=== PATIENT | female | born 1965 | race Caucasian/White ===

== ENCOUNTER 2017-05-01 09:27 | Outpatient (CLI) | payer MEDICARE, MEDICAID ==
--- OUTSIDE RECORDS SUMMARY | 2017-05-01 09:29 | XMS | Clinical Summary ---
:1965 Author Organization [facility] Address [address] [place] [address] Phone Care Team Providers Name Role Phone , Primary Care Provider Unavailable Allergies No Known Allergies Current Medications Prescription Sig. Disp. Refills Start Date End Date Status sevelamer (RENVELA) 800 mg Take 4,000 mg by Active tablet mouth 3 (three) times daily with meals . simvastatin (ZOCOR) 40 MG Take 40 mg by Active tablet mouth nightly. atorvastatin (LIPITOR) 40 Take 20 mg by Active MG tablet mouth daily . amLODIPine (NORVASC) 5 MG Take 10 mg by Active tablet mouth daily . hydrALAZINE (APRESOLINE) Take 10 mg by Active 10 MG tablet mouth 3 (three) times daily. aspirin 81 MG EC tablet Take 81 mg by Active mouth every other day. Active Problems Problem Noted Date Obesity (BMI 30-39.9) 03/15/2016 Essential hypertension, hypertension with unspecified goal 03/15/2016 Diabetes mellitus type 2, controlled, without complications ([facility]) 03/15/2016 Coronary artery disease involving prairie band coronary artery of prairie band heart 03/15 without angina pectoris Hyperlipidemia, unspecified hyperlipidemia type 03/15/2016 Secondary hyperparathyroidism of renal origin ([facility]) 03/15/2016 Pre-transplant evaluation for chronic kidney disease 09/26/2015 Last Assessment & Plan: She is an acceptable candidate pending cardiac cath/cardiac clearance. She was recently hospitalized in November 2015 due to a new diagnosis of CHF. Otherwise she has met her goal weight and reached an appropriate BMI. ESRD (end stage renal disease) ([facility]) 09/26/2015 Last Assessment & Plan: She has been on dialysis for six years. She does produce small amounts of urine at this time. She is an acceptable candidate for kidney transplant pending cardiac clearance. Healthcare maintenance 08/30/2014 Last Assessment & Plan: The patient is up to date on her pap smear and is due for a mammogram. Pre-transplant evaluation for ESRD (end stage renal disease) 01/05/2013 Last Assessment & Plan: 49 y/o female with ESRD secondary to an unknown etiology who presents today in weight management clinic. The patient has not met her weight loss goal to 189 lbs. The patient will remain inactive andwill follow up in our weight management clinic in 3 months. HTN (hypertension) 01/05/2013 Last Assessment & Plan: She will continue to follow up with her primary care physician. Pre-transplant evaluation for CKD (chronic kidney disease) 01/05/2013 Last Assessment & Plan: Patient needs surveillance stress tests. Obesity Overview: BMI 41.5 wt [id number] Last Assessment & Plan: She has been monitoring her intake and exercising as tolerated. Family History Medical History Relation Name Comments Unremarkable Brother 45 Unremarkable Son 18 Relation Name Status Comments Brother 45 Alive Daughter 24 Alive neurofibromatosis Father unknown Other Mother 63 Son 18 Alive Social History Tobacco Use Types Packs/Day Years Used Date Former Smoker Cigarettes 0.2 1 02/03/1999 - 02/04/2000 Smokeless Tobacco: Never Used Alcohol Use Drinks/Week oz/Week Comments Yes 0.0 Social Sex Assigned at Date Recorded Not on file Last Filed Vital Signs Vital Sign Reading Time Taken Blood Pressure 173/81 03/14/2016 9:44 AM CDT Pulse 70 03/14/2016 9:44 AM CDT Temperature 35.7 C (96.2 F) 03/14/2016 9:44 AM CDT Respiratory Rate 18 03/14/2016 9:44 AM CDT Oxygen Saturation - - Inhaled Oxygen Concentration - - Weight 80.6 kg (177 lb 12.8 oz) 03/14/2016 9:44 AM CDT Height 157 cm (5' 1.81") 01/02/2016 8:39 AM CDT Body Mass Index 32.72 03/14/2016 9:44 AM CDT Plan of Treatment Health Maintenance Due Date Last Done Comments INFLUENZA VACCINE 04/27/2017 Results Not on filefrom Last 3 Months
--- NOTE | 2017-05-19 16:33 | MMO ---
BILATERAL DIGITAL SCREENING MAMMOGRAMS: Date: 05/01/17 This patient's mammogram was interpreted with the assistance of computer-aided detection. Comparison made with exam from 12/15/12. FINDINGS: There are scattered fibroglandular densities with benign-appearing calcifications. No suspicious mas ses or calcifications are seen. IMPRESSION: BIRADS 2: Benign Finding(s) Return to annual mammographic screening. POS: [facility]
== END 2017-05-01 09:28 | disposition home or self-care (01) ==
LOC: MAMMO 09:27
PROVIDERS: ATTEND Family Medicine
DX: Z12.31 Encounter for screening mammogram for malignant neoplasm of breast (principal)
CPT/HCPCS: 77067; G0202

== ENCOUNTER 2017-08-06 02:43 | Emergency (ER) | payer MEDICARE, MEDICAID ==
[2017-08-06] MEDS ORDERED: Ondansetron ODT 4 MG TAB ONE (03:44)
[2017-08-06] MEDS ORDERED: Acetaminophen 500 MG TAB ONE (03:44)
[2017-08-06 04:40] LABS: #Eosinphils 0.1 thou/uL (0.0-0.7); #Lymphocytes 0.9 thou/uL (1.20-3.40); #Monocytes 0.4 thou/uL (0.11-0.59); #Neutrophils 4.5 thou/uL (1.40-6.50); %Basophils 0.7 % (0.0-1.0); %Eosinophils 1.4 % (0.0-10.0); %Monocytes 6.8 % (0.0-10.0); %Neutrophils 76.2 % (42.0-75.0); Hemoglobin 9.6 g/dL (12.0-16.0); Mean Corpuscular HGB CONC 33.9 g/dL (32.0-36.0); Mean Corpuscular Hemoglobin 30.1 pg (27.0-31.0); Mean Corpuscular Volume 88.8 fl (81.0-99.0); Mean Platelet Volume 8.4 fL (7.4-10.4); Platelet Count 176 thou/uL (130-400); RBC Distribution Width 14.4 % (11.5-14.5); Red Blood Cell (RBC) Count 3.19 mill/uL (4.20-5.40); White Blood Cell (WBC) Count 5.9 thou/uL (4.8-10.8)
[2017-08-06 04:57] LABS: ALT (SGPT) 7 U/L (8-55); AST (SGOT) 15 U/L (5-34); Albumin 3.8 g/dL (3.5-5.0); Alkaline Phosphatase 80 U/L (40-150); Anion Gap 20 mmol/L (10-20); BUN (Urea Nitrogen) 39 mg/dL (9.8-20.1); Calc. Creatinine Clearance 0 mL/min (70-130); Calcium 10.6 mg/dL (7.8-10.44); Carbon Dioxide 26 mmol/L (22-29); Chloride 92 mmol/L (98-107); Estimated GFR-MDRD 4; Globulin 3.3 g/dL (2.4-3.5); Glucose 99 mg/dL (70-105); Potassium 5.5 mmol/L (3.5-5.1); Protein, Total 7.1 g/dL (6.0-8.3); Sodium 132 mmol/L (136-145)
--- NOTE | 2017-08-06 07:49 | RAD ---
CHEST 2 VIEWS: Date: 08/06/17 HISTORY: 52-year-old female with history of cough, congestion, and flu-like symptoms. COMPARISON: 06/20/16. FINDINGS: There is very severe enlargement of the cardiac silhouette, which is considerably increased when comp ared to the 06/20/16 study. There is some mild vascular congestion, but no confluent pneumonia, pleur al effusion, or overt edema. IMPRESSION: Very marked enlargement of the cardiac silhouette with possibilities including that of a large perica rdial effusion and/or severe cardiomegaly. Mild vascular congestion without pneumonia or acute edema. POS: [facility]
== END 2017-08-06 05:36 | disposition home or self-care (01) ==
LOC: ERS 02:43
DX: K52.9 Noninfective gastroenteritis and colitis, unspecified (principal); I11.0 Hypertensive heart disease with heart failure; I50.9 Heart failure, unspecified; E11.9 Type 2 diabetes mellitus without complications; E78.5 Hyperlipidemia, unspecified; Z99.2 Dependence on renal dialysis
CPT/HCPCS: 36415; 71046; 80053; 85025; Q0162

== ENCOUNTER 2017-08-15 03:08 | Emergency (ER) | payer MEDICARE, MEDICAID ==
[2017-08-15] MEDS ORDERED: Dicyclomine 20 MG TAB ONE (05:18)
[2017-08-15 05:23] LABS: #Eosinphils 0.1 thou/uL (0.0-0.7); #Lymphocytes 0.9 thou/uL (1.20-3.40); #Monocytes 0.4 thou/uL (0.11-0.59); #Neutrophils 6.6 thou/uL (1.40-6.50); %Basophils 0.3 % (0.0-1.0); %Eosinophils 0.7 % (0.0-10.0); %Lymphocytes 11.2 % (21.0-51.0); %Monocytes 4.4 % (0.0-10.0); %Neutrophils 83.5 % (42.0-75.0); Hemoglobin 9.2 g/dL (12.0-16.0); Mean Corpuscular HGB CONC 33.8 g/dL (32.0-36.0); Mean Corpuscular Hemoglobin 30.5 pg (27.0-31.0); Mean Corpuscular Volume 90.2 fl (81.0-99.0); Mean Platelet Volume 8.3 fL (7.4-10.4); Platelet Count 189 thou/uL (130-400); RBC Distribution Width 14.4 % (11.5-14.5); Red Blood Cell (RBC) Count 3.02 mill/uL (4.20-5.40); White Blood Cell (WBC) Count 7.9 thou/uL (4.8-10.8)
[2017-08-15 05:48] LABS: ALT (SGPT) Less than 7 U/L (8-55); AST (SGOT) 13 U/L (5-34); Albumin 3.9 g/dL (3.5-5.0); Alkaline Phosphatase 82 U/L (40-150); Anion Gap 18 mmol/L (10-20); BUN (Urea Nitrogen) 26 mg/dL (9.8-20.1); Bilirubin, Total 0.9 mg/dL (0.2-1.2); Calc. Creatinine Clearance 0 mL/min (70-130); Calcium 10.9 mg/dL (7.8-10.44); Carbon Dioxide 29 mmol/L (22-29); Chloride 92 mmol/L (98-107); Estimated GFR-MDRD 5; Globulin 3.3 g/dL (2.4-3.5); Glucose 116 mg/dL (70-105); Potassium 4.7 mmol/L (3.5-5.1); Protein, Total 7.2 g/dL (6.0-8.3); Sodium 134 mmol/L (136-145)
== END 2017-08-15 06:21 | disposition home or self-care (01) ==
LOC: ERS 03:08
DX: R19.7 Diarrhea, unspecified (principal); I11.0 Hypertensive heart disease with heart failure; I50.9 Heart failure, unspecified; E11.9 Type 2 diabetes mellitus without complications; E78.5 Hyperlipidemia, unspecified; Z99.2 Dependence on renal dialysis; Z87.891 Personal history of nicotine dependence; Z79.899 Other long term (current) drug therapy
CPT/HCPCS: 36415; 80053; 82274; 85025; 99284

== ENCOUNTER 2018-05-21 08:11 | Outpatient (CLI) | payer MEDICARE, MEDICAID ==
--- NOTE | 2018-05-21 10:50 | ULT ---
RENAL ULTRASOUND: HISTORY: Renal failure. TECHNIQUE: Real-time imaging of the right and left kidneys was performed. FINDINGS: Both kidneys show cortical thinning. The right kidney measures 9.6 cm. The left kidney is difficult to visualize. It measures approximately 5.6 cm in size. There is what appears to be a probable cys t, measuring 1.6 cm. No obstruction. The bladder was empty at the time of this exam. IMPRESSION: Cortical thinning of both kidneys with a small left kidney. No obstruction. Incidental note is made of a 1.6 cm left renal cyst. POS: [facility]
== END 2018-05-21 08:12 | disposition home or self-care (01) ==
LOC: BICULT 08:11
PROVIDERS: ATTEND Urology
DX: N28.9 Disorder of kidney and ureter, unspecified (principal)
CPT/HCPCS: 76770

== ENCOUNTER 2018-07-16 14:59 | Inpatient (IN) | payer MEDICARE, MEDICAID ==
[2018-07-16 16:49] LABS: #Eosinphils 0.1 thou/uL (0.0-0.7); #Lymphocytes 1.6 thou/uL (1.20-3.40); #Monocytes 0.4 thou/uL (0.11-0.59); #Neutrophils 4.8 thou/uL (1.40-6.50); %Basophils 0.1 % (0.0-1.0); %Eosinophils 1.9 % (0.0-10.0); %Monocytes 5.6 % (0.0-10.0); %Neutrophils 69.5 % (42.0-75.0); Hemoglobin 10.7 g/dL (12.0-16.0); Mean Corpuscular HGB CONC 32.6 g/dL (32.0-36.0); Mean Corpuscular Hemoglobin 30.6 pg (27.0-31.0); Mean Corpuscular Volume 93.6 fL (78.0-98.0); Mean Platelet Volume 9.1 fL (7.4-10.4); Platelet Count 226 thou/uL (130-400); RBC Distribution Width 11.5 % (11.5-14.5); Red Blood Cell (RBC) Count 3.51 mill/uL (4.20-5.40); White Blood Cell (WBC) Count 6.9 thou/uL (4.8-10.8)
[2018-07-16 16:56] LABS: INR-International Normal Ratio 1.1; PTT 29.9 SEC (22.9-36.1); Prothrombin Time 14.4 SEC (12.0-14.7)
--- NOTE | 2018-07-16 17:03 | CT ---
CT BRAIN WITHOUT CONTRAST: Date: 07/16/18 HISTORY: Left eye pain, blurry vision, possible stroke. FINDINGS: No evidence of acute infarct, hemorrhage, midline shift, or abnormal extra-axial fluid collections ar e seen. The ventricular size is appropriate and the basilar cisterns are patent. The bony calvarium i s intact. There is mucosal disease in the right sphenoid sinus. IMPRESSION: No CT evidence of acute intracranial process. POS: [facility]
[2018-07-16 17:10] LABS: ALT (SGPT) Less than 7 U/L (8-55); AST (SGOT) 13 U/L (5-34); Albumin 4.3 g/dL (3.5-5.0); Alkaline Phosphatase 127 U/L (40-150); Anion Gap 22 mmol/L (10-20); BUN (Urea Nitrogen) 44 mg/dL (9.8-20.1); Bilirubin, Total 0.6 mg/dL (0.2-1.2); CK (CPK) 62 U/L (29-168); Calc. Creatinine Clearance 0 mL/min (70-130); Calcium 10.3 mg/dL (7.8-10.44); Carbon Dioxide 28 mmol/L (22-29); Chloride 93 mmol/L (98-107); Estimated GFR-MDRD 4; Globulin 4.2 g/dL (2.4-3.5); Glucose 87 mg/dL (70-105); Potassium 5.2 mmol/L (3.5-5.1); Protein, Total 8.5 g/dL (6.0-8.3); Sodium 138 mmol/L (136-145)
[2018-07-16 17:41] LABS: CKMB 3.5 ng/mL (0-6.6)
--- NOTE | 2018-07-16 19:47 | PDOC.FPRHP ---
- History of Present Illness Chief Complaint: Vision loss History of Present Illness: This is a 53 yo female with a pmh of CHF, DM2, HLD, HTN, ESRD on HD who presents to the ED with a cc of left eye blurred vision. She states that it started after she bend down. She denies pain but states that her vision will go from blurry to absent. Pt reports nothing like this before. She was seen at the [facility] and was sent to an eye doctor who instructed her to come into the ED for further evaluation. She denies any previous vision loss, temporal pain, any loss of strength, or changes in sensation. - Allergies/Adverse Reactions Allergies Allergy/AdvReac Type Severity Reaction Status Date / Time iodine Allergy Verified 07/16/18 23:17 - Home Medications Medication Instructions Recorded Confirmed Type Cholecalciferol (Vitamin D3) 1,000 units PO DAILY 07/16/18 07/16/18 History [Vitamin D] Midodrine HCl 10 mg PO ASDIR 07/16/18 07/16/18 History Pantoprazole [Protonix] 40 mg PO DAILY 07/16/18 07/16/18 History Sevelamer Carbonate [Renvela] 6 tab PO TID-WM 07/16/18 07/16/18 History - History PMHx: DM2, HTN, HLD, ESRD on HD MWF, CHF PSHx: Rt arm av fistula, hysterectomy FHx: noncontributory Social: Denies current RENAN, history of tobacco use - Review of Systems General: denies: fever/chills, weight/appetite/sleep changes Eyes: reports: vision changes (loss in right eye. She states she can see light. See denies any improvement in her vision). denies: eye pain ENT: denies: nasal congestion, rhinorrhea Respiratory: denies: cough, congestion, shortness of breath Cardiovascular: denies: chest pain, palpitation, edema Gastrointestinal: denies: nausea, vomiting, diarrhea, constipation Skin: denies: rashes, lesions Musculoskeletal: denies: pain, tenderness Neurological: denies: numbness, syncope, weakness Psychological: denies: anxiety, depression - Vital signs BP: 145/83 HR: 71 RR: 17 Tmax: 98.0 Pox: 100% on ra Wt: 89.36 kg - Physical Exam Constitutional: NAD, awake, alert and oriented, well developed HEENT: normocephalic and atraumatic, EOMI, MMM, other (poor dentition, left eye has no pupillary reflex but reacts to light in right eye.) Neck: trachea midline, no JVD Chest: no-tender to palpation Heart: RRR, normal S1/S2 (Systolic murmur 2/6) Lungs: CTAB, no respiratory distress, good air movement, no wheezing Abdomen: soft, non-tender, bowel sounds present Musculoskeletal: normal structure, normal tone, ROM grossly normal Neurological: normal sensation, other (Cranial nerve III-XII intact, loss of vision in left eye) Skin: no rash/lesions, capillary refill <2 seconds Heme/Lymphatic: no unusual bruising or bleeding Psychiatric: normal mood and affect, good judgment and insight FMR H&P: Results - Labs Result Diagrams: 07/16/18 16:32 07/16/18 16:32 Lab results: WBC 6.9 thou/uL (4.8-10.8) 07/16/18 16:32 Hgb 10.7 g/dL (12.0-16.0) L 07/16/18 16:32 Hct 32.9 % (36.0-47.0) L 07/16/18 16:32 MCV 93.6 fL (78.0-98.0) 07/16/18 16:32 Plt Count 226 thou/uL (130-400) 07/16/18 16:32 Neutrophils % 69.5 % (42.0-75.0) 07/16/18 16:32 Sodium 138 mmol/L (136-145) 07/16/18 16:32 Potassium 5.2 mmol/L (3.5-5.1) H 07/16/18 16:32 Chloride 93 mmol/L (98-107) L 07/16/18 16:32 Carbon Dioxide 28 mmol/L (22-29) 07/16/18 16:32 BUN 44 mg/dL (9.8-20.1) H 07/16/18 16:32 Creatinine 9.49 mg/dL (0.6-1.1) H 07/16/18 16:32 Glucose 87 mg/dL (70-105) 07/16/18 16:32 Calcium 10.3 mg/dL (7.8-10.44) 07/16/18 16:32 Total Bilirubin 0.6 mg/dL (0.2-1.2) 07/16/18 16:32 AST 13 U/L (5-34) 07/16/18 16:32 ALT Less than 7 U/L (8-55) L 07/16/18 16:32 Alkaline Phosphatase 127 U/L (40-150) 07/16/18 16:32 Creatine Kinase 62 U/L (29-168) 07/16/18 16:32 CK-MB (CK-2) 3.5 ng/mL (0-6.6) 07/16/18 16:31 Serum Total Protein 8.5 g/dL (6.0-8.3) H 07/16/18 16:32 Albumin 4.3 g/dL (3.5-5.0) 07/16/18 16:32 - Radiology Interpretation CT scan - head Status: report reviewed by me (No acute intracranial process) FMR H&P: A/P - Problem List (1) Vision loss of left eye Current Visit: Yes Status: Acute Code(s): H54.62 - UNQUALIFIED VISUAL LOSS, LEFT EYE, NORMAL VISION RIGHT EYE (2) ESRD (end stage renal disease) on dialysis Current Visit: Yes Status: Acute Code(s): N18.6 - END STAGE RENAL DISEASE; Z99.2 - DEPENDENCE ON RENAL DIALYSIS (3) CHF (congestive heart failure) Current Visit: Yes Status: Acute Code(s): I50.9 - HEART FAILURE, UNSPECIFIED (4) Type 2 diabetes mellitus Current Visit: Yes Status: Acute (5) HLD (hyperlipidemia) Current Visit: Yes Status: Acute Code(s): E78.5 - HYPERLIPIDEMIA, UNSPECIFIED (6) HTN (hypertension) Current Visit: Yes Status: Acute Code(s): I10 - ESSENTIAL (PRIMARY) HYPERTENSION (7) Elevated troponin Current Visit: Yes Status: Acute Code(s): R74.8 - ABNORMAL LEVELS OF OTHER SERUM ENZYMES - Plan This is a 53 yo female with a pmh of CHF, DM2, HLD, HTN, ESRD on HD Vision loss in left eye 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 Mullen HTN -Continue home meds HLD -Continue home meds DM2 -Continue home meds -ACHS nishant, CORKY Code: Full Prophylaxis: SCDS Family: none at bedside Disposition: home in 1-2 days FMR H&P: Upper Level - Pertinent history 53F who was shopping at [employer] yesterday when she had an acute painless loss of vision in her left eye. She is still able to see out of the eye, but has very limited visual acuity. The visual symptoms remain unchanged since onset. She denies any recent history of headaches, jaw claudication, neck stiffness, myalgias/arthralgias. After initial onset she presented to [facility] ED and was evaluated. She was discharged home with an ophthalmology referral. Ophtho evaluation revealed likely central retinal artery occlusion, per patient. She then proceeded to go to her scheduled dialysis session where her postal supervisor suggested she present to ED for further w/u. . - Pertinent findings Gen: A&Ox3 CV: RRR; no murmurs Pulm: CTA-B Neuro: CNII-XII intact; normal sensation and strength of all extremities; decreased visual acuity of left eye K: 5.2 BUN/Cr: 44/9.5 trop: 1.34 CK-MB: 3.5 CT head: no acute process EKG: NSR - Plan Date/Time: 07/16/181945 IJames, have evaluated this patient and agree with findings/plan as outlined by validation intern resident. Pertinent changes/additions are listed here. Likely central retinal artery occlusion: established via ophthalmologic evaluation in the outpatient setting. She presents outside the window for any interventional therapy. Will finish work up with TTE and CT head/neck. After speaking with radiology, there is no confirmatory imaging study for CRAO. Some suspicion for temporal arteritis. She is not c/o headache or jaw claudication Elevated troponin: no chest pain with normal EKG and negative CK-MB. Continue to trend with repeat EKGs ESRD on HD: Dr. Mullen has evaluated patient and will be resuming her HD tomorrow Addendum - Attending - Attending Attestation Date/Time: 07/16/182229 I personally evaluated the patient and discussed the management with Dr. Tanner /Mikhail. I agree with the History, Examination, Assessment and Plan documented above with any addition or exceptions noted below. Patient here with acute onset of painless vision loss in L eye yesterday. She reports blurring and minimal vision, but can see general shapes out of that eye. Denies headache, chest pain, shortness of breath, fevers, chills, nausea, malaise. She dies have some visual acuity in the L eye, but definitely a medial visual field defect. EOMI and L pupil is reactive but sluggish. Concern for retunal artery occlusion in known vasculopath. Will obtain workup for occlusion , vascular disease, cardioembolic disease, or inflammatory condition such as giant cell arteritis. Will obtain CTA, ESR, and have discussed case with Ophthalmology. If this is arterial occlusion, she is outside the window for therapeutics. She also has elevated troponin in the absence of CKMB elevation or chest pain. Likely 2/2 her ESRD status, monito for chest pain or telemetry changes.
[2018-07-16] MEDS ORDERED: Dextrose 50% Abboject 50 ML SYRINGE SLOW IVP PRN (21:07)
[2018-07-16] MEDS ORDERED: Dextrose 5% in Water 1,000 ML IV PRN (21:07)
[2018-07-16] MEDS ORDERED: Acetaminophen 325 MG TAB PO PRN (21:07)
[2018-07-16] MEDS ORDERED: HumaLOG 300 UNITS/3 ML VIAL SC PRN ×2 (21:07)
[2018-07-16 23:11] LABS: CKMB 2.6 ng/mL (0-6.6)
[2018-07-16 23:28] VITALS: BMI 21.6
[2018-07-16 23:35] LABS: Critical Call Chem Troponin I RESULT DECREASING; Troponin I 1.238 ng/mL (< 0.028)
--- NOTE | 2018-07-17 01:44 | CON ---
DATE OF CONSULTATION: NEPHROLOGY CONSULTATION REASON FOR CONSULTATION: End stage renal disease, on maintenance hemodialysis. HISTORY OF PRESENT ILLNESS: This is a very pleasant 53-year-old female with the past medical history of end-stage renal disease and hypertension, who was sent to the emergency room after loss of vision in one of her eyes, which was attributed to central retinal artery occlusion and was sent here for vasculitic workup. The patient at this time denies no headache, numbness, tingling, or weakness. Has partial loss of vision in one of her eyes. PAST MEDICAL HISTORY: Significant for anemia, end-stage renal disease, history of tunneled dialysis catheter, history of hypertension, history of AV fistula, history of pericardial effusion, history of tobacco abuse in the past, history of secondary hypoparathyroidism. SOCIAL HISTORY: No alcohol or drug use. MEDICATIONS: Home medication, list reviewed. Hospital medication, list reviewed. ALLERGIES: REVIEWED. REVIEW OF SYSTEMS: A 15-point review of systems was performed and was negative except for positives noted above. NECK: No swelling or lumps. NOSE: No epistaxis or discharge. EYES: No diplopia or pain. MUSCULOSKELETAL: No joint pain. NEUROPSYCHIATRIC SYSTEMS: No suicidal ideation. No ideation. SKIN: Denies any rash or ulcer. CONSTITUTIONAL: No fever or chills. OBJECTIVE: GENERAL: The patient is awake, alert, in no acute distress. VITAL SIGNS: Afebrile, pulse 75, breathing 16, and blood pressure 130/70. GENERAL APPEARANCE AND MENTAL STATUS: Fair. HEAD/NECK: Normocephalic. Atraumatic. EYES: EOMI. No deformity. EARS: Clear. No ulcers. NOSE: Intact. No lesions. MOUTH: Clear. No discharge. THROAT: Clear. No exudate. LUNGS: Clear. No crackles. CARDIAC: S1, S2. No rub. ABDOMEN: Benign. Bowel sounds positive. GENITALIA/RECTUM: Perea absent. BACK/EXTREMITIES: Edema 0+. NEUROLOGICAL: Alert and motor intact. LABORATORY DATA: Labs show potassium 5.2, creatinine 9.4. ASSESSMENT AND PLAN: 1. Stage chronic kidney disease, planned dialysis in the morning. 2. Hyperkalemia, planned dialysis. 3. Anemia. 4. Central retinal artery occlusion. The patient will need a vasculitic workup as well as embolic workup. Job ID: [id number]
[2018-07-17 06:30] LABS: Anion Gap 21 mmol/L (10-20); BUN (Urea Nitrogen) 56 mg/dL (9.8-20.1); Calc. Creatinine Clearance 5 mL/min (70-130); Calcium 9.3 mg/dL (7.8-10.44); Carbon Dioxide 24 mmol/L (22-29); Chloride 93 mmol/L (98-107); Estimated GFR-MDRD 4; Glucose 94 mg/dL (70-105); Potassium 5.2 mmol/L (3.5-5.1); Sodium 133 mmol/L (136-145)
[2018-07-17 08:35] LABS: #Eosinphils 0.1 thou/uL (0.0-0.7); #Lymphocytes 1.2 thou/uL (1.20-3.40); #Monocytes 0.4 thou/uL (0.11-0.59); %Basophils 0.6 % (0.0-1.0); %Eosinophils 2.6 % (0.0-10.0); %Lymphocytes 21.3 % (21.0-51.0); %Monocytes 6.3 % (0.0-10.0); %Neutrophils 69.1 % (42.0-75.0); Hemoglobin 9.2 g/dL (12.0-16.0); Mean Corpuscular HGB CONC 34.3 g/dL (32.0-36.0); Mean Corpuscular Hemoglobin 31.6 pg (27.0-31.0); Mean Corpuscular Volume 92.3 fL (78.0-98.0); Mean Platelet Volume 8.9 fL (7.4-10.4); Platelet Count 189 thou/uL (130-400); RBC Distribution Width 11.4 % (11.5-14.5); Red Blood Cell (RBC) Count 2.91 mill/uL (4.20-5.40); White Blood Cell (WBC) Count 5.7 thou/uL (4.8-10.8)
--- NOTE | 2018-07-17 08:50 | PDOC.FM ---
- Subjective Subjective: Pt reports continued blindness in L eye today. No changes in vision. Otherwise is asymptomatic with no complaints/concerns no fever/ chill, no sob no cp - Objective MAR Reviewed: Yes Vital Signs & Weight: Vital Signs (12 hours) Temp Pulse Resp BP Pulse Ox 07/17/18 07:39 97.6 F 65 18 139/79 98 07/17/18 03:24 98.9 F 75 16 120/59 L 98 07/16/18 21:07 97.8 F 69 16 173/66 H 99 Weight Weight 51.965 kg Result Diagrams: 07/17/18 08:21 07/18/18 19:19 Phys Exam - Physical Examination Constitutional: NAD HEENT: moist MMs, sclera anicteric Neck: no JVD, supple Respiratory: no wheezing, clear to auscultation bilateral Cardiovascular: RRR grade 3/6 holosystolic murmur Gastrointestinal: soft, non-tender Musculoskeletal: pulses present Neurological: normal sensation, moves all 4 limbs Psychiatric: normal affect Skin: no rash, normal turgor Dx/Plan (1) Vision loss of left eye Code(s): H54.62 - UNQUALIFIED VISUAL LOSS, LEFT EYE, NORMAL VISION RIGHT EYE Status: Acute (2) CHF (congestive heart failure) Code(s): I50.9 - HEART FAILURE, UNSPECIFIED Status: Acute (3) ESRD (end stage renal disease) on dialysis Code(s): N18.6 - END STAGE RENAL DISEASE; Z99.2 - DEPENDENCE ON RENAL DIALYSIS Status: Acute (4) Elevated troponin Code(s): R74.8 - ABNORMAL LEVELS OF OTHER SERUM ENZYMES Status: Acute (5) HLD (hyperlipidemia) Code(s): E78.5 - HYPERLIPIDEMIA, UNSPECIFIED Status: Acute (6) HTN (hypertension) Code(s): I10 - ESSENTIAL (PRIMARY) HYPERTENSION Status: Acute (7) Type 2 diabetes mellitus Status: Acute - Plan Plan: This is a 53 yo female with a pmh of CHF, DM2, HLD, HTN, ESRD on HD Vision loss in left eye 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 Trending up 1.3->1.4->1.23. No chest pain at this time P- monitor cardiac symptoms CHF -Schedule echocardiogram for the morning -Continue home meds ESRD -Consult Dr. Mullen- plans for dialysis this AM HTN -Continue home meds HLD -Continue home meds DM2 -Continue home meds -CORKY Silva Code: Full Addendum - Attending - Attending Attestation Date/Time: 07/19/18 3621 I personally evaluated the patient and discussed the management with Dr. Steele and Dr. Phillips I agree with the History, Examination, Assessment and Plan documented above with any addition or exceptions noted below. 53 yo female with multiple medical conditions admitted for CVA workup. HD#1 Patient reports blurry vision. No other complaints. VS, labs, and imaging reviewed. 1. Retinal artery occlusion: Negative workup for temporal arteritis. GIOVANY pending. Will complete CVA workup. MRI ordered due to iodine allergy. Adjust home meds as needed. Dispo: Stroke team following. Workup pending. Discussed treatment options with ophtho. Dr. Bain to follow up outpatient. No treatment option at this time due to timing of event. Erika
[2018-07-17] MEDS ORDERED: Midodrine HCl 5 MG TAB PO SCH (09:00)
[2018-07-17] MEDS: Metoprolol Tartrate 25 MG TAB PO SCH ×2 (09:06→20:26)
[2018-07-17] MEDS: Aspirin 81 mg Enteric Coated Tablet PO SCH (09:06)
[2018-07-17] MEDS: Sevelamer Carbonate 800 MG TAB PO SCH ×3 (09:10→18:32)
--- NOTE | 2018-07-17 12:34 | EKG ---
Test Reason : Blood Pressure : / mmHG Vent. Rate : 063 BPM Atrial Rate : 063 BPM P-R Int : 214 ms QRS Dur : 090 ms QT Int : 456 ms P-R-T Axes : 024 -04 045 degrees QTc Int : 466 ms Sinus rhythm with 1st degree A-V block Otherwise normal ECG When compared with ECG of 16-JUL-2018 16:06, (Unconfirmed) Criteria for Anterior infarct is no longer Present Confirmed by YUDI BIANCHI ([id number]) on 07/17/2018 12:33:58 PM Referred By: GARETH Ackerman Confirmed By:YUDI BIANCHI
[2018-07-17 15:07] LABS: ANA Symphony (Qualitative) Negative (Negative); ANA Symphony (Quantitative) 0.2 Ratio (< 0.7 Negative); dsDNA IgG Antibody 1.4 IU/mL (<10 Negative)
--- NOTE | 2018-07-17 18:27 | PRG ---
DATE OF SERVICE: 07/17/2018 SUBJECTIVE: A 53-year-old female, being seen for end-stage renal disease. The patient denies any nausea, vomiting, or chest pain. OBJECTIVE: CONSTITUTIONAL: The patient is awake and alert. VITAL SIGNS: Afebrile, pulse 62, breathing 16, blood pressure 120/59. GENERAL APPEARANCE AND MENTAL STATUS: Fair. HEAD/NECK: Normocephalic, atraumatic. EYES: EOMI. No deformity. EARS: Clear. No ulcers. NOSE: Intact. No lesions. MOUTH: Clear. No discharge. THROAT: Clear. No exudate. LUNGS: Clear. No crackles. CARDIAC: S1, S2. No rub. ABDOMEN: Benign. Bowel sounds positive. GENITALIA/RECTUM: Perea absent. BACK/EXTREMITIES: Edema 0+. NEUROLOGICAL: Alert and motor intact. LABORATORY DATA: Labs show hemoglobin 9.2. Potassium 5.2. ASSESSMENT AND PLAN: 1. Stage 3 chronic kidney disease, planned dialysis. 2. Hypertension, stable. 3. Anemia, stable. 4. Medications based on glomerular filtration rate. 5. are appropriate. Job ID: [id number]
--- NOTE | 2018-07-18 07:09 | PDOC.FM ---
- Subjective Subjective: Pt feeling well this AM. No changes in vision. Pt expresses desire to go home. no fever/chills, no new nuerological deficits. no syncope - Objective MAR Reviewed: Yes Vital Signs & Weight: Vital Signs (12 hours) Temp Pulse Resp BP Pulse Ox 07/18/18 04:00 98.4 F 60 18 140/78 98 07/18/18 00:00 98.4 F 59 L 18 144/73 H 98 07/17/18 20:00 98.1 F 62 19 146/78 H 99 Weight Weight 52.208 kg I&O: 07/17/18 07/18/18 07/19/18 06:59 06:59 06:59 Intake Total 600 1530 Output Total 2300 Balance 600 -770 Result Diagrams: 07/17/18 08:21 07/18/18 04:51 Phys Exam - Physical Examination Constitutional: NAD HEENT: moist MMs, sclera anicteric Neck: no nodes, supple Respiratory: no wheezing, clear to auscultation bilateral Cardiovascular: RRR grade 2/6 holosystolic murmur Gastrointestinal: soft, non-tender Musculoskeletal: pulses present Neurological: normal sensation, moves all 4 limbs Psychiatric: normal affect, A&O x 3 Dx/Plan (1) Vision loss of left eye Code(s): H54.62 - UNQUALIFIED VISUAL LOSS, LEFT EYE, NORMAL VISION RIGHT EYE Status: Acute (2) CHF (congestive heart failure) Code(s): I50.9 - HEART FAILURE, UNSPECIFIED Status: Acute (3) ESRD (end stage renal disease) on dialysis Code(s): N18.6 - END STAGE RENAL DISEASE; Z99.2 - DEPENDENCE ON RENAL DIALYSIS Status: Acute (4) Elevated troponin Code(s): R74.8 - ABNORMAL LEVELS OF OTHER SERUM ENZYMES Status: Acute (5) HLD (hyperlipidemia) Code(s): E78.5 - HYPERLIPIDEMIA, UNSPECIFIED Status: Acute (6) HTN (hypertension) Code(s): I10 - ESSENTIAL (PRIMARY) HYPERTENSION Status: Acute (7) Type 2 diabetes mellitus Status: Acute - Plan Plan: This is a 53 yo female with a pmh of CHF, DM2, HLD, HTN, ESRD on HD Vision loss in left eye 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 Echo shows no clots with EF 60-65% P- awaiting brain/orbit MRI -f/u ophto outpatient -likely DC today Elevated troponin A- EKG is without changes. 1.3->1.4->1.23. No chest pain at this time P- monitor cardiac symptoms CHF -Echo shows no clots with EF 60-65% -Continue home meds ESRD -Consult Dr. Mullen- dialysis yesterday HTN -Continue home meds HLD -Continue home meds DM2 -Continue home meds -ACHS accuchecks, SSI Code: Full Addendum - Attending - Attending Attestation Date/Time: 07/18/18 0981 I personally evaluated the patient and discussed the management with Dr. Steele I agree with the History, Examination, Assessment and Plan documented above with any addition or exceptions noted below- Ptainet denies any complaints. No improvement in her vision. Afebrile VSS. 1) Vision loss secondary to central retinal artery occlusion- vasculitis workup negative to date. MRI of brain/ orbit pending. 2) ESRD- continue HD as per nephrology. 3) DM- stable; continue to monitor accuchecks and insulin.
[2018-07-18 07:12] LABS: Anion Gap 17 mmol/L (10-20); BUN (Urea Nitrogen) 36 mg/dL (9.8-20.1); Calc. Creatinine Clearance 7 mL/min (70-130); Calcium 9.8 mg/dL (7.8-10.44); Carbon Dioxide 27 mmol/L (22-29); Chloride 95 mmol/L (98-107); Estimated GFR-MDRD 6; Glucose 90 mg/dL (70-105); Potassium 5.2 mmol/L (3.5-5.1); Sodium 134 mmol/L (136-145)
[2018-07-18] MEDS: Sevelamer Carbonate 800 MG TAB PO SCH ×3 (08:00→16:55)
[2018-07-18] MEDS: Aspirin 81 mg Enteric Coated Tablet PO SCH (08:01)
[2018-07-18] MEDS: Metoprolol Tartrate 25 MG TAB PO SCH ×2 (08:01→21:50)
--- NOTE | 2018-07-18 12:21 | MRI ---
BRAIN MRI WITHOUT CONTRAST: Date: 07/18/18 COMPARISON: None. HISTORY: Vision loss in left eye. TECHNIQUE: Multiplanar, multisequence MR imaging of the brain is obtained without contrast. IV contrast was not administered secondary to the patient's history of end-stage renal disease, on dialysis. FINDINGS: Axial gradient echo imaging demonstrates no evidence for intracranial hemorrhage. Incidental note is made of a subcentimeter lipoma along the tentorium on the left. There are multiple scattered subcentimeter foci of increased signal intensity on T2 and FLAIR imaging within the periventricular, deep, and subcortical white matter, evidence of small vessel disease. There is polypoid mucosal thickening of the sphenoid sinus on the right. There are a few opacified ma stoid air cells on the right. There is no midline shift, mass effect, or ventricular enlargement. Coronal fat saturated T2-weighted imaging through the orbits appears grossly unremarkable, but is nick ited on the basis of motion artifact. There is a punctate area of restricted diffusion within the posteromedial aspect of the putamen on th e right, suggesting a punctate area of acute infarction. In addition, there is a punctate focus of increased signal intensity on the diffusion-weighted sequen ce within the peripheral aspect of the right temporoparietal region which may signify an additional p unctate focus of acute infarction. There is no midline shift or mass effect. No ventricular enlargement. IMPRESSION: 1. Findings suggesting two punctate foci of right-sided acute infarction as detailed above. 2. Evidence of small vessel disease. 3. No intracranial hemorrhage appreciated. POS: [facility]
--- NOTE | 2018-07-18 14:10 | PRG ---
DATE OF SERVICE: 07/18/2018 SUBJECTIVE: Presented for end-stage renal disease. The patient denies any nausea, vomiting, or chest pain. OBJECTIVE: CONSTITUTIONAL: Awake, alert, in no acute distress. VITAL SIGNS: Afebrile, pulse 66, breathing 16, blood pressure 124/71. GENERAL APPEARANCE AND MENTAL STATUS: Fair. HEAD/NECK: Normocephalic. Atraumatic. EYES: EOMI. No deformity. EARS: Clear. No ulcers. NOSE: Intact. No lesions. MOUTH: Clear. No discharge. THROAT: Clear. No exudate. LUNGS: Clear. No crackles. CARDIAC: S1, S2. No rub. ABDOMEN: Benign. Bowel sounds positive. GENITALIA/RECTUM: Pe[place] absent. BACK/EXTREMITIES: Edema 0+. NEUROLOGICAL: Alert and motor intact ASSESSMENT AND RECOMMENDATION: 1. Stage 6 chronic kidney disease, continue hemodialysis. 2. Hypertension, stable. 3. Anemia, stable. 4. Hyperkalemia. Recommend low-potassium diet. Job ID: [id number]
[2018-07-18 19:56] LABS: Anion Gap 16 mmol/L (10-20); BUN (Urea Nitrogen) 47 mg/dL (9.8-20.1); Calc. Creatinine Clearance 6 mL/min (70-130); Calcium 9.8 mg/dL (7.8-10.44); Carbon Dioxide 29 mmol/L (22-29); Chloride 95 mmol/L (98-107); Estimated GFR-MDRD 5; Glucose 93 mg/dL (70-105); Potassium 5.1 mmol/L (3.5-5.1); Sodium 135 mmol/L (136-145)
[2018-07-18] MEDS ORDERED: Simvastatin 5 MG TAB PO SCH (21:00)
--- NOTE | 2018-07-19 07:27 | PDOC.FM ---
- Subjective Subjective: Pt reports poor rest overnight 2/2 hospital disturbances. otherwise no complaints. pt desires to go home. no fever/chills, no new neuro symptoms, no syncope - Objective MAR Reviewed: Yes Vital Signs & Weight: Vital Signs (12 hours) Temp Pulse Resp BP Pulse Ox 07/19/18 04:00 98.5 F 60 16 136/73 99 07/19/18 00:00 98.2 F 63 16 144/69 H 98 07/18/18 19:56 97.8 F 65 16 155/76 H 100 Weight Weight 52.208 kg I&O: 07/18/18 07/19/18 07/20/18 06:59 06:59 06:59 Intake Total 1530 600 Output Total 2300 Balance -770 600 Result Diagrams: 07/17/18 08:21 07/18/18 19:19 Phys Exam - Physical Examination Constitutional: NAD HEENT: moist MMs, sclera anicteric Neck: no JVD, supple Respiratory: no wheezing, clear to auscultation bilateral Cardiovascular: RRR, no rub Gastrointestinal: soft, non-tender Musculoskeletal: no edema, pulses present Neurological: normal sensation, moves all 4 limbs Psychiatric: normal affect, A&O x 3 Skin: no rash, normal turgor Dx/Plan (1) Vision loss of left eye Code(s): H54.62 - UNQUALIFIED VISUAL LOSS, LEFT EYE, NORMAL VISION RIGHT EYE Status: Acute (2) CHF (congestive heart failure) Code(s): I50.9 - HEART FAILURE, UNSPECIFIED Status: Acute (3) ESRD (end stage renal disease) on dialysis Code(s): N18.6 - END STAGE RENAL DISEASE; Z99.2 - DEPENDENCE ON RENAL DIALYSIS Status: Acute (4) Elevated troponin Code(s): R74.8 - ABNORMAL LEVELS OF OTHER SERUM ENZYMES Status: Acute (5) HLD (hyperlipidemia) Code(s): E78.5 - HYPERLIPIDEMIA, UNSPECIFIED Status: Acute (6) HTN (hypertension) Code(s): I10 - ESSENTIAL (PRIMARY) HYPERTENSION Status: Acute (7) Type 2 diabetes mellitus Status: Acute - Plan Plan: This is a 53 yo female with a pmh of CHF, DM2, HLD, HTN, ESRD on HD Acute ischemic stroke A- MRI shows punctate strokes in R temporoparietal region. Pt not symptomatic. Neuro is consulted. Pt on ASA, statin, clopidogrel. 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 Echo shows no clots with EF 60-65% P- pt on ASA, statin, clopidogrel -f/u ophto outpatient Elevated troponin A- EKG is without changes. 1.3->1.4->1.23. No chest pain at this time P- monitor cardiac symptoms hyperkalemia A- K 5.2 yesterday, 5.1 today, s/p kayexalte P- follow nephro recs- low potassium diet CHF -Echo shows no clots with EF 60-65% -Continue home meds ESRD -Consult Dr. Mullen- resume scheduled dialysis HTN -Continue home meds HLD -Continue home meds DM2 -Continue home meds -[facility] nishant, CORKY Code: Full Addendum - Attending - Attending Attestation Date/Time: 07/19/18 1034 I personally evaluated the patient and discussed the management with Dr. Steele I agree with the History, Examination, Assessment and Plan documented above with any addition or exceptions noted below- Patient without complaints. Wants to go home. Afebrile VSS. A/P: 1) Central retinal artery occlusion- stable; follow-up with ophthamology as outpatient. 2) CVA- incidental finding on MRI; neurology consulted and recommends ASA and plavix for secondary prevention. Plan to obtain carotid doppler and if negative d/c home. 2) ESRD- contonue HD. 3 ) DM- stable
[2018-07-19 07:36] VITALS: TEMP 98.3
[2018-07-19] MEDS: Aspirin 81 mg Enteric Coated Tablet PO SCH (08:00)
[2018-07-19] MEDS: Sevelamer Carbonate 800 MG TAB PO SCH ×2 (08:00→13:06)
[2018-07-19] MEDS: Metoprolol Tartrate 25 MG TAB PO SCH (08:00)
[2018-07-19] MEDS ORDERED: Clopidogrel Bisulfate 75 MG TAB PO SCH (09:00)
[2018-07-19] MEDS ORDERED: Ubidecarenone 50 MG CAP PO SCH (09:00)
[2018-07-19] MEDS: Heparin 5,000 UNITS/ML VIAL SC SCH ×2 (09:07→14:11)
[2018-07-19 10:46] VITALS: BP 140/77
--- NOTE | 2018-07-19 14:23 | ULT ---
BILATERAL CAROTID DUPLEX ULTRASOUND: DATE: 07/19/18 HISTORY: CVA. TECHNIQUE: Francis scale ultrasound with color flow and spectral Doppler imaging of the extracranial carotid artery systems was performed bilaterally. FINDINGS: There is plaque formation on either side. The peak systolic velocity in the right ICA measures 58 cm/second with an end-diastolic velocity of 1 7 cm/second and a systolic ratio of 0.60. The peak systolic velocity in the left ICA measures 57 cm/second with an end-diastolic velocity of 12 cm/second and a systolic ratio of 0.68. IMPRESSION: No evidence of hemodynamically significant stenosis in either ICA. POS: [facility]
--- NOTE | 2018-07-19 15:15 | PRG ---
DATE OF SERVICE: 07/19/2018 SUBJECTIVE: A 53-year-old female, being seen for end-stage renal disease. The patient denies any nausea, vomiting, or chest pain. OBJECTIVE: CONSTITUTIONAL: Awake, alert, in no acute distress. VITAL SIGNS: Temperature afebrile, pulse 65, breathing 16, blood pressure 123/66. GENERAL APPEARANCE AND MENTAL STATUS: Fair. HEAD/NECK: Normocephalic. Atraumatic. EYES: EOMI. No deformity. EARS: Clear. No ulcers. NOSE: Intact. No lesions. MOUTH: Clear. No discharge. THROAT: Clear. No exudate. LUNGS: Clear. No crackles. CARDIAC: S1, S2. No rub. ABDOMEN: Benign. Bowel sounds positive. GENITALIA/RECTUM: Pe[place] absent. BACK/EXTREMITIES: Edema 0+. NEUROLOGICAL: Alert and motor intact. LABORATORY DATA: Labs show hemoglobin 9.2. Creatinine 9.1. ASSESSMENT AND PLAN: 1. Stage 6 chronic kidney disease, plan dialysis. 2. Hyperkalemia, plan dialysis. 3. Anemia, stable. 4. Medications based on glomerular filtration rate are appropriate. Job ID: [id number]
--- NOTE | 2018-07-19 16:20 | CON ---
DATE OF CONSULTATION: 07/19/2018 TYPE OF REPORT: Neurological consultation. CONSULTING PHYSICIAN: [facility]. IMPRESSION: 1. Probable branch retinal artery occlusion. 2. Incidental findings of some punctate lacunar infarctions without symptomatology. 3. Diabetes. 4. Hypertension. PLAN: 1. Continue aspirin, Plavix, and simvastatin. 2. Carotid ultrasound. HISTORY OF PRESENT ILLNESS: Ms. Ness is a 53-year-old white female, who developed acute partial vision loss in the left eye three days ago. She did not seek medical attention right away. She subsequently found that the vision did not improve overnight, so she went to the emergency room. She was referred to Dr. Talavera for ophthalmologic evaluation. He advised her that there was some evidence of blood vessel occlusion. She was sent to the emergency room here for evaluation. She had an MRI of the brain done, which showed some punctate areas of acute ischemia involving the right subcortical region. There was evidence of prior chronic small-vessel ischemic changes as well. The acute ones were adjacent to the putamen. She denies any past history of focal neurologic symptoms. She had an echocardiogram, which showed a normal ejection fraction of 50% to 55%. PAST MEDICAL HISTORY: As listed above. ALLERGIES: IODINE. SOCIAL HISTORY: No tobacco use. FAMILY HISTORY: Noncontributory. MEDICATIONS: Medication list was reviewed. REVIEW OF SYSTEMS: No complaint of pain, nausea, vomiting, headache, slurred speech, lateralized weakness, or numbness. PHYSICAL EXAMINATION: GENERAL: She is overweight middle-aged woman, in no acute distress. VITAL SIGNS: Blood pressure 144/69, pulse 63, respirations 16, temperature 98.2. HEENT: Pupils are equal. Conjunctivae are clear. Cranium, normocephalic and atraumatic. NECK: Supple. EXTREMITIES: No cyanosis. NEUROLOGIC: She is alert and appropriate. Her speech is fluent and clear. Cranial nerve exam was only notable for left medial homonymous visual field deficit. Motor exam showed symmetric strength. She could walk independently without any difficulty. Sensation was intact bilaterally. There is no tremor or dysmetria present. SUMMARY: The patient appears to have vision loss secondary to retinal ischemia. Her MRI findings are incidental and asymptomatic. Given her risk factors, I would proceed with ongoing stroke prevention. PLAN: She can follow up with Ophthalmology. Job ID: [id number]
[2018-07-19] MEDS ORDERED: Midodrine HCl 5 MG TAB PO SCH (17:00)
[2018-07-20] MEDS ORDERED: Midodrine HCl 5 MG TAB PO SCH (09:00)
--- NOTE | 2018-07-22 01:34 | DIS ---
DATE OF ADMISSION: 07/16/2018 DATE OF DISCHARGE: 07/19/2018 ADMITTING ATTENDING: Adrian Velasquez MD DISCHARGE ATTENDING: Dr. Quarles. CONSULTS: 1. Neurology, Kuldip Cabrera MD. 2. Nephrology, Marlon Mullen MD. 3. Stroke team. PROCEDURES: On 07/16/2018, brain CT. 1. Impression: No CT evidence of acute intracranial process. On 07/18/2018, brain MRI. 1. Impression: Findings suggest two punctate foci of right-sided acute infarction as detailed above. Evidence of small-vessel disease. No intracranial hemorrhage appreciated. On 07/19/2018, carotid Doppler study. 1. Impression: No evidence of hemodynamically significant stenosis of either internal carotid artery. PRIMARY DIAGNOSES: 1. Left retinal artery occlusion. 2. Acute ischemic stroke. SECONDARY DIAGNOSES: 1. Congestive heart failure. 2. Type 2 diabetes. 3. Hyperlipidemia. 4. End-stage renal disease, on dialysis Friday, Friday, and Friday. 5. Hypertension. DISCHARGE MEDICATIONS: 1. Midodrine 10 mg p.o. as dir resumed at home. 2. Sevelamer carbonate 6 tabs p.o. t.i.d., 800 mg. 3. Pantoprazole 40 mg p.o. daily. 4. Vitamin D 1000 units p.o. daily. 5. Aspirin 81 mg p.o. daily. 6. Metoprolol tartrate 12.5 mg p.o. b.i.d. 7. Clopidogrel bisulfate 75 mg p.o. daily. 8. Simvastatin 10 mg p.o. at bedtime. 9. Coenzyme Q10 50 mg p.o. daily. DISCONTINUED MEDICATIONS: None. HISTORY OF PRESENT ILLNESS AND HOSPITAL COURSE: This is a 53-year-old female with medical history of end-stage renal disease, on dialysis, who presented with acute onset of left eye blindness. On presentation, head CT was done and the patient showed no evidence of stroke and was reporting no other neurologic symptoms at that time. Ophthalmology was called to recommend outpatient management of her symptoms and that she likely had a retinal artery occlusion; however, the patient was already admitted and had plans for dialysis the next day. On recommendations of Radiology, MRI brain and orbit were accomplished, which showed no new findings for her retinal pathology. However, they did have incidental finding of two punctate ischemic strokes in the right parietotemporal region of her brain, Neurology was thus consulted as was the stroke team who recommended adding clopidogrel on to home aspirin regimen and the patient was restarted on a low dose of statin with coenzyme Q10 as she had stopped with her renal failure and was unable to tolerate it in the past with myalgia. However, the patient desired to try statin once again considering the potential benefit and risk reduction of stroke. The patient was deemed stable for discharge and was discharged with plans for outpatient followup with Neurology and with primary care physician. DISPOSITION: Stable. DISCHARGE INSTRUCTIONS: LOCATION: Home. DIET: Renal diet. ACTIVITY: As tolerated. FOLLOWUP: Follow up with Dr. Lugo in 7 days, with Dr. Cabrera in 14 days, with Dr. Eng in 14 days, and with Dr. Mullen in 10 days. Job ID: [id number]
== END 2018-07-19 15:29 | disposition home or self-care (01) | DRG 64 ==
LOC: ERS 14:59 → 2SE 17:32
PROVIDERS: ADMIT Student in an Organized Health Care Education/Training Program; ATTEND Student in an Organized Health Care Education/Training Program
DX: I63.9 Cerebral infarction, unspecified (principal); N18.6 End stage renal disease; I13.2 Hypertensive heart and chronic kidney disease with heart failure and with stage 5 chronic kidney disease, or end stage renal disease; N17.9 Acute kidney failure, unspecified; E13.22 Other specified diabetes mellitus with diabetic chronic kidney disease; I50.9 Heart failure, unspecified; Z99.2 Dependence on renal dialysis; D63.1 Anemia in chronic kidney disease; E78.00 Pure hypercholesterolemia, unspecified
CPT/HCPCS: 36415; 36416; 70450; 70551; 80048; 80053; 82550; 82553; 84484; 85025; 85610; 85652; 85730; 86038; 86160; 86225; 90935; 93005; 93010; 93306; 93880; G0257; G8978-GP-CH; G8979-GP-CH; G8980-GP-CH; G8996-GN-CH; G8997-GN-CH; J1644

== ENCOUNTER 2018-11-03 09:09 | Outpatient (CLI) | payer MEDICARE, MEDICAID ==
--- NOTE | 2018-11-03 11:15 | ULT ---
FOCUSED ULTRASOUND LEFT BREAST: Date: 11-03-18 Comparison: None. History: 53-year-old female who reports a new palpable abnormality within the left breast at the 12 o 'clock position. The patient reports a history of easy bruising and is currently on aspirin and Plavi x. FINDINGS: Focused ultrasound in the area of palpable concern is obtained. At the 12 o'clock position of the left breast approximately 6 cm from the nipple is a superficial les ion which is centered within the fat just beneath the skin surface. It demonstrates angulated margins with a projection which abuts the undersurface of the skin. This lesion has angulated margins and is heterogeneously hypoechoic centrally, with subtle increased through transmission. The surrounding fa t is hypoechoic. This angulated hypoechoic lesion measures up to approximately 1.4 x 0.6 x 0.8 cm. No abnormal shadowing or internal blood flow. IMPRESSION: BIRADS 3 - probably benign findings. Given the appearance of this lesion sonographically and the fact that the patient reports easy bruising and is currently on aspirin and Plavix, the leading considera tion is for a small hematoma. However, a solid mass on the basis of malignancy cannot be excluded on the basis of this exam. Recommend short term follow up sonogram of the left breast in 3-4 weeks. If t his abnormality persists or enlarges, then an ultrasound guided biopsy would be recommended. The findings and the recommendation for a short term follow up ultrasound with possible biopsy to fol low discussed with the patient at 10:30 a.m. 11-03-18. Findings also discussed via phone with Dr. Katy quintanilla on 11/03/2018. POS: OFF
--- NOTE | 2018-11-03 12:09 | MMO ---
Bilateral MAMMO Bilat Diag [facility]DI+TARIK. CLINICAL HISTORY: Patient is 53 years old and is seen for diagnostic exam and palpable abnormality in the left breast. The patient has no family history of breast cancer. The patient has no personal history of cancer. VIEWS: The views performed were: bilateral craniocaudal with tomosynthesis; bilateral mediolateral oblique with tomosynthesis; and bilateral mediolateral. FILMS COMPARED: The present examination has been compared to prior imaging studies performed at [facility] on 03/01/2011, 11/21/2011, 12/15/2012, 05/01/2017 and 11/03/2018. MAMMOGRAM FINDINGS: There are scattered fibroglandular densities. There is a new mass seen in the left breast. In the area of concern on the left there is a new mass with irregular margins measuring 1.4cm. This mass is oval and demonstrates no associated calcifications. Ultrasound assessment demonstrates a nonspecific angulated hypoechoic superficial lesion with surrounding increased echogenicity. This could represent a complex fluid collection such as hematoma, especially given the patient's history of anticoagulation. Recommend short term follow up ultrasound in 3-4 weeks. If this lesion persists, biopsy advised. This plan was discussed with the patient as well as Dr. Lugo at the time of interpretation. In the right breast, there are no suspicious masses, calcifications or areas of architectural distortion. IMPRESSION: NEW MASS IN THE LEFT BREAST IS PROBABLY BENIGN. FOLLOW-UP IN 1 MONTH IS RECOMMENDED. 3BTHE RESULTS OF THIS EXAM WERE SENT TO THE PATIENT.0B ACR BI-RADS Category 3 - Probably benign finding - short interval follow-up suggested. [facility] will notify the patient of the need for additional imaging services. A follow up focused ultrasound of the left breast is recommended in one month as detailed above. MAMMOGRAPHY NOTE: 1. A negative mammogram report should not delay a biopsy if a dominant of clinically suspicious mass is present. 2. Approximately 10% to 15% of breast cancers are not detected by mammography. 3. Adenosis and dense breasts may obscure an underlying neoplasm.
== END 2018-11-03 09:10 | disposition home or self-care (01) ==
LOC: BICMAMMO 09:09
PROVIDERS: ATTEND Family Medicine
DX: N63.22 Unspecified lump in the left breast, upper inner quadrant (principal)
CPT/HCPCS: 76642; 77066; G0279

== ENCOUNTER 2019-04-26 11:57 | Emergency (ER) | payer MEDICARE, MEDICAID ==
[2019-04-26 12:56] LABS: #Eosinphils 0.1 thou/uL (0.0-0.7); #Lymphocytes 0.7 thou/uL (1.20-3.40); #Monocytes 0.4 thou/uL (0.11-0.59); #Neutrophils 6.8 thou/uL (1.40-6.50); %Basophils 0.4 % (0.0-1.0); %Eosinophils 1.2 % (0.0-10.0); %Lymphocytes 8.3 % (21.0-51.0); %Monocytes 4.4 % (0.0-10.0); %Neutrophils 85.7 % (42.0-75.0); Hemoglobin 8.9 g/dL (12.0-16.0); Mean Corpuscular HGB CONC 33.8 g/dL (32.0-36.0); Mean Corpuscular Hemoglobin 30.1 pg (27.0-31.0); Mean Corpuscular Volume 88.9 fL (78.0-98.0); Mean Platelet Volume 8.4 fL (7.4-10.4); Platelet Count 165 thou/uL (130-400); RBC Distribution Width 13.4 % (11.5-14.5); Red Blood Cell (RBC) Count 2.97 mill/uL (4.20-5.40); White Blood Cell (WBC) Count 7.9 thou/uL (4.8-10.8)
[2019-04-26 13:21] LABS: ALT (SGPT) 7 U/L (8-55); AST (SGOT) 9 U/L (5-34); Albumin 3.9 g/dL (3.5-5.0); Alkaline Phosphatase 246 U/L (40-110); Anion Gap 22 mmol/L (10-20); BUN (Urea Nitrogen) 53 mg/dL (9.8-20.1); Bilirubin, Total 0.5 mg/dL (0.2-1.2); Calc. Creatinine Clearance 0 mL/min (70-130); Calcium 8.1 mg/dL (7.8-10.44); Carbon Dioxide 20 mmol/L (22-29); Chloride 97 mmol/L (98-107); Estimated GFR-MDRD 2; Globulin 3.3 g/dL (2.4-3.5); Glucose 92 mg/dL (70-105); Lipase 36 U/L (8-78); Potassium 5.3 mmol/L (3.5-5.1); Protein, Total 7.2 g/dL (6.0-8.3); Sodium 134 mmol/L (136-145)
[2019-04-26] MEDS ORDERED: Morphine 4 MG/ML VIAL ONE (14:23)
[2019-04-26] MEDS ORDERED: Ondansetron PF 4 MG/2 ML Vial ONE ×2 (14:23→22:07)
[2019-04-26] MEDS ORDERED: Pantoprazole 40 MG VIAL ONE (14:23)
--- NOTE | 2019-04-26 14:45 | CT ---
EXAM: ABDOMEN AND PELVIC CT SCAN WITHOUT CONTRAST: HISTORY: Nausea and diarrhea. COMPARISON: None. FINDINGS: Bilateral pleural fluid is partially visualized. Generalized groundglass alveolar opacity of the lung bases. There is also pericardial fluid. Liver: Unremarkable. Gallbladder: Large, rim calcified gallstone is present. Pancreas: Unremarkable. Spleen: Enlarged spleen, greater than 17 cm in length. Adrenal glands: Unremarkable. Kidneys: Prominent atrophy of each kidney. There are bilateral exophytic renal densities, incompletel y evaluated by noncontrast technique. Bowel: No bowel obstruction. There is submucosal fat deposition of the colon which can be seen in the setting of prior inflammation. Correlate clinically. Urinary Bladder: Decompressed and unopacified, limiting assessment. Adenopathy: No adenopathy within the abdomen or pelvis. Free Air: No free air. Scattered vascular disease. Ascites: Mild free fluid of the pelvis, nonspecific. Osseous structures: Diffuse abnormal increased density which may relate to renal osteodystrophy, give n the associated renal findings. IMPRESSION: 1. Large, rim calcified gallstone. 2. Incidental note of pleural fluid and probable pulmonary edema. Pericardial fluid is also partiall y visualized. 3. Prominent renal atrophy with bilateral renal exophytic densities incompletely assessed. Density within the left kidney is greater than typical Hounsfield units for a cyst. Recommend follow-up with renal ultrasound. 4. Diffuse abnormal sclerosis of the osseous structures, favoring renal osteodystrophy in light of t he concomitant findings. Correlate with patient's history. 5. Mild pelvic ascites. Nonspecific. Correlate clinically. Transcribed Date/Time: 04/26/2019 2:54 PM
== END 2019-04-26 22:30 | disposition home or self-care (01) ==
LOC: ERS 11:57
DX: R19.7 Diarrhea, unspecified (principal); N18.6 End stage renal disease; I11.0 Hypertensive heart disease with heart failure; I50.9 Heart failure, unspecified; E11.9 Type 2 diabetes mellitus without complications; E78.5 Hyperlipidemia, unspecified; E78.00 Pure hypercholesterolemia, unspecified; Z99.2 Dependence on renal dialysis; Z79.899 Other long term (current) drug therapy
CPT/HCPCS: 36415; 74176; 80053; 82274; 83690; 85025; 93005; 96361; 96374; 96375; 96376; C9113; J2270; J2405

== ENCOUNTER 2019-05-12 09:10 | Emergency (ER) | payer MEDICARE, MEDICAID ==
[2019-05-12 10:08] LABS: #Eosinphils 0.1 thou/uL (0.0-0.7); #Lymphocytes 0.7 thou/uL (1.20-3.40); #Monocytes 0.3 thou/uL (0.11-0.59); #Neutrophils 2.9 thou/uL (1.40-6.50); %Eosinophils 2.1 % (0.0-10.0); %Lymphocytes 17.4 % (21.0-51.0); %Monocytes 7.1 % (0.0-10.0); %Neutrophils 73.4 % (42.0-75.0); Hemoglobin 7.5 g/dL (12.0-16.0); Mean Corpuscular HGB CONC 32.6 g/dL (32.0-36.0); Mean Corpuscular Hemoglobin 29.7 pg (27.0-31.0); Mean Corpuscular Volume 91.4 fL (78.0-98.0); Mean Platelet Volume 8.2 fL (7.4-10.4); Platelet Count 159 thou/uL (130-400); RBC Distribution Width 13.3 % (11.5-14.5); Red Blood Cell (RBC) Count 2.52 mill/uL (4.20-5.40)
[2019-05-12 10:26] LABS: ALT (SGPT) Less than 7 U/L (8-55); AST (SGOT) 12 U/L (5-34); Albumin 3.7 g/dL (3.5-5.0); Alkaline Phosphatase 310 U/L (40-110); Anion Gap 15 mmol/L (10-20); BUN (Urea Nitrogen) 10 mg/dL (9.8-20.1); Bilirubin, Total 0.7 mg/dL (0.2-1.2); Calc. Creatinine Clearance 0 mL/min (70-130); Calcium 8.1 mg/dL (7.8-10.44); Carbon Dioxide 29 mmol/L (22-29); Chloride 96 mmol/L (98-107); Estimated GFR-MDRD 11; Globulin 3.2 g/dL (2.4-3.5); Glucose 92 mg/dL (70-105); Potassium 3.4 mmol/L (3.5-5.1); Protein, Total 6.9 g/dL (6.0-8.3); Sodium 137 mmol/L (136-145)
--- NOTE | 2019-05-15 13:56 | EKG ---
Test Reason : Blood Pressure : / mmHG Vent. Rate : 084 BPM Atrial Rate : 084 BPM P-R Int : 182 ms QRS Dur : 090 ms QT Int : 456 ms P-R-T Axes : 031 000 044 degrees QTc Int : 538 ms Sinus rhythm with frequent Premature ventricular complexes in a pattern of bigeminy Nonspecific ST and T wave abnormality Prolonged QT Abnormal ECG Confirmed by AMBER BECERRIL, SUNIL Lane ([id number]), acquisitions editor ELMER HERR ([id number]) on 05/15/2019 1:55:58 PM Referred By: Confirmed By:SUNIL CLARK MD
== END 2019-05-12 17:28 | disposition home or self-care (01) ==
LOC: ERS 09:10
DX: D64.9 Anemia, unspecified (principal); I11.0 Hypertensive heart disease with heart failure; I50.9 Heart failure, unspecified; E11.9 Type 2 diabetes mellitus without complications; E78.5 Hyperlipidemia, unspecified; E78.00 Pure hypercholesterolemia, unspecified; I48.91 Unspecified atrial fibrillation; Z79.899 Other long term (current) drug therapy
CPT/HCPCS: 36430; 80053; 83880; 85025; 86850; 86900; 86901; 86920; 93005; 99284; P9016; 90935; G0257

== ENCOUNTER 2019-05-15 10:14 | Observation (INO) | payer MEDICARE, MEDICAID ==
[2019-05-15] MEDS ORDERED: Ondansetron PF 4 MG/2 ML Vial ONE (10:51)
[2019-05-15 10:53] LABS: #Eosinphils 0.1 thou/uL (0.0-0.7); #Lymphocytes 0.9 thou/uL (1.20-3.40); #Monocytes 0.3 thou/uL (0.11-0.59); #Neutrophils 3.7 thou/uL (1.40-6.50); %Basophils 0.4 % (0.0-1.0); %Eosinophils 2.8 % (0.0-10.0); %Lymphocytes 17.1 % (21.0-51.0); %Monocytes 5.2 % (0.0-10.0); %Neutrophils 74.5 % (42.0-75.0); Hemoglobin 8.3 g/dL (12.0-16.0); Mean Corpuscular HGB CONC 33.3 g/dL (32.0-36.0); Mean Corpuscular Hemoglobin 30.5 pg (27.0-31.0); Mean Corpuscular Volume 91.6 fL (78.0-98.0); Mean Platelet Volume 8.2 fL (7.4-10.4); Platelet Count 192 thou/uL (130-400); RBC Distribution Width 13.3 % (11.5-14.5); Red Blood Cell (RBC) Count 2.71 mill/uL (4.20-5.40)
[2019-05-15 11:16] LABS: ALT (SGPT) Less than 7 U/L (8-55); AST (SGOT) 14 U/L (5-34); Albumin 3.8 g/dL (3.5-5.0); Alkaline Phosphatase 304 U/L (40-110); Anion Gap 19 mmol/L (10-20); BUN (Urea Nitrogen) 28 mg/dL (9.8-20.1); Bilirubin, Total 0.8 mg/dL (0.2-1.2); Calc. Creatinine Clearance 0 mL/min (70-130); Calcium 7.1 mg/dL (7.8-10.44); Carbon Dioxide 23 mmol/L (22-29); Chloride 99 mmol/L (98-107); Estimated GFR-MDRD 4; Globulin 2.7 g/dL (2.4-3.5); Glucose 87 mg/dL (70-105); Lipase 49 U/L (8-78); Magnesium 2.2 mg/dL (1.6-2.6); Phosphorus 4.1 mg/dL (2.3-4.7); Potassium 4.6 mmol/L (3.5-5.1); Protein, Total 6.5 g/dL (6.0-8.3); Sodium 136 mmol/L (136-145)
--- NOTE | 2019-05-15 11:28 | RAD ---
RADIOGRAPH CHEST 1 VIEW: DATE: 05/15/2019 HISTORY: 53-year-old female with chest pain, chest fluttering, and dyspnea. FINDINGS: There is cardiomegaly. There is no evidence of airspace density, pulmonary edema, or pneumothorax. Th e lateral costophrenic angles are not effaced. Mild engorgement of pulmonary vasculature. IMPRESSION: 1) No acute pulmonary findings. 2) cardiomegaly and mild pulmonary venous congestion without shawna pulmonary edema.
[2019-05-15 11:38] LABS: CKMB 0.4 ng/mL (0-6.6)
[2019-05-15] MEDS ORDERED: Nitroglycerin 2% Ointment 1 INCH/1 GM Packet ONE (13:15)
[2019-05-15] MEDS ORDERED: Aspirin Chewable 81 MG TAB ONE (13:15)
--- NOTE | 2019-05-15 13:35 | PDOC.FPRHP ---
- History of Present Illness Chief Complaint: Fatigue, Chest Discomfort History of Present Illness: Pt is a 53 yo female w/ PMH stroke 2017, CHF, DMII, HLD, ESRD, HTN who presents with generalized fatigue for 2 weeks and chest comfort over the previous 24-48 hours. She states she has not been feeling herself since being discharged from [facility] for atrial fibrillation and discharged in NSR on diltiazem 180 daily. Most recently she went for dialysis on Friday and found to have a low hgb requiring a transfusion. Over the last 24-48 hours she endorsed some chest discomfort when she appreciates "fluttering heart" and becomes short of breath. She did not have any chest pain on exam although she had a nitro patch in place. Pt also complained of diarrhea multiple times per day. She has history of positive c-diff w/o treatment. In the ED she was found to have indeterminate troponins x 2, EKG NSR, CXR WNL. Nitro patch placed. Lipase 49. Of note alk phos 304. Hgb 8.3. - Allergies/Adverse Reactions Allergies Allergy/AdvReac Type Severity Reaction Status Date / Time iodine Allergy Verified 05/15/19 15:13 - Home Medications Medication Instructions Recorded Confirmed Type Cholecalciferol (Vitamin D3) 1,000 units PO DAILY 07/16/18 05/15/19 History [Vitamin D] Midodrine HCl 10 mg PO ASDIR PRN 07/16/18 05/15/19 History Pantoprazole [Protonix] 40 mg PO DAILY 07/16/18 05/15/19 History Sevelamer Carbonate [Renvela] 6 tab PO TID-WM 07/16/18 05/15/19 History Aspirin [Ecotrin Low Strength] 81 mg PO DAILY #30 tab 07/18/18 05/15/19 Rx Ubidecarenone [Coenzyme Q10] 50 mg PO DAILY 30 Days #30 cap 07/19/18 05/15/19 Rx Diltiazem HCl [Cardizem CD] 180 mg PO 0800 05/15/19 05/15/19 History hydrALAZINE [Apresoline] 25 mg PO TID 05/15/19 05/15/19 History - History PMHx: paroxysmal a-fib, stroke 2017 w/ L eye blindness, CHF, DMII, HLD, ESRD w/ M/W/F dialysis, HTN PSHx: Hysterectomy FHx: Mother - COPD Social: denies smoking, stopped in 2008. Denies alcohol, drugs. lives with - Review of Systems General: reports: fatigue. denies: fever/chills, weight/appetite/sleep changes Eyes: denies: eye pain, vision changes ENT: denies: nasal congestion, rhinorrhea Respiratory: denies: cough, congestion, shortness of breath Cardiovascular: reports: chest pain, palpitation, edema. denies: paroxysmal nocturnal dyspnea Gastrointestinal: reports: diarrhea. denies: nausea, vomiting, constipation, GI bleeding Genitourinary: denies: incontinence, dysuria, polyuria Skin: denies: rashes, lesions, jaundice Musculoskeletal: denies: pain, tenderness Neurological: denies: numbness, syncope, seizure - Vital signs BP: [129/64] HR: [71] RR: [16] Tmax: [98.2] Pox: [96]% on [RA] Wt: [94.8 kg] - Physical Exam Constitutional: NAD, awake, alert and oriented Neck: FROM, trachea midline Heart: RRR, normal S1/S2 -Heart: trace LE edema Lungs: CTAB, no respiratory distress, good air movement, no wheezing Abdomen: soft, non-tender, bowel sounds present Musculoskeletal: normal structure, ROM grossly normal Neurological: no focal deficit, CN II-XII intact Skin: no rash/lesions, capillary refill <2 seconds Heme/Lymphatic: no purpura, no petechia Psychiatric: normal mood and affect, good judgment and insight FMR H&P: Results - Labs Result Diagrams: 05/15/19 10:39 05/15/19 10:39 Lab results: WBC 5.0 thou/uL (4.8-10.8) 05/15/19 10:39 Hgb 8.3 g/dL (12.0-16.0) L 05/15/19 10:39 Hct 24.8 % (36.0-47.0) L 05/15/19 10:39 MCV 91.6 fL (78.0-98.0) 05/15/19 10:39 Plt Count 192 thou/uL (130-400) 05/15/19 10:39 Neutrophils % 74.5 % (42.0-75.0) 05/15/19 10:39 Sodium 136 mmol/L (136-145) 05/15/19 10:39 Potassium 4.6 mmol/L (3.5-5.1) 05/15/19 10:39 Chloride 99 mmol/L (98-107) 05/15/19 10:39 Carbon Dioxide 23 mmol/L (22-29) 05/15/19 10:39 BUN 28 mg/dL (9.8-20.1) H 05/15/19 10:39 Creatinine 9.91 mg/dL (0.6-1.1) H 05/15/19 10:39 Glucose 87 mg/dL (70-105) 05/15/19 10:39 Calcium 7.1 mg/dL (7.8-10.44) L 05/15/19 10:39 Total Bilirubin 0.8 mg/dL (0.2-1.2) 05/15/19 10:39 AST 14 U/L (5-34) 05/15/19 10:39 ALT Less than 7 U/L (8-55) L 05/15/19 10:39 Alkaline Phosphatase 304 U/L (40-110) H 05/15/19 10:39 CK-MB (CK-2) 0.4 ng/mL (0-6.6) 05/15/19 10:39 Serum Total Protein 6.5 g/dL (6.0-8.3) 05/15/19 10:39 Albumin 3.8 g/dL (3.5-5.0) 05/15/19 10:39 Lipase 49 U/L (8-78) 05/15/19 10:39 - EKG Interpretation EKG: NSR - Radiology Interpretation Chest x-ray Status: report reviewed by me (No acute changes) FMR H&P: A/P - Problem List (1) CHF (congestive heart failure) Current Visit: No Status: Acute Code(s): I50.9 - HEART FAILURE, UNSPECIFIED (2) ESRD (end stage renal disease) on dialysis Current Visit: No Status: Acute Code(s): N18.6 - END STAGE RENAL DISEASE; Z99.2 - DEPENDENCE ON RENAL DIALYSIS (3) Elevated troponin Current Visit: No Status: Acute Code(s): R74.8 - ABNORMAL LEVELS OF OTHER SERUM ENZYMES (4) HLD (hyperlipidemia) Current Visit: No Status: Acute Code(s): E78.5 - HYPERLIPIDEMIA, UNSPECIFIED (5) HTN (hypertension) Current Visit: No Status: Acute Code(s): I10 - ESSENTIAL (PRIMARY) HYPERTENSION (6) Type 2 diabetes mellitus Current Visit: No Status: Acute (7) Vision loss of left eye Current Visit: No Status: Acute Code(s): H54.62 - UNQUALIFIED VISUAL LOSS, LEFT EYE, NORMAL VISION RIGHT EYE - Plan Pt is a 53 yo female with PMH paroxysmal a-fib, stroke 2018 w/ L eye blindness, CHG, DMII, HLD, ESRD w/ M/W/F dialysis, HTN who presents for 2 weeks of generalized fatigue after new onset paroxysmal a-fib, anemia, chest discomfort, palpitations, hx of c-diff. # Generalized Fatigue C-Diff vs Paroxysmal A-fib vs Anemia # C-Diff - c-diff assay pending - start vanc if positive # Paroxysmal A-Fib - admit to tele, NSR on EKG - discuss anticoag with pt and cards follow up - continued dilt # Anemia - s/p 1 uprbc this week - monitor # Chest Discomfort - relieved with nitro, appears it occurs when she feels her chest flutter and becomes SOB. Possibly secondary to a-fib vs CAD. Pt does have risk factors for CAD but trops indeterminate at this time. Pt NPO at midnight for possible stress in am. # Indeterminate Trops - elevated, possibly secondary to ESRD vs ACS # Alk Phos Elevation - monitor, possibly elevated if pt has C-diff # Systolic Murmur Known history per pt. Can consider echocardiogram. Previous echo revealed sclerotic aortic valve, mild mitral valve regurg. # DM II - monitor BG, pt takes no home meds # HLD - statin therapy # ESRD MWF dialysis, consult Nephro if pt stays until Friday # GERD - protonix Diet: NPO Midnight Fluids: None VTE Prophylaxis: lovenox Code: Full Dispo: Likely < 2 midnight stay FMR H&P: Upper Level - Plan Date/Time: 05/15/19 1334 [id number], have evaluated this patient and agree with findings/ plan as outlined by public health internship resident. Pertinent changes/additions are listed here. 53yo F with pmh of ESRD on HD (MWF) and afib presents for malaise for several days with some intermittent chest discomforts x2 weeks. She is currently not having chest discomfort. Workup in ED was not concerning for ACS but was consistent with ESRD labs. EKG non concerning. CXR NAF. Of note she did have some positive labwork for C.Diff in ED a couple of weeks ago and it is unclear if it was ever treated. Pt is not sure if she took medication for this. Overall for her atypical chest pain we will admit for observation and trending of cardiac enzymes. Will discuss the possibility of stress test with the pt. Otherwise her malaise can certainly be attributed to c.diff infection. Will repeat her c.diff labs and treat accordingly. Otherwise chronic problems will be managed per the public health internship note above. Addendum - Attending - Attending Attestation Date/Time: 05/15/19 [id number] I personally evaluated the patient and discussed the management with Dr. Buck /Cedric. I agree with the History, Examination, Assessment and Plan documented above with any addition or exceptions noted below. Patient is 53-year-old female with end stage renal disease on hemodialysis and new diagnosis of atrial fibrillation who presents to the ED with several days of generalized malaise. Patient reports weakness, nausea, diarrhea over the last few days. Reports recent hospitalization in [place] for new onset a fib for which she was discharged on diltiazem therapy. Patient has fairly benign exam. Lab work is overall stable from previous hospitalizations. She does have findings on lab work consistent with end stage renal disease. I note on April 29 that she had a clostridium difficile test positive for antigen and toxin. I am uncertain if shes been treated for this. Patient will be admitted to tele obs. Trend cardiac enzymes though I do not have high suspicion for ACS at this time. It is possible that her presentation is a continuation of Cdiff colitis unless we can figure out that she has been treated for this. Further management per those findings and plan to repeat Cdiff testing. Anticipate 1 to 2 days hospitalization.
[2019-05-15 14:12] LABS: Troponin I 0.052 ng/mL (< 0.028)
[2019-05-15 14:42] VITALS: BMI 39.4
[2019-05-15] MEDS ORDERED: Ondansetron ODT 4 MG TAB SL PRN (15:01)
[2019-05-15] MEDS ORDERED: Ondansetron PF 4 MG/2 ML Vial IVP PRN (15:01)
[2019-05-15 15:15] LABS: HBSAg Index 0.13 S/CO (0-0.99); Hep B Surf Ag Non-Reactive S/CO (NonReactive)
[2019-05-15] MEDS ORDERED: Dextrose 50% Abboject 50 ML SYRINGE SLOW IVP PRN (18:13)
[2019-05-15] MEDS ORDERED: HumaLOG 300 UNITS/3 ML VIAL SC PRN (18:13)
[2019-05-15] MEDS ORDERED: Dextrose 5% in Water 1,000 ML IV PRN (18:13)
[2019-05-15] MEDS: Sevelamer Carbonate 800 MG TAB PO SCH (18:16)
[2019-05-15 19:16] LABS: Hemoglobin A1c 4.9 % (4.0-6.0)
[2019-05-15 19:35] LABS: Troponin I 0.069 ng/mL (< 0.028)
[2019-05-15] MEDS ORDERED: Acetaminophen 650 MG/20.3 ML UDCUP PO PRN (20:46)
[2019-05-15] MEDS ORDERED: Simvastatin 5 MG TAB PO SCH (21:00)
[2019-05-15 23:02] LABS: CKMB 0.6 ng/mL (0-6.6)
--- NOTE | 2019-05-16 06:14 | PDOC.FM ---
- Subjective Subjective: Pt continues with diarrhea, Nausea. She denies chest pain. She does not want a stress test. - Objective Vital Signs & Weight: Vital Signs (12 hours) Temp Pulse Resp BP Pulse Ox 05/16/19 03:52 97.6 F 66 16 176/88 H 93 L 05/15/19 23:00 97.9 F 75 16 164/73 H 93 L Weight Weight 94.801 kg I&O: 05/14/19 05/15/19 05/16/19 06:59 06:59 06:59 Intake Total 480 Balance 480 Result Diagrams: 05/15/19 10:39 05/15/19 10:39 Phys Exam - Physical Examination Constitutional: NAD HEENT: PERRLA, moist MMs Respiratory: no wheezing, no rales, no rhonchi, clear to auscultation bilateral Cardiovascular: RRR, no significant murmur Gastrointestinal: soft, non-tender, positive bowel sounds Musculoskeletal: no edema, pulses present Dx/Plan (1) CHF (congestive heart failure) Code(s): I50.9 - HEART FAILURE, UNSPECIFIED Status: Acute (2) ESRD (end stage renal disease) on dialysis Code(s): N18.6 - END STAGE RENAL DISEASE; Z99.2 - DEPENDENCE ON RENAL DIALYSIS Status: Acute (3) Elevated troponin Code(s): R74.8 - ABNORMAL LEVELS OF OTHER SERUM ENZYMES Status: Acute (4) HLD (hyperlipidemia) Code(s): E78.5 - HYPERLIPIDEMIA, UNSPECIFIED Status: Acute (5) HTN (hypertension) Code(s): I10 - ESSENTIAL (PRIMARY) HYPERTENSION Status: Acute (6) Type 2 diabetes mellitus Status: Acute (7) Vision loss of left eye Code(s): H54.62 - UNQUALIFIED VISUAL LOSS, LEFT EYE, NORMAL VISION RIGHT EYE Status: Acute - Plan Plan: Pt is a 53 yo female with PMH paroxysmal a-fib, stroke 2018 w/ L eye blindness, CHG, DMII, HLD, ESRD w/ M/W/F dialysis, HTN who presents for 2 weeks of generalized fatigue after new onset paroxysmal a-fib, anemia, chest discomfort, palpitations, hx of c-diff. # Generalized Fatigue C-Diff vs Paroxysmal A-fib vs Anemia # HTN - restart hydralazine # C-Diff - c-diff assay pending - start vanc # Paroxysmal A-Fib - admit to tele, NSR on EKG - discuss anticoag with pt and cards follow up - continued dilt # Anemia of Chronic Disease, ESRD and Infection - s/p 1 uprbc this week - monitor # Chest Discomfort - relieved with nitro, appears it occurs when she feels her chest flutter and becomes SOB. Possibly secondary to a-fib vs CAD. Pt does have risk factors for CAD but trops indeterminate at this time. Pt NPO at midnight for possible stress in am but will likely not perform this morning. # Indeterminate Trops - elevated, possibly secondary to ESRD vs ACS # Alk Phos Elevation - monitor, possibly elevated if pt has C-diff # Systolic Murmur Known history per pt. Can consider echocardiogram. Previous echo revealed sclerotic aortic valve, mild mitral valve regurg. # DM II - monitor BG, pt takes no home meds # HLD - statin therapy # ESRD MWF dialysis, consult Nephro if pt stays until Friday # GERD - protonix Diet: NPO Midnight Fluids: None VTE Prophylaxis: lovenox Code: Full Dispo: Likely < 2 midnight stay Addendum - Attending - Attending Attestation Date/Time: 05/16/19 [id number] I personally evaluated the patient and discussed the management with Dr. Buck. I agree with the History, Examination, Assessment and Plan documented above with any addition or exceptions noted below. Patient here for chest pain and generalized malaise/diarrhea. She had outpatient Cdiff test result positive and we are unsure if this has been treated. Will figure that out and start therapy if indicated. If she has completed therapy then this could be related to residual symptoms that will self resolve. She had HD yesterday and labs improved. Needs BP control.
[2019-05-16] MEDS ORDERED: Heparin 5,000 UNITS/ML VIAL SC SCH (09:00)
[2019-05-16] MEDS ORDERED: Ubidecarenone 50 MG CAP PO SCH (09:00)
[2019-05-16] MEDS ORDERED: Enoxaparin Sodium 30 MG/0.3 ML SYRINGE SC SCH (09:00)
[2019-05-16] MEDS ORDERED: Aspirin 81 mg Enteric Coated Tablet PO SCH (09:00)
[2019-05-16] MEDS: Sevelamer Carbonate 800 MG TAB PO SCH ×3 (09:31→17:15)
[2019-05-16] MEDS: hydrALAZINE 25 MG TAB PO SCH ×2 (09:32→15:42)
[2019-05-16] MEDS: Vancomycin HCl 25 MG/ML Oral PO SCH ×2 (09:32→15:42)
--- NOTE | 2019-05-16 09:37 | CON ---
DATE OF CONSULTATION: 05/16/2019 CONSULTING PHYSICIAN: Adrian Velasquez MD REASON FOR CONSULTATION: End-stage renal disease evaluation. REASON FOR ADMISSION: Chest discomfort. HISTORY OF PRESENT ILLNESS: This is a 53-year-old female with history of CHF, end-stage renal disease, and hypertension, came to the hospital for evaluation. The patient was seen under evaluation for diarrhea. The patient missed dialysis on Friday and due for dialysis today and got dialysis in the hospital. Feeling better today except for the diarrhea. PAST MEDICAL HISTORY: Positive for AFib, stroke, CHF, type 2 diabetes, and end-stage renal disease. PAST SURGICAL HISTORY: Hysterectomy, dialysis access placement. HOME MEDICATIONS: Reviewed include; 1. Vitamin D3. 2. Midodrine. 3. Protonix. 4. Aspirin. 5. . SOCIAL HISTORY: Denies smoking, alcohol, or illicit drug abuse. FAMILY HISTORY: Positive for COPD. REVIEW OF SYSTEMS: CONSTITUTIONAL: Negative for weight loss or gain, ability to conduct usual activities. SKIN: Negative for rash, itching. EYES: Negative for double vision, pain. ENT/MOUTH: Negative for nose bleeding, neck stiffness, pain, tenderness. CARDIOVASCULAR: Negative for palpitations, dyspnea on exertion, orthopnea. RESPIRATORY: Negative for shortness of breath, wheezing, cough, hemoptysis, fever or night sweats. GASTROINTESTINAL: Negative for poor appetite, abdominal pain, heartburn, nausea, vomiting, constipation, or diarrhea. GENITOURINARY: Negative for urgency, frequency, dysuria, nocturia. MUSCULOSKELETAL: Negative for pain, swelling. NEUROLOGIC/PSYCHIATRIC: Negative for anxiety, depression. ALLERGY/IMMUNOLOGIC: Negative for skin rash, bleeding tendency. PHYSICAL EXAMINATION: GENERAL: Reveals an obese female, in no apparent distress. VITAL SIGNS: Temperature 98.6, pulse 72, respiratory rate 16, and blood pressure 179/87. HEENT: Atraumatic, normocephalic. Oral mucosa moist. NECK: Supple. CARDIOVASCULAR: S1 and S2. Rate and rhythm are regular. RESPIRATORY: Clear. GASTROINTESTINAL: Abdomen is soft. MUSCULOSKELETAL: 1+ edema. DERMATOLOGIC: No skin rash. NEUROLOGIC: Alert and awake. PSYCHIATRIC: Mood and affect normal. LABORATORY DATA: Potassium 4.6, BUN is 28, and creatinine is . ASSESSMENT AND PLAN: 1. End-stage renal disease. Continue dialysis on Friday, Friday, and Friday. 2. Edema. 3. Hypertension. 4. Anemia. Plan to continue dialysis on Friday, Friday, and Friday. Thank you for the consult. We will follow. Job ID: [id number]
[2019-05-16 10:54] VITALS: TEMP 98.8
[2019-05-16 14:53] LABS: #Eosinphils 0.1 thou/uL (0.0-0.7); #Monocytes 0.3 thou/uL (0.11-0.59); #Neutrophils 2.8 thou/uL (1.40-6.50); %Lymphocytes 23.1 % (21.0-51.0); %Monocytes 7.6 % (0.0-10.0); %Neutrophils 66.2 % (42.0-75.0); Hemoglobin 8.5 g/dL (12.0-16.0); Mean Corpuscular HGB CONC 33.1 g/dL (32.0-36.0); Mean Corpuscular Hemoglobin 30.3 pg (27.0-31.0); Mean Corpuscular Volume 91.4 fL (78.0-98.0); Mean Platelet Volume 8.7 fL (7.4-10.4); Platelet Count 158 thou/uL (130-400); RBC Distribution Width 13.1 % (11.5-14.5); Red Blood Cell (RBC) Count 2.79 mill/uL (4.20-5.40); White Blood Cell (WBC) Count 4.2 thou/uL (4.8-10.8)
[2019-05-16 15:07] LABS: Anion Gap 16 mmol/L (10-20); BUN (Urea Nitrogen) 14 mg/dL (9.8-20.1); Calc. Creatinine Clearance 16 mL/min (70-130); Calcium 7.7 mg/dL (7.8-10.44); Carbon Dioxide 26 mmol/L (22-29); Cardiac Risk 4.5 (Less than 4.5); Chloride 100 mmol/L (98-107); Cholesterol 159 mg/dl (< 200 Desired); Estimated GFR-MDRD 7; Glucose 98 mg/dL (70-105); HDL Cholesterol 35 mg/dL (>60 Neg Risk); LDL Cholesterol, Calculated 94 mg/dL; Potassium 4.6 mmol/L (3.5-5.1); Sodium 137 mmol/L (136-145); Triglycerides 152 mg/dL (Less than 150)
[2019-05-16 15:43] VITALS: BP 153/72
[2019-05-16] MEDS ORDERED: Midodrine HCl 5 MG TAB PO PRN (21:00)
[2019-05-17] MEDS ORDERED: Midodrine HCl 5 MG TAB PO PRN (09:00)
--- NOTE | 2019-05-18 01:54 | DIS ---
DATE OF ADMISSION: 05/15/2019 DATE OF DISCHARGE: 05/16/2019 RESIDENT: Harish Buck DO DISCHARGE ATTENDING: Adrian Velasquez MD CONSULTS: None. PROCEDURES: None. DISCHARGE DIAGNOSES: 1. History of Clostridium difficile without treatment. 2. Paroxysmal atrial fibrillation. 3. Symptomatic anemia. 4. End-stage renal disease. SECONDARY DIAGNOSES: 1. Type 2 diabetes. 2. Hyperlipidemia. 3. Gastroesophageal reflux disease. DISCHARGE MEDICATIONS: 1. Midodrine 10 mg p.o. p.r.n. for hypotension. 2. Renvela 800 mg tab 6 tabs p.o. t.i.d. 3. Protonix 40 mg p.o. daily. 4. Vitamin D3 1000 units p.o. daily. 5. Aspirin 81 mg p.o. daily. 6. Coenzyme Q10 50 mg p.o. daily. 7. Hydralazine 25 mg p.o. t.i.d. 8. Simvastatin 10 mg p.o. at bedtime. 9. Vancomycin 125 mg p.o. q.6 hours x10 days. DISCONTINUED MEDICATIONS: None. HISTORY OF PRESENT ILLNESS/HOSPITAL COURSE: The patient is a 53-year-old female coming in for treatment of Clostridium difficile. Within the previous month, she was diagnosed with antibody and antigen in her stool, but the patient is unsure if she was adequately treated. So, we started the patient on vancomycin for first time episode, which is a 10-day course. The patient complained of diarrhea for 6 times over the previous month. She denies any fevers, chills, nausea, vomiting, abdominal pain at that time. The patient also came in with recent history of paroxysmal AFib, diagnosed at the [facility], for which she was started on diltiazem 180 mg b.i.d. She was not on anticoagulation, but was taking aspirin therapy. I discussed anticoagulation therapy with her. She said she did not want to be on it at this time. I recommended she follow up with her project reservoir engineer and further discuss this. She did say she has an appointment coming up in a couple of days. The patient also came in with a recent history of requiring 1 unit packed red blood cells secondary to anemia discovered while she was at dialysis. She was transfused with the 1 unit with mild improvement of her fatigue that she had been experiencing. She was discharged with a hemoglobin in the high 8s. This should be followed in the dialysis clinic. There was some complaint of chest discomfort per the patient, but this was not her main complaint. She does have multiple risk factors for coronary artery disease, but her presentation did not appear to be secondary to angina. She possibly also could have been switching into atrial fibrillation as she was just previously diagnosed 2 weeks ago. She did state she had a fluttering of her heart over the past 24 to 48 hours. There were no changes on her telemetry strip while she was in the hospital. DISPOSITION: Stable. DISCHARGE INSTRUCTIONS: 1. Location: [facility]. 2. Diet: No restrictions. 3. Activity: Ad kiersten. 4. Followup: a. Follow up with project reservoir engineer at her next appointment. b. Follow up with primary care provider within the next 2 weeks. Job ID: [id number]
== END 2019-05-16 17:50 | disposition home or self-care (01) ==
LOC: ERS 10:14 → 2SW 14:35
PROVIDERS: ADMIT Student in an Organized Health Care Education/Training Program; ATTEND Student in an Organized Health Care Education/Training Program
DX: A04.72 Enterocolitis due to Clostridium difficile, not specified as recurrent (principal); R53.83 Other fatigue; R07.89 Other chest pain; I13.2 Hypertensive heart and chronic kidney disease with heart failure and with stage 5 chronic kidney disease, or end stage renal disease; E11.22 Type 2 diabetes mellitus with diabetic chronic kidney disease; N18.6 End stage renal disease; I50.9 Heart failure, unspecified; I48.0 Paroxysmal atrial fibrillation; I69.398 Other sequelae of cerebral infarction; H54.62 Unqualified visual loss, left eye, normal vision right eye; R74.8 Abnormal levels of other serum enzymes; E78.5 Hyperlipidemia, unspecified; D63.1 Anemia in chronic kidney disease; K21.9 Gastro-esophageal reflux disease without esophagitis; Z87.891 Personal history of nicotine dependence; Z79.82 Long term (current) use of aspirin; Z79.899 Other long term (current) drug therapy; Z91.041 Radiographic dye allergy status; Z99.2 Dependence on renal dialysis
CPT/HCPCS: 71045; 80048; 80061; 82553; 82962 ×2; 83036; 83690; 83735; 84100; 84484 ×2; 85025; 87340; 93005; 96374; 99285; G0378 ×3; 36415; 36416; 80053; 84443; 90935; G0257; J2405

== ENCOUNTER 2019-05-22 07:19 | Emergency (ER) | payer MEDICARE, MEDICAID ==
[2019-05-22 08:24] LABS: #Eosinphils 0.1 thou/uL (0.0-0.7); #Lymphocytes 0.7 thou/uL (1.20-3.40); #Monocytes 0.3 thou/uL (0.11-0.59); #Neutrophils 2.7 thou/uL (1.40-6.50); %Basophils 0.2 % (0.0-1.0); %Lymphocytes 17.9 % (21.0-51.0); %Monocytes 6.7 % (0.0-10.0); %Neutrophils 72.2 % (42.0-75.0); Hemoglobin 8.3 g/dL (12.0-16.0); Mean Corpuscular Hemoglobin 30.5 pg (27.0-31.0); Mean Corpuscular Volume 92.3 fL (78.0-98.0); Mean Platelet Volume 8.8 fL (7.4-10.4); Platelet Count 178 thou/uL (130-400); RBC Distribution Width 13.3 % (11.5-14.5); Red Blood Cell (RBC) Count 2.71 mill/uL (4.20-5.40); White Blood Cell (WBC) Count 3.8 thou/uL (4.8-10.8)
--- NOTE | 2019-05-22 08:28 | RAD ---
Portable frontal chest radiograph: 05/22/2019 COMPARISON: 05/15/2019 HISTORY: Cough FINDINGS: Lungs are clear. Stable prominence of the cardiac silhouette. Mild pulmonary vascular conge stion. IMPRESSION: No focal consolidation or alveolar edema.
[2019-05-22 08:37] LABS: ALT (SGPT) 8 U/L (8-55); AST (SGOT) 16 U/L (5-34); Albumin 3.9 g/dL (3.5-5.0); Alkaline Phosphatase 309 U/L (40-110); Anion Gap 17 mmol/L (10-20); BUN (Urea Nitrogen) 19 mg/dL (9.8-20.1); Calc. Creatinine Clearance 0 mL/min (70-130); Calcium 8.4 mg/dL (7.8-10.44); Carbon Dioxide 29 mmol/L (22-29); Chloride 98 mmol/L (98-107); Estimated GFR-MDRD 5; Globulin 2.7 g/dL (2.4-3.5); Glucose 97 mg/dL (70-105); Potassium 4.2 mmol/L (3.5-5.1); Protein, Total 6.6 g/dL (6.0-8.3); Sodium 140 mmol/L (136-145)
[2019-05-22 09:00] LABS: CKMB 0.6 ng/mL (0-6.6)
[2019-05-22] MEDS ORDERED: Dexamethasone 10 MG/ML VIAL ONE (10:05)
== END 2019-05-22 10:05 | disposition home or self-care (01) ==
LOC: ERS 07:19
DX: I13.2 Hypertensive heart and chronic kidney disease with heart failure and with stage 5 chronic kidney disease, or end stage renal disease (principal); E11.22 Type 2 diabetes mellitus with diabetic chronic kidney disease; I50.9 Heart failure, unspecified; N18.6 End stage renal disease; R06.00 Dyspnea, unspecified; R05 Cough; E78.5 Hyperlipidemia, unspecified; E78.00 Pure hypercholesterolemia, unspecified; I48.91 Unspecified atrial fibrillation; Z87.891 Personal history of nicotine dependence; Z99.2 Dependence on renal dialysis; Z79.899 Other long term (current) drug therapy
CPT/HCPCS: 36415; 71045; 80053; 82553; 83880; 84484; 85025; 85379; 93005; 94640; J1100; J7620

== ENCOUNTER 2019-05-24 02:59 | Emergency (ER) | payer MEDICARE, MEDICAID ==
[2019-05-24 03:50] LABS: #Eosinphils 0.1 thou/uL (0.0-0.7); #Lymphocytes 0.8 thou/uL (1.20-3.40); #Monocytes 0.3 thou/uL (0.11-0.59); %Basophils 0.9 % (0.0-1.0); %Eosinophils 3.6 % (0.0-10.0); %Monocytes 8.2 % (0.0-10.0); %Neutrophils 62.3 % (42.0-75.0); Hemoglobin 7.5 g/dL (12.0-16.0); Mean Corpuscular HGB CONC 31.9 g/dL (32.0-36.0); Mean Corpuscular Hemoglobin 29.3 pg (27.0-31.0); Mean Corpuscular Volume 91.7 fL (78.0-98.0); Mean Platelet Volume 9.2 fL (7.4-10.4); Platelet Count 156 thou/uL (130-400); RBC Distribution Width 13.7 % (11.5-14.5); Red Blood Cell (RBC) Count 2.57 mill/uL (4.20-5.40); White Blood Cell (WBC) Count 3.2 thou/uL (4.8-10.8)
[2019-05-24 04:03] LABS: ALT (SGPT) 9 U/L (8-55); AST (SGOT) 14 U/L (5-34); Albumin 3.8 g/dL (3.5-5.0); Alkaline Phosphatase 269 U/L (40-110); Anion Gap 20 mmol/L (10-20); BUN (Urea Nitrogen) 35 mg/dL (9.8-20.1); Bilirubin, Total 0.7 mg/dL (0.2-1.2); Calc. Creatinine Clearance 0 mL/min (70-130); Calcium 8.5 mg/dL (7.8-10.44); Carbon Dioxide 25 mmol/L (22-29); Chloride 99 mmol/L (98-107); Estimated GFR-MDRD 3; Globulin 2.6 g/dL (2.4-3.5); Glucose 97 mg/dL (70-105); Potassium 4.1 mmol/L (3.5-5.1); Protein, Total 6.4 g/dL (6.0-8.3); Sodium 140 mmol/L (136-145)
[2019-05-24 04:23] LABS: CKMB 0.7 ng/mL (0-6.6)
--- NOTE | 2019-05-24 08:45 | CT ---
PRELIMINARY REPORT/[facility]/EMERGENCY AFTER HOURS PROCEDURE: PROCEDURE INFORMATION: Exam: CT Chest Without Contrast Exam date and time: 05/24/2019 4:11 AM Clinical history: 53 years old, female; Cough; Patient HX: F53 presents to ED for difficulty breathin g. PT was diagnosed on Friday with bronchitis, given zpak and reports she has taken as directed wit hout improvement. Denies chest pain or any pain at this time. Dialysis PT, last time on Friday, denie s complications. Hx- hbp, high cholesterol, afib, diabetes; No HX of blood clots TECHNIQUE: Imaging protocol: Computed tomography of the chest without contrast. COMPARISON: No relevant prior studies available. FINDINGS: Lungs: Interlobular septal thickening, pulmonary vascular engormenet and brochial wall thickening is compatible with interstitial pulmonary edema. No consolidation. No masses. Pleural space: No pneumothorax. Small to moderate layering bilateral pleural effusions. Heart: Global mild to moderate cardiomegaly. Small to moderate pericardial effusion. Mitral valve libertad cification is marked. Aorta: No aortic aneurysm. Dilated pulmonary artery is compatible with pulmonary hypertension. Lymph nodes: Mediastinal mildly prominent lymph nodes. Bones/joints: Findings suggestive of renal osteodystrophy. No acute fracture. Soft tissues: Unremarkable. IMPRESSION: Findings compatible with interstitial pulmonary edema. Small to moderate layering bilateral pleural effusions. Global mild to moderate cardiomegaly. Small to moderate pericardial effusion. Dilated pulmonary artery is compatible with pulmonary hypertension. Thank you for allowing us to participate in the care of your patient. Dictated and Authenticated by: Nicole Campos MD 05/24/2019 4:34 AM Central Time ([place] & [place]) FINAL REPORT EMERGENCY AFTER HOURS CT CHEST PERFORMED WITHOUT CONTRAST ENHANCEMENT: Date: 05/24/19 HISTORY: Difficulty breathing. FINDINGS: There is some mild ground-glass opacity of the lung tidwell which could indicate an element of edema. There are some moderate bilateral pleural effusions. No infiltrative process. The thoracic aorta is n ormal in caliber. Pulmonary artery is mildly dilated. It measures approximately 4.1 cm. There is a sm all pericardial effusion identified. Small mediastinal lymph nodes are probably reactive. Visualized liver parenchyma shows no focal findings. Spleen is only partially visualized, it appears slightly prominent. IMPRESSION: 1. Findings which would suggest possibly an element of edema. There is some ground-glass opacity of the lung tidwell and mild bilateral pleural effusions. 2. Tiny pericardial effusion and coronal artery calcification. 3. Findings that would suggest an element of pulmonary artery hypertension. 4. Bony findings that would suggest renal osteodystrophy. This report is in agreement with the preliminary report issued by [facility]. POS: OFF
--- NOTE | 2019-05-24 09:03 | RAD ---
CHEST TWO VIEWS: INDICATIONS: Short of breath. Cough. COMPARISON: 05/22/2019 FINDINGS: There is enlargement of the cardiac silhouette. Added density of the inferior right chest is present. Bilateral pulmonary interstitial opacities are present and there is enlargement of the pulmonary vas culature. IMPRESSION: Findings which favor congestive heart failure with associated edema and pleural fluid, more notable o n the right. Recommend followup to resolution. POS: [facility]
--- NOTE | 2019-05-25 12:48 | CON ---
DATE OF CONSULTATION: 05/24/2019 CONSULTING PHYSICIAN: Dr. Chiang. REASON FOR CONSULTATION: End-stage renal disease evaluation. REASON FOR ADMISSION: Shortness of breath. HISTORY OF PRESENT ILLNESS: A 53-year-old female, was seen at the dialysis after ER admission for shortness of breath. The patient is for dialysis on Friday, Friday, Friday, could not do dialysis today. The patient was having fluid overload ER doctor consulted me for arranging dialysis at the ER and plan is to discharge her home after dialysis is stable. PAST MEDICAL HISTORY: Positive for end-stage renal disease, coronary artery disease, type 2 diabetes, hypertension, hyperlipidemia, noncompliance, obesity. PAST SURGICAL HISTORY: Fistula placement, hysterectomy. HOME MEDICATIONS: Reviewed. ALLERGIES: IODINE. SOCIAL HISTORY: No smoking, alcohol, or illicit drug. FAMILY HISTORY: No history of any kidney disease. REVIEW OF SYSTEMS: CONSTITUTIONAL: Negative for weight loss or gain, ability to conduct usual activities. SKIN: Negative for rash, itching. EYES: Negative for double vision, pain. ENT/MOUTH: Negative for nose bleeding, neck stiffness, pain, tenderness. CARDIOVASCULAR: Negative for palpitations, dyspnea on exertion, orthopnea. RESPIRATORY: Negative for shortness of breath, wheezing, cough, hemoptysis, fever or night sweats. GASTROINTESTINAL: Negative for poor appetite, abdominal pain, heartburn, nausea, vomiting, constipation, or diarrhea. GENITOURINARY: Negative for urgency, frequency, dysuria, nocturia. MUSCULOSKELETAL: Negative for pain, swelling. NEUROLOGIC/PSYCHIATRIC: Negative for anxiety, depression. ALLERGY/IMMUNOLOGIC: Negative for skin rash, bleeding tendency. Rest are negative. PHYSICAL EXAMINATION: GENERAL: This is an obese female, in no apparent distress. VITAL SIGNS: Temperature 96, pulse 83, respiratory rate 20, blood pressure 175/87. HEENT: Atraumatic and normocephalic. Oral mucosa moist. NECK: Supple. CV: S1 and S2 heard. RESPIRATORY: Reduced breath sounds. GASTROINTESTINAL: Abdomen is soft. MUSCULOSKELETAL: 1+ edema. DERMATOLOGIC: No skin rash. NEUROLOGIC: Alert, awake. PSYCHIATRIC: Mood and affect normal. LABORATORY DATA: Hemoglobin is 7.5. Potassium is 4.1, BUN is 35, creatinine is 11.9. ASSESSMENT AND PLAN: 1. End-stage renal disease. Plan is to have dialysis today and the patient is on dialysis. 2. Edema, we will remove fluid. 3. Anemia, apparently delusional. We will have dialysis. 4. History of hypertension and pleural effusion. The patient also advised limit fluid intake and encourage her to have challenge at our facility and continue to monitor closely. We will follow. Thank you for the consult. Job ID: [id number]
== END 2019-05-24 11:30 | disposition home or self-care (01) ==
LOC: ERS 02:59
DX: J90 Pleural effusion, not elsewhere classified (principal); I11.0 Hypertensive heart disease with heart failure; I50.9 Heart failure, unspecified; E78.5 Hyperlipidemia, unspecified; I48.91 Unspecified atrial fibrillation; E11.9 Type 2 diabetes mellitus without complications; Z87.891 Personal history of nicotine dependence; Z79.51 Long term (current) use of inhaled steroids; Z79.899 Other long term (current) drug therapy
CPT/HCPCS: 36415; 71046; 71250; 80053; 82553; 83880; 84484; 85025; 85379; 93005

== ENCOUNTER 2020-03-27 06:03 | Inpatient (IN) | payer MEDICARE, MEDICAID, OTHER ==
[2020-03-27] MEDS ORDERED: Propofol 1,000 MG/100 ML VIAL IV ONE (06:15)
[2020-03-27 06:23] LABS: #Eosinphils 0.1 thou/uL (0.0-0.7); #Monocytes 0.8 thou/uL (0.11-0.59); #Neutrophils 11.1 thou/uL (1.40-6.50); %Basophils 0.2 % (0.0-1.0); %Eosinophils 0.5 % (0.0-10.0); %Lymphocytes 7.8 % (21.0-51.0); %Monocytes 6.3 % (0.0-10.0); %Neutrophils 85.2 % (42.0-75.0); Hemoglobin 9.3 g/dL (12.0-16.0); Mean Corpuscular HGB CONC 30.9 g/dL (32.0-36.0); Mean Corpuscular Hemoglobin 28.8 pg (27.0-31.0); Mean Corpuscular Volume 93.1 fL (78.0-98.0); Platelet Count 203 thou/uL (130-400); RBC Distribution Width 16.5 % (11.5-14.5); Red Blood Cell (RBC) Count 3.22 mill/uL (4.20-5.40)
[2020-03-27] MEDS ORDERED: Fentanyl 20 mcg/ml (100 ml CADD) IV PRN (06:25)
[2020-03-27 06:30] LABS: Actual Bicarbonate (HCO3a) 20.7 mEq/L (22-28); Analyzer IN Cardio ER; Base Excess (BEa) -6.7 mEq/L (-2.0 to +3.0); CO2 Tension 50.7 mmHg (35.0-45.0); Carboxyhemoglobin (COHb) 0.7 gm% (0.0-3.0); Hemoglobin (Hb) 9.3 g/dL (12.0-16.0); O2 Tension (PaO2), arterial 139.1 mmHg (80.0-100.0); Potassium - ABG Lab 4.47 mmol/L (3.70-5.30)
[2020-03-27] MEDS ORDERED: fentaNYL Citrate/PF 2,000 MCG in Sodium Chloride 0.9% 60 ML IV SCH ×2 (06:30→09:52)
[2020-03-27 06:45] LABS: ALT (SGPT) 23 U/L (8-55); AST (SGOT) 60 U/L (5-34); Albumin 3.9 g/dL (3.5-5.0); Alkaline Phosphatase 587 U/L (40-110); Anion Gap 26 mmol/L (10-20); BUN (Urea Nitrogen) 43 mg/dL (9.8-20.1); Bilirubin, Total 0.5 mg/dL (0.2-1.2); CK (CPK) 90 U/L (29-168); Calc. Creatinine Clearance 0 mL/min (70-130); Calcium 7.5 mg/dL (7.8-10.44); Carbon Dioxide 16 mmol/L (22-29); Chloride 101 mmol/L (98-107); Estimated GFR-MDRD 5; Globulin 2.6 g/dL (2.4-3.5); Glucose 153 mg/dL (70-105); Potassium 4.7 mmol/L (3.5-5.1); Protein, Total 6.5 g/dL (6.0-8.3); Sodium 138 mmol/L (136-145)
[2020-03-27 07:07] LABS: CKMB 1.6 ng/mL (0-6.6)
[2020-03-27 07:13] LABS: ALV-art Gradient 367.925 (0-20); Puncture Site LRA; pH, Arterial 7.23 (7.35-7.45)
--- NOTE | 2020-03-27 08:41 | PDOC.HHP ---
Hospitalist HPI - History of Present Illness cardiac arrest History of Present Illness: 54yo F w/ MHx of HFpEF, ESRD on HD, T2DM, afib (on apixaban 2.5mg), and Vtach (, treated on amiodarone drip as inpatient) who presented after being found down by EMS. called EMS for shortness of breath, when EMS arrived, found on floor with reported V-fib. She was defibrillated, but proceeded to a PEA arrest. They performed CPR for 4 minutes, and were able to regain spontaneous circulation but patient remained unresponsive. Transported to the nearest emergency room, there she had another episode of tachycardia and was cardioverted with 200j, returned to spontaneous circulation with sinus rhythm. Patient was intubated at that time and transported [place]. On encounter, intubated and sedated. ED Course: In the ED, hypothermic protocol was initiated and the patient was admitted to the CCU for additional management. Hospitalist ROS - Review of Systems ROS unobtainable: due to endotracheal tube Hospitalist History - Past Medical History Source: old records (PMHx: paroxysmal a-fib, stroke 2018 w/ L eye blindness, CHFpEF, DMII, HLD, ESRD w/ M/W/F dialysis, Vtach (12/2019, treated with amiodarone drip as inpatient) HTN PSHx: Hysterectomy FHx: Mother - COPD Social: denies smoking, stopped in 2008. Denies alcohol, drugs. lives with ) - Social History Alcohol: reports: None Drugs: reports: none - Exam General - other findings: intuabted and sedated ENT: normocephalic atraumatic Heart: RRR, no murmur, no gallops, no rubs Heart - other findings: attenuated heart sounds Respiratory: CTAB, no wheezes, no ronchi Gastrointestinal: soft, non-distended Gastrointestinal - other findings: attenuated bowel sounds Extremities: 2+ LE edema Extremities - other findings: to knee level, b/l, equal Hospitalist Results - Labs Result Diagrams: 03/27/20 06:06 03/27/20 06:06 Lab results: WBC 13.0 thou/uL (4.8-10.8) H 03/27/20 06:06 Hgb 9.3 g/dL (12.0-16.0) L 03/27/20 06:06 Hct 30.0 % (36.0-47.0) L 03/27/20 06:06 MCV 93.1 fL (78.0-98.0) 03/27/20 06:06 Plt Count 203 thou/uL (130-400) 03/27/20 06:06 Neutrophils % 85.2 % (42.0-75.0) H 03/27/20 06:06 ABG pH 7.23 (7.35-7.45) L* 03/27/20 06:20 ABG pCO2 50.7 mmHg (35.0-45.0) H 03/27/20 06:20 ABG pO2 139.1 mmHg (80.0-100.0) H 03/27/20 06:20 Sodium 138 mmol/L (136-145) 03/27/20 06:06 Potassium 4.7 mmol/L (3.5-5.1) 03/27/20 06:06 Chloride 101 mmol/L (98-107) 03/27/20 06:06 Carbon Dioxide 16 mmol/L (22-29) L 03/27/20 06:06 BUN 43 mg/dL (9.8-20.1) H 03/27/20 06:06 Creatinine 8.62 mg/dL (0.6-1.1) H 03/27/20 06:06 Glucose 153 mg/dL (70-105) H 03/27/20 06:06 Lactic Acid 5.6 mmol/L (0.5-2.2) H* 03/27/20 06:06 Calcium 7.5 mg/dL (7.8-10.44) L 03/27/20 06:06 Total Bilirubin 0.5 mg/dL (0.2-1.2) 03/27/20 06:06 AST 60 U/L (5-34) H 03/27/20 06:06 ALT 23 U/L (8-55) 03/27/20 06:06 Alkaline Phosphatase 587 U/L (40-110) H 03/27/20 06:06 Creatine Kinase 90 U/L (29-168) 03/27/20 06:06 CK-MB (CK-2) 1.6 ng/mL (0-6.6) 03/27/20 06:06 Troponin I 0.102 ng/mL (< 0.028) H 03/27/20 06:06 B-Natriuretic Peptide 3103.5 pg/mL (0-100) H 03/27/20 06:06 Serum Total Protein 6.5 g/dL (6.0-8.3) 03/27/20 06:06 Albumin 3.9 g/dL (3.5-5.0) 03/27/20 06:06 - EKG Interpretation EKG: a-v paced rhythm with significant discordant ROB > 5mm. - Radiology Interpretation Chest x-ray Status: image reviewed by me Additional Comment: cardiomegaly, pacemaker in place. no acute pulmonary process Hospitalist H&P A/P - Problem (1) Cardiac arrest Code(s): I46.9 - CARDIAC ARREST, CAUSE UNSPECIFIED Status: Acute (2) Pulseless electrical activity Code(s): I46.9 - CARDIAC ARREST, CAUSE UNSPECIFIED Status: Acute (3) CHF (congestive heart failure) Code(s): I50.9 - HEART FAILURE, UNSPECIFIED Status: Chronic Qualifiers: Heart failure type: diastolic Heart failure chronicity: acute on chronic Qualified Code(s): I50.33 - Acute on chronic diastolic (congestive) heart failure (4) ESRD (end stage renal disease) on dialysis Code(s): N18.6 - END STAGE RENAL DISEASE; Z99.2 - DEPENDENCE ON RENAL DIALYSIS Status: Chronic (5) PAF (paroxysmal atrial fibrillation) Code(s): I48.0 - PAROXYSMAL ATRIAL FIBRILLATION Status: Chronic (6) Type 2 diabetes mellitus Status: Chronic - Plan Plan: #Cardiac arrest #PEA #Vtach intuabted and sedated; on hypothermia protocol EKG showing paced rhythm with reciprocal ROB > 5mm; Trop x 1 elevated; BNP grossly elevated; cardiology consulted ABG c/w AG combined metabolic and respiratory acidosis; PCCM and nephrology consulted elevated WBC with neutrophilia; started vanc and zosyn considering found down and may have aspirated for history of Vtach, patient was discharged on flecainide after inpatient amlodipine drip; reported Vtach/vfib on EMS encounter #ESRD on HD nephrology consulted #HFpEF BNP grossly elevated repeat echo resume meds on confirmation HD as per nephrology #T2DM Insulin drip started #p. afib per EMR patient was on apixaban 2.5mg, flecainide, diltiazem will resume on confirmation of medications Dispo/ppx Full code (spoke with family member and asked to confirm with other family members regarding code status. Will call back hospital); palliative team consulted GI PPx: on pantoprazole for GERD DVT PPx: on apixaban for p.afib; will resume on confirmation
[2020-03-27] MEDS ORDERED: Heparin 10,000 UNITS/ 10 ML VIAL ONE (09:06)
[2020-03-27 09:22] LABS: SARS-CoV-2 NAA Rapid Test Not Detected (NotDetected)
--- NOTE | 2020-03-27 09:22 | RAD ---
PORTABLE CHEST: HISTORY: Intubation. COMPARISON: A 01/14/2020 study. FINDINGS: Heart size is enlarged. Pulmonary vessels appear engorged. Endotracheal and NG tubes are in satisfa ctory position. IMPRESSION: 1. Placement of endotracheal and nasogastric tubes which are in satisfactory position. 2. Cardiomegaly with mild pulmonary vascular engorgement. POS: OFF
[2020-03-27] MEDS ORDERED: Sodium Chloride 0.9% 1,000 ML IV SCH (09:30)
[2020-03-27] MEDS ORDERED: HUMULIN R 100 UNITS in Sodium Chloride 0.9% 100 ML IVPB SCH (09:48)
[2020-03-27] MEDS ORDERED: Electrolyte Replacement Protoc 1 EACH EACH IVPB ONE (09:48)
[2020-03-27] MEDS ORDERED: Ventilator Sedation Protocol 1 EACH FS SCH (09:48)
[2020-03-27 09:50] LABS: Lactic Acid 3.7 mmol/L (0.5-2.2)
[2020-03-27] MEDS ORDERED: Propofol BOLUS 1,000 MG/100 ML VIAL IV PRN (09:52)
[2020-03-27] MEDS ORDERED: Morphine 2 MG/ML VIAL SLOW IVP PRN (09:52)
[2020-03-27] MEDS ORDERED: Fentanyl BOLUS 250 ML IVPB PRN (09:52)
[2020-03-27] MEDS ORDERED: HumaLOG 300 UNITS/3 ML VIAL SC PRN (10:21)
[2020-03-27] MEDS ORDERED: Dextrose 50% Abboject 50 ML SYRINGE IVP PRN (10:30)
[2020-03-27] MEDS ORDERED: Dextrose 5% in Water 1,000 ML IV PRN (10:30)
[2020-03-27] MEDS ORDERED: Heparin 1,000 UNITS/ML VIAL ONE (10:48)
[2020-03-27] MEDS: Labetalol HCl 100 MG/20 ML VIAL SLOW IVP PRN (11:12)
[2020-03-27 11:43] LABS: Actual Bicarbonate (HCO3a) 19.1 mEq/L (22-28); Base Excess (BEa) -3.3 mEq/L (-2.0 to +3.0); Carboxyhemoglobin (COHb) 0.5 gm% (0.0-3.0); Hemoglobin (Hb) 8.1 g/dL (12.0-16.0); O2 Tension (PaO2), arterial 205.9 mmHg (80.0-100.0); Potassium - ABG Lab 5.65 mmol/L (3.70-5.30)
[2020-03-27] MEDS ORDERED: Vancomycin HCl 1.25 GM in Sodium Chloride 0.9% 250 ML 250 ML IVPB SCH (11:45)
[2020-03-27] MEDS ORDERED: Vancomycin 1 GM in Premix Bag 1 BAG IVPB SCH (11:45)
[2020-03-27] MEDS ORDERED: Vancomycin HCl 500 MG in Sodium Chloride 0.9% 100 ML IVPB SCH (11:45)
[2020-03-27] MEDS ORDERED: HOLD VANCOMYCIN FOR LEVEL >20 FS SCH (11:45)
[2020-03-27 11:46] LABS: Puncture Site RRA
[2020-03-27] MEDS ORDERED: Vancomycin HCl 1.75 GM in Sodium Chloride 0.9% 500 ML IVPB SCH (12:00)
[2020-03-27] MEDS ORDERED: Nitroglycerin 50 MG/250 ML BOT 250 ML IVPB SCH (12:45)
--- NOTE | 2020-03-27 14:02 | CON ---
DATE OF CONSULTATION: REASON FOR CONSULTATION: Recent cardiac arrest. HISTORY OF PRESENT ILLNESS: Ms. Ness is a 54-year-old woman, who has been seen and evaluated at [facility] in the past by Dr. Jose Orellana. She has also been seen by Dr. Luis Eckert. The notes are not currently available, but there is some notation from previous noted that she has had ventricular fibrillation in the past. She recently did not feel well. She was then found down. No pulse was noted at the scene. CPR ensued. Return of spontaneous circulation was noted. She was brought urgently for further disposition to [facility]. She is currently following commands. PAST MEDICAL HISTORY: Atrial fibrillation, status post pacemaker; end-stage renal disease with some noncompliance; hysterectomy; diabetes mellitus; hyperlipidemia. SOCIAL HISTORY: No current tobacco or alcohol use per chart. REVIEW OF SYSTEMS: Unobtainable as she is currently intubated and sedated. PHYSICAL EXAMINATION: GENERAL: She is currently intubated and sedated. VITAL SIGNS: Blood pressure 196/127, pulse 60, respirations 20. NEUROLOGIC: The patient is alert and oriented x3 with no focal neurologic deficits. HEENT: Sclerae without icterus. Mouth has moist mucous membranes with normal pallor. NECK: No JVD. Carotid upstroke brisk. No bruits bilaterally. LUNGS: Clear to auscultation with unlabored respirations. BACK: No scoliosis or kyphosis. CARDIAC: Regular rate and rhythm with normal S1 and S2. No S3 or S4 noted. No significant rubs, murmurs, thrills, or gallops noted throughout the precordium. PMI is not displaced. There is no parasternal heave. ABDOMEN: Soft, nontender, nondistended. No peritoneal signs present. No hepatosplenomegaly. No abnormal striae. EXTREMITIES: 2+ femoral and 2+ dorsalis pedis pulses. No cyanosis, clubbing, or edema. SKIN: No gross abnormalities. PERTINENT LABORATORY DATA: Hemoglobin 9.3. Lactic acid level 5.6, now down to 3.7. Peak troponin 0.102. BNP of 3103. Creatinine 8.62 with a BUN of 43. IMPRESSION: 1. Cardiac arrest. 2. Atrial fibrillation. 3. Status post pacemaker. RECOMMENDATIONS: At this point, she is currently following commands. She has markedly elevated blood pressure. We will add Cardene and likely IV nitroglycerin for better blood pressure control. We will try and obtain old records from [facility] and from [facility]. She is currently being followed by Pulmonary. I will also recommend echo with Doppler to assess LVEF. Her BNP is markedly elevated. ADDENDUM: Total critical care time 65 minutes. I was called to Ms. Ness's bedside. She developed a wide-complex tachycardia. She did have a baseline wide-complex. She also developed hypotension with blood pressure in the 70s. She was given dopamine. She was awake, not complaining of chest pain, pressure, or other associated symptoms. Her CK and troponins have been negative. I did speak to Dr. Jose Orellana, her primary catalog librarian. He states she underwent coronary angiography in 2016 and was found to have mild coronary artery disease. She has not been able to receive dialysis due to a clotted fistula. Dialysis is anticipated tomorrow. The patient is also on flecainide for atrial fibrillation and there was concern for flecainide toxicity. Stat labs were drawn and the patient's potassium level was 6.9. It was felt her current demise was secondary to hyperkalemia. Discussed case with Dr. Vasquez, who agreed. She will undergo emergent dialysis tonight after dialysis catheter placement. Job ID: [id number]
[2020-03-27] MEDS: Piperacillin/Tazobactam 2.25 GM in Sodium Chloride 0.9% 100 ML IVPB SCH ×2 (14:36→22:12)
[2020-03-27] MEDS: Propofol 1,000 MG/100 ML VIAL IV PRN ×2 (14:37→22:12)
--- NOTE | 2020-03-27 15:26 | CON ---
DATE OF CONSULTATION: 03/27/2020 CONSULTING PHYSICIAN: Dr. Alvarado. REASON FOR CONSULTATION: End-stage renal disease evaluation and care. REASON FOR ADMISSION: Cardiac cath. HISTORY OF PRESENT ILLNESS: This is a 54-year-old female with history of end-stage renal disease, hypertension, came to the hospital with cardiac arrest and was intubated currently in ICU, due for dialysis today, but her access was clotted as she is planned to have dialysis later on today. She remains intubated. PAST MEDICAL HISTORY: Positive for end-stage renal disease, heart failure, type 2 diabetes, hyperlipidemia, COPD. PAST SURGICAL HISTORY: Dialysis access placement. HOME MEDICATIONS: Reviewed. ALLERGIES: IODINE. SOCIAL HISTORY: No smoking, alcohol, or illicit drugs. FAMILY HISTORY: No history of kidney disease. REVIEW OF SYSTEMS: Could not be obtained due to intubation. PHYSICAL EXAMINATION: GENERAL: This is an obese female, intubated. VITAL SIGNS: Temperature 94.2, pulse 120, respiratory rate . HEENT: Intubated. CVS: S1 and S2 heard. RESPIRATORY: Clear. GI: Abdomen is soft. MUSCULOSKELETAL: 1+ edema. DERMATOLOGIC: No skin rash. NEUROLOGIC: Intubated. LABORATORY DATA: Hemoglobin 9.3. Potassium 4.7, BUN is 43, and creatinine is 8.6. ASSESSMENT AND PLAN: 1. End-stage renal disease. Plan to have dialysis, but her access is clotted. We will consult IR, if not able to have declotting today, might need a temporary dialysis catheter placement with a need to consult for Surgery. 2. Edema. 3. Hypertension. 4. Anemia of chronic disease. 5. Acute hypoxic respiratory failure. 6. Cardiac arrest. Prognosis, poor. Plan to have dialysis if tolerated. Job ID: [id number]
[2020-03-27] MEDS ORDERED: DOPamine 400 MG/D5W 250 ML 250 ML ONE (17:31)
[2020-03-27] MEDS ORDERED: Calcium Chloride 1 GM/10 ML Abboject SYRINGE ONE ×2 (17:44→18:20)
[2020-03-27 18:11] LABS: Anion Gap 20 mmol/L (10-20); BUN (Urea Nitrogen) 48 mg/dL (9.8-20.1); Calc. Creatinine Clearance 12 mL/min (70-130); Calcium 7.2 mg/dL (7.8-10.44); Carbon Dioxide 18 mmol/L (22-29); Chloride 103 mmol/L (98-107); Estimated GFR-MDRD 5; Glucose 126 mg/dL (70-105); Sodium 134 mmol/L (136-145)
[2020-03-27 18:12] LABS: Potassium 6.9 mmol/L (3.5-5.1)
[2020-03-27 18:37] LABS: Troponin I 0.207 ng/mL (< 0.028)
[2020-03-27] MEDS ORDERED: Norepinephrine 8 MG/0.9% NS 250 ML IVPB PRN (20:21)
[2020-03-27 20:25] LABS: RBC/HPF Greater than 50 HPF (0-3); Squamous Epithelial None Seen HPF (0-3); WBC/HPF Greater than 50 HPF (0-3)
[2020-03-27 20:27] LABS: Bilirubin Negative (Negative); Blood, Urine Large (Negative); Clarity Hazy (Clear); Glucose, Urine (Dipstick) 100 mg/dL (Negative); Ketone, Urine Negative (Negative); Leukocyte Small (Negative); Nitrite Negative (Negative); Protein, Urine (Dipstick) > or equal to 300 mg/dL (Neg-Trace); Urobilinogen 0.2 mg/dL (Less than 2)
[2020-03-27 20:28] LABS: Bacteria/HPF 1+ HPF (None Seen); Urine Culture Reflex No No
--- NOTE | 2020-03-27 20:29 | PDOC.EVN ---
Event Note - Event Note Event Note: patient hypotensive, wide complex tach on telemetry, pending emergent hemodialysis; started levophed and amiodarone loading+maintenance, stopped nitroglycerin. pending further evaluation by cardiology. Contacted to update, requested all measures to be applied for resuscitation.
[2020-03-27 20:31] LABS: Amphetamine Not Detected (NotDetected); Barbiturates Screen Not Detected (NotDetected); Benzodiazepine Screen Not Detected (NotDetected); Cocaine Metabolite Screen Not Detected (NotDetected); Medtox Control Line Valid? VALID (VALID); Medtox Reader # READER 1; Methadone Not Detected (NotDetected); Methamphetamine Not Detected (NotDetected); Opiate Screen Not Detected (NotDetected); Oxycodone Screen Not Detected (NotDetected); Phencyclidine (PCP) Not Detected (NotDetected); THC/Cannabinoid Screen Not Detected (NotDetected); Tricyclic Screen Not Detected (NotDetected)
[2020-03-27] MEDS ORDERED: Amiodarone 150 MG, Admixture Fee 1 EACH in Dextrose 5% in Water 100 ML IVPB SCH (20:50)
[2020-03-27] MEDS ORDERED: Prevnar 13-Val Conj/PF 0.5 ML SYRINGE IM ONE (21:00)
[2020-03-27] MEDS ORDERED: Amiodarone 450 MG, Admixture Fee 1 EACH in Dextrose 5% in Water 250 ML IVPB SCH (21:00)
[2020-03-27 23:34] LABS: Hep B Surf Ag Non-Reactive S/CO (NonReactive)
[2020-03-28] MEDS: Lorazepam 2 MG/ML VIAL SLOW IVP PRN (01:35)
--- NOTE | 2020-03-28 01:41 | CON ---
DATE OF CONSULTATION: 03/27/2020 HISTORY OF PRESENT ILLNESS: Grover is a 54-year-old female, who has been followed at [facility] by the other group meat and poultry inspector. She apparently found down at home, which led to CPR. She was successfully resuscitated. PAST MEDICAL HISTORY: Remarkable for; 1. Pacemaker. 2. History of atrial fibrillation. 3. End-stage renal disease. 4. History of marginal compliance with her end-stage renal disease. 5. Status post hysterectomy. 6. Diabetes. 7. Lipid disorder. SOCIAL HISTORY: She is a nonsmoker and nondrinker. REVIEW OF SYSTEMS: Not obtainable since she is intubated. PHYSICAL EXAMINATION: VITAL SIGNS: Heart rate is 120, respiratory rate is 12, FiO2 is 50% today, blood pressure 167/105, respiratory rates in the 30s. HEENT: Pupils react. Sclerae are anicteric. NECK: Supple. LUNGS: Clear anteriorly. HEART: Regular rhythm. ABDOMEN: Soft. EXTREMITIES: Without asymmetry or edema. LABORATORY DATA: Chest x-ray shows mild pulmonary edema. White count 13, hemoglobin 9.3, platelets 203. Sodium 134, potassium 6.9, chloride 103, bicarb 18, BUN 48 , and creatinine 8.31. PH 7.5, CO2 of 25, PO2 of 205. IMPRESSION: 1. Respiratory failure. 2. Status post cardiac arrest. 3. End-stage renal disease. It is unclear at this point whether or not hyperkalemia and issues surrounding dialysis contribute to her cardiac arrest. 4. We will reassess her for weaning and extubation in the morning. CRITICAL CARE TIME: 30 minutes. Job ID: [id number] MTDD
--- NOTE | 2020-03-28 02:46 | OP ---
DATE OF PROCEDURE: 03/27/2020 PREOPERATIVE DIAGNOSES: Ventricular fibrillation, ventricular tachycardia, hyperkalemia, thrombosed right upper arm loop dialysis graft, respiratory failure, in need of IV access, right humeral head IO access, left cephalic vein midline IV in place, morbidly obese. POSTOPERATIVE DIAGNOSES: Ventricular fibrillation, ventricular tachycardia, hyperkalemia, thrombosed right upper arm loop dialysis graft, respiratory failure, in need of IV access, right humeral head IO access, left cephalic vein midline IV in place, morbidly obese. PROCEDURES PERFORMED: Placement of right femoral vein Trialysis catheter. Placement of left femoral vein triple-lumen catheter. Removal of IO catheter, removal of left upper arm midline catheter. Examination revealing thrombosed right upper arm loop graft, prosthetic. ANESTHESIA: 1% Xylocaine. DESCRIPTION OF PROCEDURE: With the patient at bedside in the ICU, on emergent basis, both groins clipped of hair, prepared with ChloraPrep and draped in routine fashion. 1% Xylocaine was infiltrated in the skin and subcutaneous tissue. Seldinger technique used on both sides, on the right to place a Trialysis catheter, on the left to place a triple-lumen catheter. Each catheter was secured with 3-0 nylon suture. CHD dressing applied. Each port aspirated blood, flushed with heparinized saline solution. Patient tolerated the procedure well. Dialysis team had been notified earlier for stat arrival to stat initiate dialysis. Job ID: [id number]
[2020-03-28] MEDS: niCARdipine 25 MG in Sodium Chloride 0.9% 250 ML 240 ML IVPB SCH ×2 (02:53→19:41)
[2020-03-28] MEDS: Propofol 1,000 MG/100 ML VIAL IV PRN ×4 (04:28→21:25)
[2020-03-28] MEDS: Piperacillin/Tazobactam 2.25 GM in Sodium Chloride 0.9% 100 ML IVPB SCH ×3 (05:15→21:26)
[2020-03-28 05:28] LABS: ALT (SGPT) 14 U/L (8-55); AST (SGOT) 25 U/L (5-34); Alkaline Phosphatase 460 U/L (40-110); Anion Gap 16 mmol/L (10-20); BUN (Urea Nitrogen) 15 mg/dL (9.8-20.1); Bilirubin, Total 0.4 mg/dL (0.2-1.2); Calc. Creatinine Clearance 27 mL/min (70-130); Calcium 7.2 mg/dL (7.8-10.44); Carbon Dioxide 29 mmol/L (22-29); Chloride 99 mmol/L (98-107); Estimated GFR-MDRD 14; Globulin 2.5 g/dL (2.4-3.5); Glucose 76 mg/dL (70-105); Potassium 3.4 mmol/L (3.5-5.1); Protein, Total 5.5 g/dL (6.0-8.3); Sodium 141 mmol/L (136-145)
[2020-03-28 05:52] LABS: Hemoglobin 6.6 g/dL (12.0-16.0); Mean Corpuscular HGB CONC 31.2 g/dL (32.0-36.0); Mean Corpuscular Hemoglobin 28.6 pg (27.0-31.0); Mean Corpuscular Volume 91.4 fL (78.0-98.0); Mean Platelet Volume 9.3 fL (7.4-10.4); Platelet Count 121 thou/uL (130-400); RBC Distribution Width 16.1 % (11.5-14.5); Red Blood Cell (RBC) Count 2.31 mill/uL (4.20-5.40); White Blood Cell (WBC) Count 2.9 thou/uL (4.8-10.8)
[2020-03-28 06:47] LABS: Band 10 % (5-11); Eosinophils 1 % (0-10); Lymphocytes 13 % (21-51); MDiff Complete? YES; Monocytes 2 % (0-10); Neutrophil 74 % (42-75)
[2020-03-28] MEDS ORDERED: Potassium Chloride 40 MEQ in Premix Bag 1 BAG IVPB SCH (08:00)
--- NOTE | 2020-03-28 08:08 | PRG ---
DATE OF SERVICE: 03/28/2020 SUBJECTIVE: Ms. Ness did much better overnight. She underwent dialysis. Her QRS narrowed dramatically from her EKG yesterday at around 6 p.m. Her blood pressure and heart rate now are stabilized. Per the nurses, it occurred about 45 minutes into dialysis. She is currently intubated and sedated. OBJECTIVE: VITAL SIGNS: Blood pressure 139/81, pulse 60, temperature afebrile. LUNGS: Clear to auscultation. HEART: Regular rate and rhythm. ABDOMEN: Soft, nontender, nondistended. EXTREMITIES: 1+ pitting edema. PERTINENT LABORATORY DATA: Hemoglobin 9.3 yesterday, down to 6.6. Potassium 3.4. IMPRESSION: 1. Hyperkalemia. 2. Wide QRS complex. 3. Previously diagnosed mild coronary artery disease. 4. Paroxysmal atrial fibrillation. RECOMMENDATIONS: The patient is much better after receiving dialysis. Her clotted dialysis access will need to be addressed by Nephrology. This is much less likely to be due to flecainide toxicity given her QRS complex narrowed dramatically in less than 1 hour. flecainide toxicity is not dialyzable and is treated with hypertonic saline and will slowly improve over time. We will avoid use of flecainide therapy given the history dialysis and history of noncompliance. This has been discontinued. We would recommend continuing to control blood pressure. Would also consider outpatient EP consultation for atrial flutter ablation. She had evidence of atrial flutter yesterday. We will also recommend transfusion with 1 to 2 units of packed red blood cells. Job ID: [id number]
--- NOTE | 2020-03-28 08:14 | RAD ---
PORTABLE CHEST: HISTORY: Respiratory distress. COMPARISON: Prior day's study. FINDINGS: Endotracheal and NG Tubes remain in satisfactory position. Heart size is enlarged. Parenchymal lung changes are similar to the prior exam with slightly increased parahilar lung markings. IMPRESSION: Stable exam. POS: MELANIE
--- NOTE | 2020-03-28 08:31 | PDOC.HOSPP ---
- Subjective Encounter Date: 03/28/20 Encounter Time: 07:30 Subjective: overnight, severe hyperkalemia, regular wide complex tachycardia, hypotensive predialysis; stopped nitro and started levophed and amiodarone pending cardiology evaluation. Tolerated HD well, converted to paced rhythm, currently HD stable. This morning, sedated and intubated. Wiggles toes in response to palpation. - Objective Vital Signs & Weight: Vital Signs (12 hours) Temp Pulse Resp BP Pulse Ox 03/28/20 08:14 99 03/28/20 07:12 60 147/82 H 03/28/20 06:00 12 03/28/20 04:00 97.7 F 12 03/28/20 02:16 60 150/84 H 03/28/20 02:00 12 03/28/20 00:00 97.4 F L 12 03/27/20 22:00 12 03/27/20 21:59 60 154/92 H Weight Weight 207 lb 3.752 oz Most Recent Monitor Data Heart Rate from ECG 60 NIBP 139/81 NIBP BP-Mean 100 Respiration from ECG 14 SpO2 100 I&O: 03/27/20 03/28/20 03/29/20 06:59 06:59 06:59 Intake Total 1542 Output Total 15 Balance 1527 Result Diagrams: 03/28/20 04:05 03/28/20 04:05 Additional Labs: Accuchecks 03/28/20 03/27/20 03/27/20 00:28 17:33 10:34 POC Glucose 73 130 H 128 H Hospitalist ROS - Review of Systems ROS unobtainable: due to endotracheal tube - Medication Medications: Active Medications Generic Name Dose Route Start Last Admin Trade Name Freq PRN Reason Stop Dose Admin Piperacillin Sod/Tazobactam 100 mls @ 200 mls/hr 03/27/20 14:00 03/28/20 05: 15 Sod 2.25 gm/ Sodium Chloride IVPB 100 mls Q8HR MICHELLE Administration Nicardipine HCl 25 mg/ Sodium 250 mls @ 0 mls/hr 03/27/20 22:15 03/28/20 02: 53 Chloride IVPB 250 mls INF MICHELLE Administration Protocol Titrate Labetalol HCl 10 mg 03/27/20 10:26 03/27/20 11:12 Normodyne SLOW IVP 10 mg Q4H PRN Administration BP > 180/110 Lorazepam 2 mg 03/27/20 09:52 03/28/20 01:35 Ativan SLOW IVP 04/26/20 09:52 2 mg Q1H PRN Administration Breakthrough agitation Propofol 1,000 mg 03/27/20 09:52 03/28/20 04:28 Diprivan IV 04/26/20 09:52 1,000 mg INF PRN Administration TO ACHIEVE GOAL RASS Protocol Sodium Chloride 10 ml 03/27/20 21:00 03/27/20 22:05 Flush - Normal Saline IVF Not Given Q12HR MICHELLE - Exam General - other findings: intubated sedated Eye: PERRL, anicteric sclera Neck: no JVD Heart: RRR, no murmur, no gallops, no rubs Heart - other findings: paced on telemetry Respiratory: no wheezes, no rales, no ronchi Respiratory - other findings: coarse breath sounds Gastrointestinal: soft, non-distended Extremities: 2+ LE edema Hosp A/P (1) Cardiac arrest Code(s): I46.9 - CARDIAC ARREST, CAUSE UNSPECIFIED Status: Acute (2) Pulseless electrical activity Code(s): I46.9 - CARDIAC ARREST, CAUSE UNSPECIFIED Status: Acute (3) CHF (congestive heart failure) Code(s): I50.9 - HEART FAILURE, UNSPECIFIED Status: Chronic Qualifiers: Heart failure type: diastolic Heart failure chronicity: acute on chronic Qualified Code(s): I50.33 - Acute on chronic diastolic (congestive) heart failure (4) ESRD (end stage renal disease) on dialysis Code(s): N18.6 - END STAGE RENAL DISEASE; Z99.2 - DEPENDENCE ON RENAL DIALYSIS Status: Chronic (5) PAF (paroxysmal atrial fibrillation) Code(s): I48.0 - PAROXYSMAL ATRIAL FIBRILLATION Status: Chronic (6) Type 2 diabetes mellitus Status: Chronic - Plan #s/p Cardiac arrest #s/p PEA #Vtach #acute respiratory failure requiring intubation currently paced, HD stable;intuabted and sedated on cardene per cardiology; Holding flecainide - defer to cardiology mechanical ventilation per PCCM #ESRD on HD #Hypokalemia Access clotted; temporary HD access established, pending possible fistula declotting nephrology onboard; per nephrology, no potassium supplementation #UTI Less likely; proteinuria, pyuria, and hematuria likely result of nephropathy; On vanc and zosyn pending infectious workup finalization #HFpEF BNP grossly elevated pending echo #T2DM borderline hypoglycemia; BG q4h; hypoglycemia protocol; feeding as per PCCM; mild sliding scale #p. afib restarted apixaban; Dispo/ppx Full code. palliative onboard GI PPx: No Ix. Pepcid may lead to prolonged QTc, especially with moderate to severe renal impairment, and neurotoxic syndrome. If not extubated, will start PPI IV q24h DVT PPx: on apixaban for p.afib
[2020-03-28] MEDS ORDERED: Dextrose 5% in Water 1,000 ML IV PRN (08:42)
[2020-03-28] MEDS ORDERED: Dextrose 50% Abboject 50 ML SYRINGE SLOW IVP PRN (08:42)
[2020-03-28] MEDS ORDERED: Apixaban 2.5 MG TAB PO SCH (09:00)
[2020-03-28] MEDS ORDERED: diphenhydrAMINE 50 MG/ML VIAL IVP SCH (11:00)
[2020-03-28] MEDS ORDERED: methylPREDNISolone Sod Succ/PF 125 MG/2 ML VIAL IVP SCH (11:00)
[2020-03-28] MEDS ORDERED: Famotidine/PF 20 mg/2ml Vial SLOW IVP SCH (11:00)
--- NOTE | 2020-03-28 11:06 | PDOC.EVN ---
Event Note - Event Note Event Note: Placed order for potassium supplementation based on morning lab of K 3.4 at 8am. received page at 10:46am, was in the ICU, nurse asked why did I supplement since her potassium of 4.7 yesterday was the reason she went into afib. Asked who told her that, so she replied that cardiology. I said that I disagree, and asked what was potassium this morning, to which she replied "it was 3.7." checked potassium again, and replied that it was 3.4 and not 3.7 and that she can give potassium supplementation. Nurse said that she refuses to give supplementation and will discuss with nephrology and cardiology. Charge nurse was there at time of incident. Asked charge nurse reason for not giving potassium, to which she replied that they don't usually give to dialysis patients. At the time, was unaware if patient received or about to receive dialysis today to address hypokalemia. Asked nephrology after incident, who confirmed low K was after hemodialysis was completed earlier this morning. Discussed the incident with the charge nurse and recurrent mismanagement and unprofessionalism of nurse Halie Piedra.
--- NOTE | 2020-03-28 11:20 | ULT ---
EXAM: Vein mapping for dialysis access HISTORY: End-stage renal disease. A previous right-sided fistula has thrombosed TECHNIQUE: Multiplanar grayscale and color Doppler images were obtained in a bilateral upper extremit y venous ultrasound. Spectral analysis of the Doppler waveforms of the vessels were performed. FINDINGS: The bilateral internal jugular veins and subclavian veins are patent without evidence of th rombus. Right brachial artery 6.6 mm Right radial artery 3.3 mm Right ulnar artery 3.3 mm Left brachial artery 5.1 mm Left radial artery 2.7 mm Left ulnar artery 3.1 mm RIGHT CEPHALIC VEIN in millimeters Occluded -- Shoulder Occluded -- Upper arm Occluded -- Mid upper arm Occluded-- Just proximal to the elbow Occluded -- Just distal to the elbow Occluded -- Forearm Occluded -- Wrist RIGHT BASILIC VEIN in millimeters Occluded -- Shoulder 5.4 -- Upper arm 3.4 -- Mid upper arm 1.8 -- Just proximal to the elbow Occluded -- Just distal to the elbow Occluded -- Forearm Occluded -- Wrist LEFT CEPHALIC VEIN in millimeters 1.6 -- Shoulder 1.9 -- Upper arm 1.3 -- Mid upper arm 1.1 -- Just proximal to the elbow 1.6 -- Just distal to the elbow 1.2 -- Forearm 1.5 -- Wrist LEFT BASILIC VEIN in millimeters 2.3 -- Shoulder 3.1 -- Upper arm 2.7 -- Mid upper arm 3.3 -- Just proximal to the elbow 1.2 -- Just distal to the elbow 0.8 -- Forearm 0.9 -- Wrist IMPRESSION: Vein mapping for dialysis access as above
[2020-03-28] MEDS ORDERED: Sterile Water 10 ML VIAL IVP SCH (12:30)
[2020-03-28] MEDS ORDERED: Activase 2 MG VIAL CATH SCH (12:30)
--- NOTE | 2020-03-28 13:07 | PRG ---
DATE OF SERVICE: 03/28/2020 SUBJECTIVE: The patient is seen and examined in ICU. She is currently intubated, but awake. She is waiting for her fistulogram to be done. She is allergic to iodine. OBJECTIVE: GENERAL: This is an obese white female, intubated, seen in ICU. VITAL SIGNS: Temperature 97.7, pulse 61, respiratory rate is 14, blood pressure 139/76. HEENT: Intubated. CVS: S1 and S2 heard. RESPIRATORY: Clear. GI: Abdomen is soft. MUSCULOSKELETAL: No edema. DERMATOLOGIC: No skin rash. NEUROLOGIC: Awake, but intubated. LABORATORY DATA: Potassium is 3.4, BUN is 15, creatinine is 3.5. ASSESSMENT AND PLAN: 1. End-stage renal disease, had dialysis yesterday, tolerated well. 2. Hyperkalemia, much better after dialysis. 3. Clotted dialysis access. IR to have fistulogram today and possible declotting to salvage her fistula. Once the fistula is working, remove the dialysis catheter. 4. Acute hypoxic respiratory failure. 5. Cardiac arrest. 6. Hypertension. I appreciate help from Cardiology and Interventional Radiology. Hyperkalemia is better. Her cardiac status seems to be better plan to extubate later on. We will plan for dialysis tomorrow and then Friday, Friday, and Friday as tolerated. Recheck labs in the morning. Job ID: [id number]
[2020-03-28] MEDS ORDERED: Sodium Chloride 0.9% 10 ML ONE (13:33)
--- NOTE | 2020-03-28 13:34 | PDOC.PALCO ---
Palliative Care Consult - Consult Details Requesting Physician: Dr Alvarado Reason for Consult: advance directives assistance, assistance with communication prognosis/disease, family support Family Members Present: Luis via phone - Pertinent HPI Mrs Ness lives with her spouse. History of non compliance with hemodialysis. Ems was called to the home for reported cardiac arrest. Upon EMS arrival she was found on the floor, secondary to ventricular fibrillation she was defibrillated and transitioned to PEA, initiation of CPR and return of spontaneous circulation. Intubated and transported to [facility]. Admitted to CCU for further medical management and care. - Pertinent PMH Renal failure requiring hemodialysis, history of non compliance, CHF pEF, HDL, hist of CVA - Social History Smoking Status: Former smoker Smoking: no tobacco exposure Alcohol Use: none Drug Use History: none Living Situation: independent, - Medications MAR Reviewed: Yes - Allergies Allergies/Adverse Reactions: Allergies Allergy/AdvReac Type Severity Reaction Status Date / Time iodine Allergy Verified 01/14/20 07:39 - Subjective Intubated on mechanical ventilation, sedation/fentanyl - ROS Non Response: due to endotracheal tube, due to mental status - Objective Vital Signs: Vital Signs - Most Recent Temp Pulse Resp BP Pulse Ox 97.7 F 61 12 139/76 99 03/28/20 04:00 03/28/20 10:24 03/28/20 06:00 03/28/20 10:24 03/28/20 08:14 Palliative Performance Scale: 30 - Physical Exam Constitutional: encephalitic, ill appearing HEENT: moist MMs Deviation from normal: mechanical ventilation Genitourinary: blanco catheter - Problem List (1) Palliative care encounter Code(s): Z51.5 - ENCOUNTER FOR PALLIATIVE CARE Current Visit: Yes Status: Acute (2) Cardiac arrest Code(s): I46.9 - CARDIAC ARREST, CAUSE UNSPECIFIED Current Visit: Yes Status : Acute (3) Anemia of chronic disease Code(s): D63.8 - ANEMIA IN OTHER CHRONIC DISEASES CLASSIFIED ELSEWHERE Current Visit: No Status: Chronic (4) CHF (congestive heart failure) Code(s): I50.9 - HEART FAILURE, UNSPECIFIED Current Visit: No Status: Chronic Qualifiers: Heart failure type: diastolic Heart failure chronicity: acute on chronic Qualified Code(s): I50.33 - Acute on chronic diastolic (congestive) heart failure (5) ESRD (end stage renal disease) on dialysis Code(s): N18.6 - END STAGE RENAL DISEASE; Z99.2 - DEPENDENCE ON RENAL DIALYSIS Current Visit: No Status: Chronic (6) Obesity (BMI 30-39.9) Code(s): E66.9 - OBESITY, UNSPECIFIED Current Visit: No Status: Chronic (7) Type 2 diabetes mellitus Current Visit: No Status: Chronic (8) Vision loss of left eye Code(s): H54.62 - UNQUALIFIED VISUAL LOSS, LEFT EYE, NORMAL VISION RIGHT EYE Current Visit: No Status: Chronic - Plan/Recommendations Plan: Conversation with patient spouse Luis. Short life review. Mrs Ness has been 34 years. Two children Guido 30 who has two children (Boy and girl) and Son Luis Mckeon 24 who has one son. The grandchildren call Mrs Grover Carrera. Mr Ness appears to have lack of understanding of complexity of renal and cardiac disease and implications of non compliance. Discussed resuscitation status. Currently he desires for all aggressive measures to continue. Palliative Care will attempt to revisit with Mrs Ness and address Directive to Physician when she is able. Palliative care will further continue to offer support to family and provide education in relation to impact of non compliance on multiple morbidities. Communicated with Dr Alvarado [60] minutes spent on this encounter with >50% of the time in counseling and coordination of care. Thank you for this very appropriate consult.
[2020-03-28] MEDS ORDERED: Iopamidol 300 61% 100 ML VIAL FS ONE (13:38)
[2020-03-28] MEDS: Labetalol HCl 100 MG/20 ML VIAL SLOW IVP PRN (13:50)
--- NOTE | 2020-03-28 16:24 | SPC ---
PROCEDURE: Right upper extremity arteriovenous dialysis fistulogram and venogram Thrombolysis, mechanical thrombectomy, and VEGETABLE WASHING MACHINE OPERATOR of the arteriovenous graft and venous outflow PROVIDED CLINICAL HISTORY: End-stage renal disease and clotted right upper extremity arteriovenous dialysis fistula COMPARISON: None TECHNIQUE: After informed consent was obtained, patient was placed on the angiography table in supine position. Sonographic evaluation of the right upper extremity was performed demonstrating a thrombosed right upper extremity arteriovenous dialysis fistula/graft. The right upper extremity was meticulously prep ped and draped in usual sterile fashion. Skin and subcutaneous tissues were infiltrated with buffered 1% lidocaine for local anesthesia at the intended puncture sites. The fistula was accessed i n both the arterial and venous directions utilizing micropuncture technique, and 6 Russian vascular sheaths were placed. A 5 Russian glide catheter and 0.035 inch Bentson guidewire were advanced into the right axillary vein . Venogram was performed demonstrating severe focal stenosis at the venous anastomosis. A second 5 Russian glide catheter and 0.035 inch Bentson guidewire were advanced to the level of the arteriovenou s anastomosis. After multiple attempts, the catheter was unable to be advanced through the level of the arteriovenous anastomosis. A 0.035 inch Glidewire was also unable to be manipulated through the a rteriovenous anastomosis. However, flow was able to be obtained at the level of the arteriovenous anastomosis. 10 mL of a mixture consisting of 4 mg of recombinant TPA mixed with sterile water was injected throug hout the arteriovenous fistula. A 6 mm x 4 similar angioplasty balloon was placed over a 0.035 inch Bentson guidewire directed in the venous direction. Angioplasty was performed at the level of the main ous anastomosis with waist present within the angioplasty balloon. Angioplasty balloon did achieve full profile. VEGETABLE WASHING MACHINE OPERATOR was performed throughout the remainder of the dialysis graft. A 5 Russian Rk th rombectomy catheter was placed over a 0.035 inch Glidewire directed in the arterial direction. The Rk catheter was placed adjacent to the anastomosis, and the distal balloon was filled with dilut e contrast, and the Rk balloon catheter was withdrawn. This was repeated. Flow was reestablished within the fistula. However, the fistula rethrombosis.. Angioplasty as well as bench mechanic al thrombectomy with the Rk catheter were again performed. After multiple attempts, adequate flow within the fistula was unable to be reestablished. Procedure was terminated, and the catheters were removed. Hemostasis was achieved with direct pressur e. Patient tolerated the procedure well and without immediate consultation. Patient was transported to the ICU in stable condition. Fluoroscopy: Time-17.2 minutes Dose-4023 mGy centimeter squared IMPRESSION: Clotted right upper extremity arteriovenous dialysis fistula/graft. Thrombolysis, mechanical thrombec cholo, and VEGETABLE WASHING MACHINE OPERATOR were performed, but flow was unable to be reestablished within the fistula/graft.
--- NOTE | 2020-03-28 16:57 | PRG ---
DATE OF SERVICE: 03/28/2020 SUBJECTIVE: Julia Ness had narrowing of her complex last night as soon as she started dialysis for within 15 to 30 minutes afterwards. OBJECTIVE: VITAL SIGNS: Heart rates is 60 today. Blood pressure this afternoon is 153/83. She was hypertensive earlier. FiO2 is at 40%. LUNGS: Remarkable for coarse equal breath sounds. HEART: Regular rhythm. ABDOMEN: Soft. LABORATORY DATA: White count 2.9, hemoglobin 6.6, platelets 121. Electrolytes are unremarkable. Creatinine is 3.52. Potassium was 3.4. IMPRESSION: 1. Wide-complex tachycardia associated with hyperkalemia. 2. ? Flecainide toxicity aggravating this situation with elevated potassium. 3. Respiratory failure. If she has a stable night, then we will consider weaning and extubation in the morning. Critical care time 30 min. Job ID: [id number] MTDD
[2020-03-28] MEDS: Simvastatin 5 MG TAB PO SCH (21:25)
[2020-03-29] MEDS: Propofol 1,000 MG/100 ML VIAL IV PRN ×4 (02:54→23:04)
[2020-03-29 04:27] LABS: Band 3 % (5-11); Hemoglobin 6.6 g/dL (12.0-16.0); Lymphocytes 4 % (21-51); MDiff Complete? YES; Mean Corpuscular HGB CONC 31.4 g/dL (32.0-36.0); Mean Corpuscular Hemoglobin 28.6 pg (27.0-31.0); Mean Platelet Volume 9.1 fL (7.4-10.4); Monocytes 1 % (0-10); Neutrophil 92 % (42-75); Platelet Count 122 thou/uL (130-400); RBC Distribution Width 15.9 % (11.5-14.5); Red Blood Cell (RBC) Count 2.31 mill/uL (4.20-5.40); White Blood Cell (WBC) Count 2.5 thou/uL (4.8-10.8)
[2020-03-29 04:31] LABS: ALT (SGPT) 11 U/L (8-55); AST (SGOT) 17 U/L (5-34); Alkaline Phosphatase 438 U/L (40-110); Anion Gap 17 mmol/L (10-20); BUN (Urea Nitrogen) 25 mg/dL (9.8-20.1); Bilirubin, Total 0.4 mg/dL (0.2-1.2); Calc. Creatinine Clearance 19 mL/min (70-130); Calcium 6.8 mg/dL (7.8-10.44); Carbon Dioxide 28 mmol/L (22-29); Chloride 97 mmol/L (98-107); Estimated GFR-MDRD 9; Globulin 2.4 g/dL (2.4-3.5); Glucose 131 mg/dL (70-105); Magnesium 2.1 mg/dL (1.6-2.6); Potassium 4.2 mmol/L (3.5-5.1); Protein, Total 5.4 g/dL (6.0-8.3); Sodium 138 mmol/L (136-145)
[2020-03-29] MEDS: Piperacillin/Tazobactam 2.25 GM in Sodium Chloride 0.9% 100 ML IVPB SCH ×3 (05:37→20:43)
[2020-03-29] MEDS: niCARdipine 25 MG in Sodium Chloride 0.9% 250 ML 240 ML IVPB SCH ×2 (06:42→18:53)
--- NOTE | 2020-03-29 07:30 | CON ---
DATE OF CONSULTATION: 03/28/2020 HISTORY OF PRESENT ILLNESS: I am seeing Ms. Ness at our [facility] as an electrophysiology wardrobe image consultant in the ICU. Her problems are: 1. Cardiac arrest out of hospital requiring resuscitation CPR for 4 minutes. a. Recurrent ventricular tachycardia with repeat cardioversion en route and in the ER. b. Synchronized ventricular tachycardia nonsustained noted in December 2019. 2. Paroxysmal atrial fibrillation, on chronic flecainide therapy, managed at [facility]. 3. End-stage renal disease, on hemodialysis. 4. History of CHF with preserved LVEF. a. 2D echo from 03/28/2020 shows LVEF 50% to 55%, mildly dilated left atrium, mild LVH, diastolic dysfunction, [id number] aortic stenosis, mild tricuspid regurgitation. Pacer wires in the right-sided chambers. 5. History of bradycardia, status post dual-chamber [employer] pacemaker in place by the LV and RV pacing thresholds. 6. History of mild coronary artery disease by prior workup. 7. History of diabetes and hyperlipidemia. ALLERGIES: IODINE. MEDICATIONS: At home include: 1. Renvela. 2. Apresoline. 3. Zocor. 4. Eliquis. 5. Flecainide 50 mg twice a day. SUBJECTIVE: Ms. Ness was found by EMS yesterday. She was noted to be in VFib, defibrillation and resuscitation was performed throughout 4 minutes by EMS. In ER recurrent ventricular tachycardia episodes were noted and again received further defibrillation. She remained unresponsive in the ER and eventually was admitted to [facility] ICU. She remains intubated. She was noted to have a markedly widened QRS on her EKG. Rapid wide complex runs were also seen consistent with VT. Transient IV amiodarone bolus and drip was administered. Her potassium was initally normal on admit @ 4.7, but later measured at 6.9.Eventually, dialysis was initiated through a newly placed hemodialysis catheter. After dialysis, her QRS normalized. Currently more stable rhythm marroquin and hemodynamically post dialysis. No current angina is documented. Also history obtained from chart as she has been in intubated state. Rest of 12-point review of system otherwise unremarkable. PAST MEDICAL HISTORY: As above. The patient has been monitored at [facility]. She is treated with flecainide low dosage for paroxysmal atrial fibrillation. She has a dual-chamber pacemaker in place. She has history of hysterectomy. Recent hospitalization was noted in December with nonsustained ventricular tachycardia episodes prompting amiodarone use at that time. SOCIAL HISTORY: No smoking, EtOH, or drug abuse. FAMILY HISTORY: Not contributory. OBJECTIVE DATA: VITAL SIGNS: Blood pressure is 153/83, heart rate 60, and respirations 10. GENERAL: Reveals intubated, poorly responsive woman, in no apparent distress. NECK: Supple. CHEST: Coarse without crackles. HEART: Heart sounds are regular to rate and rhythm. Left precordial pacemaker insertion site is well healed. ABDOMEN: Benign. Bowel sounds are positive. EXTREMITIES: Lower extremities without edema, clubbing, or cyanosis. Pulses are adequate. NEUROLOGIC: The patient is nonfocal. MUSCULOSKELETAL: Without joint swelling or deformity. SKIN: Without rash. DATABASE: EKG is reviewed from 03/27/2020 at 06:23 a.m. It was atrioventricular paced rhythm with marked widened QRS at 280 milliseconds. Subsequent EKG reveals 5:17 a.m. even further widening of the QRS, possible paced rhythm at a rate of 80 beats per minute. Reviewed the interrogation of pacemaker, is a [employer] dual-chamber device revealing adequate battery voltage, mild elevated ventricular pacing threshold, atrial fibrillation episodes are noted. Slow ventricular tachycardia is noted during the atrial fibrillation corresponding to the admission date. 2D echo results were reviewed from 03/28/2020 demonstrating normal LVEF, mild as noted above. LABORATORY DATA: White cell count 2.9, hemoglobin 6.6, and platelet count is 121, in contrast to white cell count 13, hemoglobin 9.3 and platelet count 203 on the day before. Sodium 141, potassium 3.4, BUN is 18, creatinine 3.52. The potassium shows 4.7, then 6.9, then 3.4. Telemetry strips reviewed, revealing widely paced rhythm with normalized AV conduction, atrial pacing noted after hemodialysis. ASSESSMENT AND PLAN: Ms. Ness is an unfortunate 54-year-old woman with history of end-stage renal disease, paroxysmal atrial fibrillation, diastolic heart failure, who has history of ventricular arrhythmias. In the past, she had atrial fibrillation episodes, which were managed with flecainide. Now, she is presenting with cardiac arrest, was resuscitated on the field. She required multiple cardioversions for recurrent ventricular tachycardia. Marked electrolyte abnormalities were noted during this stay. Potassium was initially normal @ 4.7 but later luis up to 6.9, which improved post hemodialysis. Her marked acidosis also improved. Ventricular arrhythmia seems to have dissipated post dialysis and amiodarone. . 1. At this point, she is still intubated, we need to observe her neurological recovery. Supportive measures are to continue. 2. Ventricular arrhythmias have improved after hemodialysis. Keep potassium levels in normal range. 3. Paroxysmal atrial fibrillation suppressed with flecainide. Continue anticoagulation, possibly with Lovenox or IV heparin. 4. Future plan will depend on recovery of mental status improvement. She may be considered for upgrade her pacemaker to an ICD in view of her recurrent ventricular arrhythmias, Although electrolyte abnormalities and flecainde use was implicated, future ventricular arrhythmia arrest is also posible in this lady with significant renal dysfunction and current cardiac arrest. 5. Paroxismal atrial fibrillationj. Hold flecainde. consider amiodarone vs PVAI if recurrence. We will follow with you. Thank you for the consult. Job ID: [id number] MTDD
--- NOTE | 2020-03-29 08:32 | CON ---
DATE OF CONSULTATION: 03/29/2020 SUBJECTIVE: Ms. Ness continues to do well. Her potassium was stable this morning. Her QRS is narrowed. She is paced. There is a planning on extubation today. OBJECTIVE: VITAL SIGNS: Blood pressure 130/79, pulse 60, and respirations 20. LUNGS: Clear to auscultation. HEART: Regular rate and rhythm. ABDOMEN: Soft, nontender, and nondistended. EXTREMITIES: No edema. PERTINENT LABORATORY DATA: Hemoglobin 6.6 and platelet count 122. Creatinine 5.09. IMPRESSION: 1. Hyperkalemia. 2. Wide QRS complex. 3. History of ventricular tachycardia. 4. End-stage renal disease. 5. Atrial fibrillation. RECOMMENDATIONS: Discussed case with Dr. Sebastian Patterson. Certainly difficult case. She appeared to have a wide QRS complex, likely related to hyperkalemia and may have been exacerbated by flecainide. A flecainide level has been drawn and sent. May consider ICD placement due to previous history of ventricular tachycardia and recent demise. We will avoid flecainide therapy or any class 1C agents. May consider amiodarone above 54, she is young, but we will leave the discretion of her primary stone engraver and Dr. Patterson. Anemia to be addressed by a primary team. May need 1 unit of blood on dialysis. Job ID: [id number]
--- NOTE | 2020-03-29 08:35 | RAD ---
CHEST 1 VIEW PORTABLE: HISTORY: Respiratory insufficiency. COMPARISON: 03/28/2020. FINDINGS: Life support tubes and left ICD remain in place. Marked stable cardiomegaly. Evidence for small gold ateral pleural effusions an some bilateral vascular congestion with increased parenchymal markings in the perihilar and infrahilar regions bilaterally. IMPRESSION: Stable cardiomegaly and vascular congestion and increased markings bilaterally with probable small pl eural effusions. POS: RRE
[2020-03-29 10:05] LABS: Vancomycin, Random 14.1 ug/mL (See Comment)
--- NOTE | 2020-03-29 10:38 | PDOC.EP ---
- Subjective Date: 03/29/20 Time: 08:00 Interval History: intubated but responsive. Not able to answer ROS yet - Review of Systems ROS unobtainable: due to endotracheal tube - Objective Allergies/Adverse Reactions: Allergies Allergy/AdvReac Type Severity Reaction Status Date / Time iodine Allergy Verified 01/14/20 07:39 Current Medications Dextrose/Water (Dextrose 50%) 25 gm IVP PRN PRN PRN Reason: HYPOGLYCEMIA PROTOCOL Glucagon (Glucagon) 1 mg IM PRN PRN PRN Reason: HYPOGLYCEMIA PROTOCOL Piperacillin Sod/Tazobactam (Sod 2.25 gm/ Sodium Chloride) 100 mls @ 200 mls/ hr IVPB Q8HR MICHELLE Last Admin: 03/29/20 05:37 Dose: 100 mls Fentanyl Citrate 2,000 mcg/ (Sodium Chloride) 100 mls @ 0 mls/hr IV INF MICHELLE; Protocol Stop: 04/26/20 09:52 Fentanyl Citrate (Fentanyl Bolus) 250 mls @ 0 mls/hr IVPB PRN PRN PRN Reason: Breakthrough pain/agitation Stop: 04/26/20 09:52 Vancomycin HCl 1.25 gm/ Sodium (Chloride) 250 mls @ 166.667 mls/hr IVPB WILLCALL MICHELLE Vancomycin HCl 1 gm/ Device 200 mls @ 200 mls/hr IVPB WILLCALL MICHELLE Vancomycin HCl 750 mg/ Sodium (Chloride) 250 mls @ 250 mls/hr IVPB WILLCALL MICHELLE Vancomycin HCl 500 mg/ Sodium (Chloride) 100 mls @ 100 mls/hr IVPB WILLCALL MICHELLE Norepinephrine Bitartrate (Levophed) 250 mls @ 0 mls/hr IVPB PRN PRN; Protocol PRN Reason: To maintain MAP > 65 Nicardipine HCl 25 mg/ Sodium (Chloride) 250 mls @ 0 mls/hr IVPB INF MICHELLE; Protocol Last Admin: 03/29/20 06:42 Dose: 250 mls Dextrose/Water (D5w) 1,000 mls @ 0 mls/hr IV .Q0M PRN PRN Reason: Hypoglycemia Insulin Human Lispro (Humalog) 0 units SC .MILD SLIDING SCALE PRN PRN Reason: Mild Correctional Scale Labetalol HCl (Normodyne) 10 mg SLOW IVP Q4H PRN PRN Reason: BP > 180/110 Last Admin: 03/28/20 13:50 Dose: 10 mg Lorazepam (Ativan) 2 mg SLOW IVP Q1H PRN PRN Reason: Breakthrough agitation Stop: 04/26/20 09:52 Last Admin: 03/28/20 01:35 Dose: 2 mg Miscellaneous Medication (Pharmacy To Dose) 1 each IVPB PRN PRN PRN Reason: Pharmacy to dose Miscellaneous Medication (Pharmacy To Dose) 1 each PO PRN PRN PRN Reason: Pharmacy to dose Morphine Sulfate (Morphine) 2 mg SLOW IVP Q1H PRN PRN Reason: Breakthrough Pain/Agitation Stop: 04/26/20 09:52 Hold Vancomycin For (Level >20) 0 each FS .AT DIALYSIS MICHELLE Propofol (Diprivan) 1,000 mg IV INF PRN; Protocol PRN Reason: TO ACHIEVE GOAL RASS Stop: 04/26/20 09:52 Last Admin: 03/29/20 06:14 Dose: 1,000 mg Propofol (Diprivan Bolus) 20 mg IV Q5MIN PRN PRN Reason: BREAKTHROUGH AGITATION Stop: 04/26/20 09:52 Sevelamer Carbonate (Renvela) mg PO TID-WM MICHELLE Simvastatin (Zocor) 10 mg PO HS MICHELLE Last Admin: 03/28/20 21:25 Dose: 10 mg Sodium Chloride (Flush - Normal Saline) 10 ml IVF Q12HR MICHELLE Last Admin: 03/28/20 21:26 Dose: 10 ml Sodium Chloride (Flush - Normal Saline) 10 ml IVF PRN PRN PRN Reason: Saline Flush Sodium Chloride (Flush - Normal Saline) 10 ml IVF PRN PRN PRN Reason: Saline Flush Vital Signs & Weight: Vital Signs Temp Pulse Resp BP Pulse Ox 03/29/20 10:00 11 L 03/29/20 09:00 98 03/29/20 08:00 99.0 F 13 100 03/29/20 07:28 60 139/84 03/29/20 06:00 10 L 03/29/20 04:00 98.7 F 10 L 03/29/20 02:32 97 03/29/20 02:23 60 134/80 03/29/20 02:00 10 L 03/29/20 00:00 98.6 F 10 L 03/28/20 22:44 60 Admit Weight 207 lb Weight 210 lb 5.136 oz I/O: I/O 09/01/20 09/02/20 09/03/20 06:59 06:59 06:59 Intake Total 1542 1067.6 Output Total 15 65 0 Balance 1527 1002.6 0 - Quality Measures Condition: Atrial Fibrillation/Flutter (hx or current) CV meds: Eliquis: Yes (on hold) - Physical Exam General: no apparent distress, other (intubated) HEENT: mucus membranes moist, normocephaly Neck: supple neck, midline trachea, no JVD/HJR, no lymphadenopathy Cardiology: regular rate and rhythm, PMI nondisplaced Lungs: clear to auscultation, normal breath sounds, no wheeze, rales, rhonchi, ventilated respirations Neurology: cranial nerve 2-12 intact, grossly intact, no lateralizing findings Abdomen: active bowel sounds, soft, no masses, HJR negative Extremities: dry, strong pulses, warm Skin: device site stable w/o swelling. negative: drainage, erosion - Labs Result Diagrams: 03/29/20 03:43 03/29/20 03:43 - EKG Interpretation EKG Method: Telemetry EKG shows: Sinus rhythm - Device Device: dual, pacemaker Device Result: [facility] [employer] - Assessment/Plan Assessment/Plan: 1. Cardiac arrest out of hospital requiring resuscitation CPR for 4 minutes. a. Recurrent ventricular tachycardia with repeat cardioversion en route and in the ER. b. Synchronized ventricular tachycardia nonsustained noted in December 2019. 2. Paroxysmal atrial fibrillation, on chronic flecainide therapy, managed at [facility]. 3. End-stage renal disease, on hemodialysis. 4. History of CHF with preserved LVEF. a. 2D echo from 03/28/2020 shows LVEF 50% to 55%, mildly dilated left atrium, mild LVH, diastolic dysfunction, [id number] aortic stenosis, mild tricuspid regurgitation. Pacer wires in the right-sided chambers. 5. History of sinus node dysfunction, status post dual-chamber [employer] pacemaker this year -with elevated RA and RV thresholds. 6. History of mild coronary artery disease by prior workup. 7. History of diabetes and hyperlipidemia. Rhythm status has been stable overnight off flecainide. Will continue to monitor. There was concern for flecainide toxicity but seeing her arrhythmia corrected with HD, this is not likely the issue as Flecainide is not dialyzed off. Still, given her recent cardiac arrest I would refrain from futher flecainide use. Given her recent arrest and recurrent VT I feel she would benefit from upgrade to dual chamber ICD. I've spoken with her who is in full agreement and consent to upgrade at any time. Today she is anemic and receiving a transfusion , also about to go down for HD cath. Possibly extubating in the near future. Will make arrangements, likely Friday around noon.
[2020-03-29] MEDS ORDERED: Heparin 10,000 UNITS/ 10 ML VIAL ONE ×2 (11:17→15:40)
--- NOTE | 2020-03-29 12:28 | PRG ---
DATE OF SERVICE: 03/29/2020 SUBJECTIVE: The patient was seen in ICU and she remains intubated and I talked with the bedside nurse. OBJECTIVE: GENERAL: This is a well-built female, in ICU, intubated. VITAL SIGNS: Temperature 99.0, pulse 60, respiratory rate 11, blood pressure 130/78. HEENT: Intubated. CV: S1 and S2, heard. RESPIRATORY: Clear. GI: Abdomen is soft. MUSCULOSKELETAL: No tenderness. No edema. DERMATOLOGIC: No skin rash. NEUROLOGIC: Intubated. LABORATORY DATA: Potassium 4.2, BUN is 25, and creatinine is 5.08. ASSESSMENT: 1. End-stage renal disease. We will continue dialysis on Friday, Friday, and Friday. Dr. Zuniga is planning to put a tunneled dialysis catheter, and the patient might need a new access placed by the surgeon of her choice, we will talk to her. 2. Hyperkalemia. 3. Clotted dialysis access. Plan to have a tunneled dialysis catheter. 4. Acute hypoxic respiratory failure. 5. Hypertension. 6. Anemia. 7. Will have dialysis today. Job ID: [id number]
--- NOTE | 2020-03-29 13:18 | PDOC.HOSPP ---
- Subjective Encounter Date: 03/29/20 Encounter Time: 07:25 Subjective: no overnight events. this morning, intubated and sedated, responsive to voice and command. Telemetry showing sinus. Cardiology, CVS, PCCM, Nephrology, palliative onboard, consulted EP for additional recommendations. - Objective Vital Signs & Weight: Vital Signs (12 hours) Temp Pulse Resp BP Pulse Ox 03/29/20 10:00 11 L 03/29/20 09:00 98 03/29/20 08:00 99.0 F 13 100 03/29/20 07:28 60 139/84 03/29/20 06:00 10 L 03/29/20 04:00 98.7 F 10 L 03/29/20 02:32 97 03/29/20 02:23 60 134/80 03/29/20 02:00 10 L Weight Admit Weight 207 lb Weight 210 lb 5.136 oz Most Recent Monitor Data Heart Rate from ECG 60 NIBP 131/78 NIBP BP-Mean 95 Respiration from ECG 11 SpO2 98 I&O: 03/28/20 03/29/20 03/30/20 06:59 06:59 06:59 Intake Total 1542 1067.6 Output Total 15 65 0 Balance 1527 1002.6 0 Result Diagrams: 03/29/20 03:43 03/29/20 03:43 Additional Labs: Accuchecks 03/28/20 03/28/20 03/28/20 23:54 21:30 06:04 POC Glucose 141 H 148 H 79 Hospitalist ROS - Review of Systems ROS unobtainable: due to endotracheal tube - Medication Medications: Active Medications Generic Name Dose Route Start Last Admin Trade Name Freq PRN Reason Stop Dose Admin Piperacillin Sod/Tazobactam 100 mls @ 200 mls/hr 03/27/20 14:00 03/29/20 05: 37 Sod 2.25 gm/ Sodium Chloride IVPB 100 mls Q8HR MICHELLE Administration Nicardipine HCl 25 mg/ Sodium 250 mls @ 0 mls/hr 03/27/20 22:15 03/29/20 06: 42 Chloride IVPB 250 mls INF MICHELLE Administration Protocol Titrate Labetalol HCl 10 mg 03/27/20 10:26 03/28/20 13:50 Normodyne SLOW IVP 10 mg Q4H PRN Administration BP > 180/110 Lorazepam 2 mg 03/27/20 09:52 03/28/20 01:35 Ativan SLOW IVP 04/26/20 09:52 2 mg Q1H PRN Administration Breakthrough agitation Morphine Sulfate 2 mg 03/27/20 09:52 03/29/20 11:40 Morphine SLOW IVP 04/26/20 09:52 2 mg Q1H PRN Administration Breakthrough Pain/Agitation Propofol 1,000 mg 03/27/20 09:52 03/29/20 12:09 Diprivan IV 04/26/20 09:52 1,000 mg INF PRN Administration TO ACHIEVE GOAL RASS Protocol Simvastatin 10 mg 03/28/20 21:00 03/28/20 21:25 Zocor PO 10 mg HS MICHELLE Administration Sodium Chloride 10 ml 03/27/20 21:00 03/29/20 11:40 Flush - Normal Saline IVF 10 ml Q12HR MICHELLE Administration - Exam General - other findings: intuabted and sedated. responds to voice and palpation Eye: PERRL, anicteric sclera ENT: moist mucosa Heart: RRR, no gallops Heart - other findings: sinus overnight on telemetry with rare PVCs Respiratory: CTAB, no wheezes, no rales, no ronchi Gastrointestinal: soft, non-distended, normal bowel sounds Extremities: 1+ LE edema Psychiatric - other findings: awake, responds to voice and palpation Hosp A/P (1) Cardiac arrest Code(s): I46.9 - CARDIAC ARREST, CAUSE UNSPECIFIED Status: Acute (2) Pulseless electrical activity Code(s): I46.9 - CARDIAC ARREST, CAUSE UNSPECIFIED Status: Acute (3) CHF (congestive heart failure) Code(s): I50.9 - HEART FAILURE, UNSPECIFIED Status: Chronic Qualifiers: Heart failure type: diastolic Heart failure chronicity: acute on chronic Qualified Code(s): I50.33 - Acute on chronic diastolic (congestive) heart failure (4) ESRD (end stage renal disease) on dialysis Code(s): N18.6 - END STAGE RENAL DISEASE; Z99.2 - DEPENDENCE ON RENAL DIALYSIS Status: Chronic (5) PAF (paroxysmal atrial fibrillation) Code(s): I48.0 - PAROXYSMAL ATRIAL FIBRILLATION Status: Chronic (6) Type 2 diabetes mellitus Status: Chronic - Plan #s/p Cardiac arrest #s/p PEA #Vtach #acute respiratory failure requiring intubation currently sinus; HD stable;intuabted and sedated Flecanaide level pending; cardiology and EP onboard PCCM onboard #Infectious CXR rotated to right, b/l perihilar densities likely pulmonary congestion; Respiratory culture many WBCs with gram -ve diplococci and gram negatives, grossly increased procalcitonin --> continue antibiotics pending finalization; unlikely UTI but covered by antibiotics #ESRD on HD nephrology and CVS onboard; New tunneled catheter access pending; apixaban held; defer to nephro/CVS #HFpEF BNP grossly elevated; unknown if patient missed dialysis prior to presentation but pending echo #T2DM BG q6h; hypoglycemia protocol; feeding as per PCCM; mild sliding scale #p. afib apixaban held pending dialysis-related interventions; defer to neprho/CVS Dispo/ppx Full code. palliative onboard GI PPx: Pantoprazole IVP q24h DVT PPx: started heparin subq pending resumption of apixaban
[2020-03-29] MEDS: Heparin 5,000 UNITS/ML VIAL SC SCH ×2 (15:08→20:42)
[2020-03-29] MEDS ORDERED: Propofol 500 MG/50 ML VIAL ONE (15:34)
[2020-03-29] MEDS ORDERED: Fentanyl 100 MCG/2 ML VIAL ONE (15:34)
[2020-03-29] MEDS ORDERED: Lidocaine 2% w/Epinephrine 1:200K 20 ML VIAL ONE (15:40)
[2020-03-29] MEDS ORDERED: Bupivacaine PF 0.5% 30 ML VIAL ONE (15:40)
[2020-03-29] MEDS ORDERED: Sodium Chloride 0.9% 10 ML ONE (15:40)
[2020-03-29] MEDS ORDERED: Lidocaine 1% w/Epinephrine 1:100K 20 ML VIAL ONE (15:42)
[2020-03-29] MEDS ORDERED: Propofol 1,000 MG/100 ML VIAL IV ONE (16:17)
--- NOTE | 2020-03-29 17:32 | RAD ---
Exam: Chest one view HISTORY:Central line placement Comparison: 03/29/2020 at 4:54 AM FINDINGS: Lines and tubes: Redemonstration of endotracheal tube, just proximal to the madeline. Nasogastric tube extends beyond the diaphragm. Interval placement of a right-sided HemoSplit dialysis catheter. Distal projects over the cavoatrial junction.. Cardiac silhouette:Cardiomegaly Aorta: Unremarkable Pulmonary vessels: Normal Costophrenic angles: Bilateral pleural effusions. LUNGS: Bibasilar lung parenchymal opacities due to edema or infiltrate. Pneumothorax: None Osseous abnormalities: None IMPRESSION: 1. Congestive heart failure. 2. Lines and tubes as above. Consider repositioning of the endotracheal tube.
[2020-03-29] MEDS: Vancomycin HCl 750 MG in Sodium Chloride 0.9% 250 ML 250 ML IVPB SCH (18:36)
--- NOTE | 2020-03-29 19:54 | PRG ---
DATE OF SERVICE: 03/29/2020 SUBJECTIVE: Ms. Ness was waiting for a tunneled catheter today. She went to the OR late this afternoon. OBJECTIVE: VITAL SIGNS: Heart rate 60, blood pressure 146/92, respiratory rate is in the teens. LUNGS: Clear. HEART: Regular rhythm. ABDOMEN: Soft. EXTREMITIES: Without asymmetry. LABORATORY DATA: White count 2.5, hemoglobin 6.6, platelets 122. Sodium 138, potassium 4.2, chloride 97, bicarb 28, BUN 25, creatinine 5.08. IMPRESSION: 1. End-stage renal disease. 2. Wide-complex tachycardia associated with hyperkalemia. She is tentatively now on a schedule for upgraded defibrillator placement. 3. She will remain mechanically ventilated for now. Job ID: [id number]
[2020-03-29] MEDS: Simvastatin 5 MG TAB PO SCH (20:43)
[2020-03-29] MEDS: Lorazepam 2 MG/ML VIAL SLOW IVP PRN (22:26)
--- NOTE | 2020-03-29 22:36 | OP ---
DATE OF PROCEDURE: 03/29/2020 PREOPERATIVE DIAGNOSES: Thrombosed dialysis graft, right arm (placed elsewhere); previous dialysis access graft, left arm with stenting of left subclavian vein/axillary vein; pacemaker, left subclavian, EP planning exchange for defibrillator due to ventricular fibrillation, ventricular tachycardia episodes. ANESTHESIA: General, local 0.5% Marcaine 30 mL, mixed with 1% Xylocaine with epinephrine 20 mL. PROCEDURE PERFORMED: Placement of right IJ cuffed tunneled hemodialysis catheter, AngioDynamics pre-curved, ultrasound fluoroscopy use. Of note, there was some outflow obstruction, but with manipulation, the J-wire fed the SVC. DESCRIPTION OF PROCEDURE: Patient was taken to the operating room, where under general anesthesia (patient mechanically ventilated preoperatively), her neck and chest prepared with ChloraPrep and draped in routine fashion, local anesthetic infiltrated in the skin and subcutaneous tissue about the operative site. Ultrasound guidance was used to cannulate the right internal jugular vein and J-wire threaded with some manipulation into the SVC. Trocar catheter removed. Skin site enlarged sharply, stab incision was made over the right chest. Using a tunneling device, pre-curved AngioDynamics cuffed tunneled hemodialysis catheter tunneled between 2 incisions, placed a fabric cuff beneath the skin exit site and catheter secured with 2 interrupted suture of 3-0 nylon, sterile dressing applied. Small and medium size dilators placed with J-wire and the IJ removed. Dilator and Peel-Away sheath placed over the J-wire into the SVC and J-wire and dilator removed, catheter placed with Peel-Away sheath. Peel-Away sheath removed. Each port aspirated blood, flushed with saline solution and then heparinized saline solution 1000 units of heparin per mL, indicating volume in the port. Platysma was approximated with 4-0 Monocryl, skin and subdermal with 4-0 Monocryl and [place] glue applied. Fluoroscopic images revealed good line placement. Job ID: [id number]
[2020-03-30 04:09] LABS: ALT (SGPT) 10 U/L (8-55); AST (SGOT) 14 U/L (5-34); Alkaline Phosphatase 387 U/L (40-110); Anion Gap 16 mmol/L (10-20); BUN (Urea Nitrogen) 17 mg/dL (9.8-20.1); Bilirubin, Total 0.3 mg/dL (0.2-1.2); Calc. Creatinine Clearance 28 mL/min (70-130); Calcium 7.4 mg/dL (7.8-10.44); Carbon Dioxide 27 mmol/L (22-29); Chloride 100 mmol/L (98-107); Estimated GFR-MDRD 14; Globulin 2.4 g/dL (2.4-3.5); Glucose 80 mg/dL (70-105); Potassium 3.4 mmol/L (3.5-5.1); Protein, Total 5.4 g/dL (6.0-8.3); Sodium 140 mmol/L (136-145)
[2020-03-30 04:20] LABS: Anisocytosis SLIGHT = 6-15 cells (100X) (0-5/hpf); Band 10 % (5-11); Hemoglobin 6.1 g/dL (12.0-16.0); Lymphocytes 15 % (21-51); MDiff Complete? YES; Mean Corpuscular HGB CONC 32.8 g/dL (32.0-36.0); Mean Corpuscular Hemoglobin 30.3 pg (27.0-31.0); Mean Corpuscular Volume 92.3 fL (78.0-98.0); Mean Platelet Volume 8.9 fL (7.4-10.4); Monocytes 1 % (0-10); Neutrophil 74 % (42-75); Platelet Count 105 thou/uL (130-400); Platelet Morphology Comment Appears Decreased; RBC Distribution Width 15.9 % (11.5-14.5); Red Blood Cell (RBC) Count 2.02 mill/uL (4.20-5.40); White Blood Cell (WBC) Count 2.6 thou/uL (4.8-10.8)
[2020-03-30] MEDS: Piperacillin/Tazobactam 2.25 GM in Sodium Chloride 0.9% 100 ML IVPB SCH ×3 (05:06→20:19)
[2020-03-30] MEDS: Propofol 1,000 MG/100 ML VIAL IV PRN (05:06)
--- NOTE | 2020-03-30 08:00 | RAD ---
EXAM: Single view of the chest HISTORY: Respiratory failure COMPARISON: 03/29/2020 FINDINGS: Single view of the chest shows an enlarged but stable cardiomediastinal silhouette. The li shay and tubes are unchanged in position. The tip of endotracheal tube is still approximately 1 cm from the madeline. The pacemaker is unchanged in position. Retrocardiac opacity may represent atelecta sis or an infiltrate. No acute osseous abnormality. IMPRESSION: Stable exam
[2020-03-30] MEDS: Pantoprazole 40 MG VIAL IVP SCH (08:18)
[2020-03-30] MEDS: Heparin 5,000 UNITS/ML VIAL SC SCH ×3 (08:18→20:14)
[2020-03-30] MEDS: Labetalol HCl 100 MG/20 ML VIAL SLOW IVP PRN ×3 (08:20→17:32)
[2020-03-30 08:34] LABS: Base Excess (BEa) 3.6 mEq/L (-2.0 to +3.0); CO2 Tension 48.5 mmHg (35.0-45.0); Calcium, Ionized (arterial) 0.97 mmol/L (1.12-1.30); Carboxyhemoglobin (COHb) 0.7 gm% (0.0-3.0); Hemoglobin (Hb) 7.3 g/dL (12.0-16.0); Potassium - ABG Lab 3.36 mmol/L (3.70-5.30); pH, Arterial 7.39 (7.35-7.45)
[2020-03-30 08:52] LABS: O2 Tension (PaO2), arterial 33.6 mmHg (80.0-100.0)
[2020-03-30 08:53] LABS: ALV-art Gradient -22.925 (0-20); Puncture Site RRA
--- NOTE | 2020-03-30 09:32 | PDOC.HOSPP ---
- Subjective Encounter Date: 03/30/20 Encounter Time: 08:00 Subjective: no overnight events. Telemetry showing episodic paced wide complex rhythm. Currently regular narrow complex. Awake, alert, following commands. - Objective Vital Signs & Weight: Vital Signs (12 hours) Temp Pulse Resp BP Pulse Ox 03/30/20 08:55 60 19 100 03/30/20 08:22 60 03/30/20 08:20 60 195/105 H 03/30/20 08:00 14 03/30/20 06:00 10 L 03/30/20 05:00 98.1 F 03/30/20 04:00 10 L 03/30/20 02:22 60 140/78 03/30/20 02:00 10 L 03/30/20 00:00 98.0 F 10 L 03/29/20 22:47 60 131/77 03/29/20 22:00 10 L Weight Admit Weight 207 lb Weight 196 lb 6.91 oz Most Recent Monitor Data Heart Rate from ECG 60 NIBP 193/106 NIBP BP-Mean 135 Respiration from ECG 12 SpO2 100 I&O: 03/29/20 03/30/20 03/31/20 06:59 06:59 06:59 Intake Total 1067.6 1333.2 Output Total 65 75 Balance 1002.6 1258.2 Result Diagrams: 03/30/20 03:00 03/30/20 03:00 Additional Labs: Accuchecks 03/29/20 03/29/20 03/29/20 23:42 19:40 18:35 POC Glucose 86 102 103 03/29/20 03/28/20 03/28/20 10:17 17:29 11:17 POC Glucose 135 H 131 H 87 Hospitalist ROS - Review of Systems ROS unobtainable: due to endotracheal tube - Medication Medications: Active Medications Generic Name Dose Route Start Last Admin Trade Name Freq PRN Reason Stop Dose Admin Heparin Sodium (Porcine) 5,000 units 03/29/20 15:00 03/30/20 08:18 Heparin SC Not Given TID MICHELLE Piperacillin Sod/Tazobactam 100 mls @ 200 mls/hr 03/27/20 14:00 03/30/20 05: 06 Sod 2.25 gm/ Sodium Chloride IVPB 100 mls Q8HR MICHELLE Administration Vancomycin HCl 750 mg/ Sodium 250 mls @ 250 mls/hr 03/27/20 11:45 03/29/20 18 :36 Chloride IVPB 250 mls WILLCALL MICHELLE Administration Nicardipine HCl 25 mg/ Sodium 250 mls @ 0 mls/hr 03/27/20 22:15 03/29/20 18: 53 Chloride IVPB 250 mls INF MICHELLE Administration Protocol Titrate Labetalol HCl 10 mg 03/27/20 10:26 03/30/20 08:20 Normodyne SLOW IVP 10 mg Q4H PRN Administration BP > 180/110 Lorazepam 2 mg 03/27/20 09:52 03/29/20 22:26 Ativan SLOW IVP 04/26/20 09:52 2 mg Q1H PRN Administration Breakthrough agitation Morphine Sulfate 2 mg 03/27/20 09:52 03/29/20 11:40 Morphine SLOW IVP 04/26/20 09:52 2 mg Q1H PRN Administration Breakthrough Pain/Agitation Pantoprazole Sodium 40 mg 03/30/20 09:00 03/30/20 08:18 Protonix IVP 40 mg DAILY MICHELLE Administration Propofol 1,000 mg 03/27/20 09:52 03/30/20 05:06 Diprivan IV 04/26/20 09:52 1,000 mg INF PRN Administration TO ACHIEVE GOAL RASS Protocol Simvastatin 10 mg 03/28/20 21:00 03/29/20 20:43 Zocor PO 10 mg HS MICHELLE Administration Sodium Chloride 10 ml 03/27/20 21:00 03/30/20 08:19 Flush - Normal Saline IVF 10 ml Q12HR MICHELLE Administration - Exam General Appearance: NAD, awake alert ENT: moist mucosa Heart: RRR, no murmur, no gallops, no rubs Heart - other findings: paced narrow complex Respiratory: CTAB, no wheezes, no rales, no ronchi Gastrointestinal: soft, non-tender, normal bowel sounds Extremities: no edema Neurological - other findings: following commands Hosp A/P (1) Cardiac arrest Code(s): I46.9 - CARDIAC ARREST, CAUSE UNSPECIFIED Status: Acute (2) Pulseless electrical activity Code(s): I46.9 - CARDIAC ARREST, CAUSE UNSPECIFIED Status: Acute (3) CHF (congestive heart failure) Code(s): I50.9 - HEART FAILURE, UNSPECIFIED Status: Chronic Qualifiers: Heart failure type: diastolic Heart failure chronicity: acute on chronic Qualified Code(s): I50.33 - Acute on chronic diastolic (congestive) heart failure (4) ESRD (end stage renal disease) on dialysis Code(s): N18.6 - END STAGE RENAL DISEASE; Z99.2 - DEPENDENCE ON RENAL DIALYSIS Status: Chronic (5) PAF (paroxysmal atrial fibrillation) Code(s): I48.0 - PAROXYSMAL ATRIAL FIBRILLATION Status: Chronic (6) Type 2 diabetes mellitus Status: Chronic - Plan #s/p Cardiac arrest #s/p PEA #Vtach #acute respiratory failure requiring intubation currently narrow complex EP pending upgrade of AICD (03/31) #Acute on chronic normocytic anemia #pancytopenia likely due to vascular procedures and ESRD; HgB stable -1 x PRBC -repeat H&H #Infectious CXR rotated to right, b/l perihilar densities likely pulmonary congestion; Respiratory culture many WBCs with gram -ve diplococci and gram negatives, grossly increased procalcitonin --> continue antibiotics pending finalization; #ESRD on HD last HD 03/29; K 3.4; defer to nephrology nephrology and CVS onboard; R IJ placed (03/29) apixaban held; defer to nephro/Cardiology #Diastolic dysfunction BNP grossly elevated; unknown if patient missed dialysis prior to presentation Echo showing 1/3 diastolic dysfunction #T2DM BG q6h; hypoglycemia protocol; feeding as per PCCM; mild sliding scale #p. afib apixaban held; defer to neprho/cardiology Dispo/ppx Full code. palliative onboard GI PPx: Pantoprazole IVP q24h DVT PPx: started heparin subq pending resumption of apixaban
--- NOTE | 2020-03-30 14:10 | PRG ---
DATE OF SERVICE: 03/30/2020 SUBJECTIVE: Ms. Ness sounds doing well day. Her hemodynamics are stable. She awakens quickly. OBJECTIVE: VITAL SIGNS: She is afebrile, respiratory rate in the teens, heart rate 60, blood pressure 185/104. LUNGS: Clear. HEART: Regular rhythm. ABDOMEN: Soft. EXTREMITIES: Without edema. LABORATORY DATA: Hemoglobin was 6.1. It will be up to Nephrology to decide to give her blood with dialysis. Sodium 140, potassium 3.4, chloride 100, bicarb 27, BUN 17, creatinine 3.5. IMPRESSION: 1. Respiratory failure. 2. Volume overload and wide-complex tachycardia with hyperkalemia. I felt she was a candidate for extubation successfully. PH is 7.39, CO2 of 48, PO2 is 33, but it is a venous gas accidentally. Oximetry is in the high 90s to 100% range. Job ID: [id number]
--- NOTE | 2020-03-30 15:07 | PRG ---
DATE OF SERVICE: 03/30/2020 SUBJECTIVE: Patient was seen and examined at bedside and overnight events noted. Patient denies any shortness of breath or chest pain or palpitation. No history of nausea or vomiting or diarrhea or fever or chills or cramps. OBJECTIVE: GENERAL: This is a well-built female, in no apparent distress. VITAL SIGNS: Temperature 97.6. Heart rate 60. Respiratory rate 16. Blood pressure 152/78. HEENT: Atraumatic, normocephalic. Oral mucosa is moist. NECK: Supple. CARDIOVASCULAR: S1, S2 heard. Rate and rhythm regular. RESPIRATORY: Clear to auscultation. GASTROINTESTINAL: Abdomen is soft. MUSCULOSKELETAL: No tenderness. No edema. DERMATOLOGIC: No skin rash. NEUROLOGIC: Alert and awake and oriented x3. No focal neurologic deficits. Moving all the extremities. PSYCHIATRIC: Mood and affect normal. LABORATORY DATA: Hemoglobin is 6.1. Potassium 3.4, BUN is 17, and creatinine is 3.5. ASSESSMENT AND PLAN: 1. End-stage renal disease. We will continue dialysis on Friday, Friday, and Friday. 2. Anemia of chronic disease. We will add Epogen with dialysis. The patient is getting 1 unit today. If hemoglobin remains less than 7 tomorrow, we will give another unit with dialysis. Recheck hemoglobin. 3. Hypertension. 4. Edema, controlled. The patient got extubated today. We will monitor closely. Agree with transfusion. We will follow. Job ID: [id number]
[2020-03-30] MEDS ORDERED: Losartan 25 MG TAB PO SCH (15:45)
[2020-03-30 17:38] LABS: Hemoglobin 7.9 g/dL (12.0-16.0)
[2020-03-30] MEDS: Simvastatin 5 MG TAB PO SCH (20:15)
[2020-03-30] MEDS: hydrALAZINE 20 MG/ML VIAL SLOW IVP PRN (20:18)
[2020-03-31] MEDS: hydrALAZINE 20 MG/ML VIAL SLOW IVP PRN ×2 (01:32→17:26)
[2020-03-31 05:00] LABS: ALT (SGPT) 10 U/L (8-55); AST (SGOT) 16 U/L (5-34); Alkaline Phosphatase 384 U/L (40-110); Anion Gap 16 mmol/L (10-20); BUN (Urea Nitrogen) 26 mg/dL (9.8-20.1); Bilirubin, Total 0.5 mg/dL (0.2-1.2); Calc. Creatinine Clearance 18 mL/min (70-130); Calcium 7.1 mg/dL (7.8-10.44); Carbon Dioxide 25 mmol/L (22-29); Chloride 98 mmol/L (98-107); Estimated GFR-MDRD 9; Globulin 2.5 g/dL (2.4-3.5); Glucose 73 mg/dL (70-105); Potassium 3.4 mmol/L (3.5-5.1); Protein, Total 5.5 g/dL (6.0-8.3); Sodium 136 mmol/L (136-145)
[2020-03-31 05:06] LABS: Hemoglobin 7.3 g/dL (12.0-16.0); Hypochromia SLIGHT = 6-15 cells (100X) (0-5/hpf); Lymphocytes 15 % (21-51); MDiff Complete? YES; Mean Corpuscular HGB CONC 32.4 g/dL (32.0-36.0); Mean Corpuscular Hemoglobin 29.6 pg (27.0-31.0); Mean Corpuscular Volume 91.6 fL (78.0-98.0); Monocytes 7 % (0-10); Neutrophil 78 % (42-75); Platelet Count 125 thou/uL (130-400); Platelet Morphology Comment Appears Adequate; RBC Distribution Width 15.2 % (11.5-14.5); Red Blood Cell (RBC) Count 2.45 mill/uL (4.20-5.40); White Blood Cell (WBC) Count 3.8 thou/uL (4.8-10.8)
[2020-03-31] MEDS: Piperacillin/Tazobactam 2.25 GM in Sodium Chloride 0.9% 100 ML IVPB SCH (05:09)
--- NOTE | 2020-03-31 07:24 | PRG ---
DATE OF SERVICE: 03/30/2020 TIME OF VISIT: 0815 hours. SUBJECTIVE: Ms. Ness has been well overnight. She has not had any arrhythmias. She remains significantly anemic and plan is for transfusion today. There is also plan for extubation. Her blood pressure has remained high. This is being managed with IV labetalol until p.o. medications can be initiated. OBJECTIVE: GENERAL: Intubated and mildly sedated. HEENT: Head is atraumatic and normocephalic. Mucous membranes are moist. NECK: Supple with no JVD or bruits noted. CHEST: Clear bilaterally. CARDIOVASCULAR: Regular rate and rhythm with normal S1 and S2. ABDOMEN: Soft, nontender to palpation, nondistended. EXTREMITIES: Show no clubbing, cyanosis, or edema. SKIN: Warm and dry. LABORATORY DATA: Reviewed. Unremarkable other than anemia and potassium 3.4. IMPRESSION: 1. Out of hospital arrest. 2. Sustained ventricular tachycardia. 3. History of paroxysmal atrial fibrillation. 4. Status post dual-chamber pacemaker placement. At this time, the patient remained stable. Plan is for upgrade to ICD potentially tomorrow. Other than the need for transfusion, no recommendation at this time. Job ID: [id number]
--- NOTE | 2020-03-31 08:12 | RAD ---
EXAM: Single view of the chest HISTORY: Respiratory failure COMPARISON: 03/30/2020 FINDINGS: Single view of the chest shows an enlarged but stable cardiomediastinal silhouette. The di alysis catheter and pacemaker are unchanged in position. The NG tube and endotracheal tube have been removed. There are small bilateral pleural effusions. No acute osseous abnormality. IMPRESSION: Cardiomegaly and small bilateral pleural effusions.
[2020-03-31] MEDS ORDERED: Losartan 25 MG TAB PO SCH ×2 (09:00→18:00)
[2020-03-31 09:12] LABS: Vancomycin, Random 13.3 ug/mL (See Comment)
[2020-03-31] MEDS ORDERED: PROPOFOL 200 MG/20 ML VIAL ONE (09:20)
[2020-03-31] MEDS ORDERED: Ondansetron PF 4 MG/2 ML Vial ONE (09:20)
[2020-03-31] MEDS ORDERED: Lidocaine 1% PF 5 ML VIAL ONE (09:20)
[2020-03-31] MEDS: Heparin 5,000 UNITS/ML VIAL SC SCH ×2 (10:57→16:09)
[2020-03-31] MEDS: Pantoprazole 40 MG VIAL IVP SCH (10:58)
[2020-03-31] MEDS ORDERED: Heparin 10,000 UNITS/ 10 ML VIAL ONE (11:07)
[2020-03-31] MEDS: EPOETIN ALFA-EPBX (ESRD) 10,000 UNIT/ML VIAL IVP SCH (11:37)
[2020-03-31] MEDS: Vancomycin HCl 750 MG in Sodium Chloride 0.9% 250 ML 250 ML IVPB SCH (12:11)
[2020-03-31] MEDS ORDERED: Ketamine 50 MG/ML (10ML VIAL) ONE (12:27)
--- NOTE | 2020-03-31 12:31 | PRG ---
DATE OF SERVICE: 03/31/2020 SUBJECTIVE: Patient was seen and examined at bedside and overnight events noted. Patient denies any shortness of breath or chest pain or palpitation. No history of nausea or vomiting or diarrhea or fever or chills or cramps. OBJECTIVE: GENERAL: This is a well-built female, in no apparent distress. VITAL SIGNS: Temperature 98.4. Heart Rate 60. Respiratory rate 18. Blood pressure 175/88. HEENT: Atraumatic, normocephalic. Oral mucosa is moist. NECK: Supple. CARDIOVASCULAR: S1, S2 heard. Rate and rhythm regular. RESPIRATORY: Clear to auscultation. GASTROINTESTINAL: Abdomen is soft. MUSCULOSKELETAL: No tenderness. No edema. DERMATOLOGIC: No skin rash. NEUROLOGIC: Alert and awake and oriented x3. No focal neurologic deficits. Moving all the extremities. PSYCHIATRIC: Mood and affect normal. LABORATORY DATA: Potassium is 3.4, BUN is 26, creatinine is 5.01. ASSESSMENT AND PLAN: 1. End-stage renal disease. Continue on hemodialysis on Friday, Friday, and Friday. 2. Anemia of chronic disease. 3. History of hypertension. 4. Edema, controlled. Continue Epogen, dialysis. We will use 4K bath. Continue dialysis on Friday, Friday, and Friday. Job ID: [id number]
--- NOTE | 2020-03-31 13:10 | PDOC.HOSPP ---
- Subjective Encounter Date: 03/31/20 Encounter Time: 08:30 Subjective: Extubated overnight, breathing and satting well on 3L NC. This morning, complains of midsternal pain that is tender. otherwise no complaints. Pending AICD placement - Objective Vital Signs & Weight: Vital Signs (12 hours) Temp Pulse BP Pulse Ox 03/31/20 08:00 100 03/31/20 07:00 98.4 F 03/31/20 03:00 98.5 F 03/31/20 01:32 60 199/108 H Weight Admit Weight 207 lb Weight 201 lb 0.985 oz Most Recent Monitor Data Heart Rate from ECG 60 NIBP 168/90 NIBP BP-Mean 116 Respiration from ECG 4 SpO2 100 I&O: 03/30/20 03/31/20 04/01/20 06:59 06:59 06:59 Intake Total 1333.2 1106.7 450 Output Total 75 400 0 Balance 1258.2 706.7 450 Result Diagrams: 03/31/20 03:30 03/31/20 03:30 Additional Labs: Accuchecks 03/31/20 03/30/20 01:46 17:04 POC Glucose 79 98 Hospitalist ROS - Review of Systems Constitutional: denies: chills, sweats Respiratory: denies: cough, shortness of breath, pleuritic pain Cardiovascular: reports: chest pain. denies: palpitations, orthopnea, paroxysmal noc. dyspnea Gastrointestinal: denies: nausea, vomiting, abdominal pain - Medication Medications: Active Medications Generic Name Dose Route Start Last Admin Trade Name Freq PRN Reason Stop Dose Admin Epoetin Sergio-epbx 10,000 unit 03/31/20 09:00 03/31/20 11:37 Retacrit IVP 10,000 unit MWF MICHELLE Administration Heparin Sodium (Porcine) 5,000 units 03/29/20 15:00 03/31/20 10:57 Heparin SC 5,000 units TID MICHELLE Administration Hydralazine HCl 10 mg 03/30/20 15:44 03/31/20 01:32 Apresoline SLOW IVP 10 mg Q4H PRN Administration BP > 180/110 Vancomycin HCl 750 mg/ Sodium 250 mls @ 250 mls/hr 03/27/20 11:45 03/31/20 12 :11 Chloride IVPB 250 mls WILLCALL MICHELLE Administration Nicardipine HCl 25 mg/ Sodium 250 mls @ 0 mls/hr 03/27/20 22:15 03/29/20 18: 53 Chloride IVPB 250 mls INF MICHELLE Administration Protocol Titrate Labetalol HCl 10 mg 03/27/20 10:26 03/30/20 17:32 Normodyne SLOW IVP 10 mg Q4H PRN Administration BP > 180/110 Losartan Potassium 25 mg 03/31/20 09:00 03/31/20 10:57 Cozaar PO 25 mg DAILY MICHELLE Administration Pantoprazole Sodium 40 mg 03/30/20 09:00 03/31/20 10:58 Protonix IVP 40 mg DAILY MICHELLE Administration Simvastatin 10 mg 03/28/20 21:00 03/30/20 20:15 Zocor PO 10 mg HS MICHELLE Administration Sodium Chloride 10 ml 03/27/20 21:00 03/31/20 10:59 Flush - Normal Saline IVF 10 ml Q12HR MICHELLE Administration - Exam General Appearance: NAD, awake alert Neck: no JVD Heart: RRR, no murmur, no gallops, no rubs Heart - other findings: paced on telemetry; severe tenderness on midsternal palpation Respiratory: CTAB, no wheezes, no rales, no ronchi Gastrointestinal: soft, non-tender, non-distended, normal bowel sounds Extremities: 1+ LE edema Psychiatric: normal affect, normal behavior, A&O x 3 Hosp A/P (1) Cardiac arrest Code(s): I46.9 - CARDIAC ARREST, CAUSE UNSPECIFIED Status: Acute (2) Pulseless electrical activity Code(s): I46.9 - CARDIAC ARREST, CAUSE UNSPECIFIED Status: Acute (3) CHF (congestive heart failure) Code(s): I50.9 - HEART FAILURE, UNSPECIFIED Status: Chronic Qualifiers: Heart failure type: diastolic Heart failure chronicity: acute on chronic Qualified Code(s): I50.33 - Acute on chronic diastolic (congestive) heart failure (4) ESRD (end stage renal disease) on dialysis Code(s): N18.6 - END STAGE RENAL DISEASE; Z99.2 - DEPENDENCE ON RENAL DIALYSIS Status: Chronic (5) PAF (paroxysmal atrial fibrillation) Code(s): I48.0 - PAROXYSMAL ATRIAL FIBRILLATION Status: Chronic (6) Type 2 diabetes mellitus Status: Chronic - Plan #s/p Cardiac arrest #s/p PEA #Vtach #acute respiratory failure requiring intubation extubated (03/30) narrow paced on tele with occasional PVCs pending AICD upgrade #Acute on chronic normocytic anemia #pancytopenia likely due to vascular procedures and ESRD; HgB stable s/p 1xprbc -H&H; transfuse for > 7 #Infectious procalcitonin elevated but no signs or symptoms of infection; infectious workup -ve so far; repeat procalcitonin stopped cefepime; continue vanc pending procalc #ESRD on HD last HD 03/29; K 3.4; defer to nephrology nephrology and CVS onboard; R IJ placed (03/29) apixaban held; heparin subq started; defer to nephro/Cardiology s/p AICD placement #Diastolic dysfunction BNP grossly elevated; unknown if patient missed dialysis prior to presentation Echo showing 1/3 diastolic dysfunction repeat BNP #T2DM extubated; start diet after AICD with ACHS sliding #p. afib apixaban held; defer to neprho/cardiology Dispo/ppx Full code. palliative onboard GI PPx: change Pantoprazole IVP q24h to pantoprazole 40mg PO qd for GERD DVT PPx: started heparin subq pending resumption of apixaban
[2020-03-31] MEDS ORDERED: Dextrose 5% in Water 1,000 ML IV PRN (13:24)
[2020-03-31] MEDS ORDERED: Dextrose 50% Abboject 50 ML SYRINGE SLOW IVP PRN (13:24)
[2020-03-31] MEDS ORDERED: HumaLOG 300 UNITS/3 ML VIAL SC PRN (13:25)
[2020-03-31 13:28] LABS: Hemoglobin 8.8 g/dL (12.0-16.0)
[2020-03-31] MEDS ORDERED: Propofol 500 MG/50 ML VIAL ONE (14:08)
[2020-03-31] MEDS ORDERED: Lidocaine 1% (PF) 30 ML VIAL ONE ×2 (14:16→15:23)
[2020-03-31] MEDS ORDERED: Gentamicin 80 MG/2 ML VIAL ONE (14:27)
[2020-03-31] MEDS ORDERED: CEFAZOLIN 1 GM VIAL ONE (14:27)
[2020-03-31] MEDS ORDERED: Fentanyl 100 MCG/2 ML VIAL ONE (14:40)
[2020-03-31] MEDS ORDERED: PROPOFOL 20 ML ONE (15:33)
--- NOTE | 2020-03-31 16:36 | RAD ---
EXAM: CHEST ONE VIEW HISTORY: Defibrillator placement. COMPARISON: 03/31/2020 FINDINGS: Previously noted left subclavian cardiac pacemaking device has been replaced with a dual-lead left [place] bclavian AICD device. Cardiac silhouette remains in enlarged. Pulmonary vasculature is within normal limits. Tunneled right-sided hemodialysis catheter remains in place. There is increased densit y at the right lateral lung base which is likely related to an epicardial fat pad. Vascular stent again overlies the medial proximal left upper extremity. No other interval change. IMPRESSION: 1. Interval replacement of left subclavian AICD device without evidence of a pneumothorax or obvious pleural effusion. 2. Cardiomegaly.
[2020-03-31] MEDS: Sevelamer Carbonate 800 MG TAB PO SCH (17:00)
--- NOTE | 2020-03-31 18:49 | PRG ---
DATE OF SERVICE: 03/31/2020 SUBJECTIVE: Ms. Ness has done well. She went down for defibrillator placement today. She is afebrile, heart rate 60, respiratory rate 17, oximetry is 100%. She has been hypertensive mildly during the day. OBJECTIVE: LUNGS: Unchanged. HEART: Unchanged. ABDOMEN: Unchanged. IMPRESSION: 1. Status post respiratory failure requiring intubation. 2. Status post wide-complex tachycardia associated with hyperkalemia. 3. Status post defibrillator placement today. 4. Failed vascular access, status post placement of temporary access initially emergently in the tunneled catheter. She is stable postextubation. The postprocedure chest x-ray shows no pneumothorax. She is stable to be transferred out of the Critical Care Unit. We will sign off. Job ID: [id number]
[2020-03-31] MEDS: Simvastatin 5 MG TAB PO SCH (21:29)
[2020-03-31] MEDS: Apixaban 2.5 MG TAB PO SCH (21:45)
[2020-03-31] MEDS: ceFAZolin 1 GM/D5W 1 GM in Premix Bag 1 BAG IVPB SCH (22:25)
[2020-04-01] MEDS: ceFAZolin 1 GM/D5W 1 GM in Premix Bag 1 BAG IVPB SCH (06:32)
[2020-04-01 07:50] LABS: ALT (SGPT) 7 U/L (8-55); AST (SGOT) 17 U/L (5-34); Albumin 3.2 g/dL (3.5-5.0); Alkaline Phosphatase 408 U/L (40-110); Anion Gap 18 mmol/L (10-20); BUN (Urea Nitrogen) 15 mg/dL (9.8-20.1); Bilirubin, Total 0.4 mg/dL (0.2-1.2); Calc. Creatinine Clearance 21 mL/min (70-130); Calcium 7.7 mg/dL (7.8-10.44); Carbon Dioxide 26 mmol/L (22-29); Chloride 100 mmol/L (98-107); Estimated GFR-MDRD 12; Globulin 2.5 g/dL (2.4-3.5); Glucose 78 mg/dL (70-105); Potassium 4.1 mmol/L (3.5-5.1); Protein, Total 5.7 g/dL (6.0-8.3); Sodium 140 mmol/L (136-145)
[2020-04-01 08:24] LABS: Hemoglobin 8.1 g/dL (12.0-16.0); Mean Corpuscular HGB CONC 33.3 g/dL (32.0-36.0); Mean Corpuscular Volume 93.2 fL (78.0-98.0); Mean Platelet Volume 8.9 fL (7.4-10.4); Platelet Count 128 thou/uL (130-400); RBC Distribution Width 15.3 % (11.5-14.5); Red Blood Cell (RBC) Count 2.61 mill/uL (4.20-5.40); White Blood Cell (WBC) Count 4.1 thou/uL (4.8-10.8)
[2020-04-01] MEDS: Losartan 25 MG TAB PO SCH (09:13)
[2020-04-01] MEDS: Apixaban 2.5 MG TAB PO SCH ×2 (09:13→21:30)
[2020-04-01] MEDS: Sevelamer Carbonate 800 MG TAB PO SCH ×3 (09:13→16:29)
[2020-04-01] MEDS: Cephalexin 250 MG CAP PO SCH ×3 (09:13→21:33)
[2020-04-01 09:16] LABS: Anisocytosis SLIGHT = 6-15 cells (100X) (0-5/hpf); Eosinophils 1 % (0-10); Hypochromia SLIGHT = 6-15 cells (100X) (0-5/hpf); Lymphocytes 14 % (21-51); MDiff Complete? YES; Monocytes 3 % (0-10); Neutrophil 80 % (42-75); Platelet Morphology Comment Appears Decreased; Polychromasia SLIGHT = 2-3 cells (100X) (0-2/hpf)
--- NOTE | 2020-04-01 11:56 | PDOC.HOSPP ---
- Subjective Encounter Date: 04/01/20 Encounter Time: 09:45 Subjective: has chest dyscomfort, no sob has not ambulated yet - Objective Vital Signs & Weight: Vital Signs (12 hours) Temp Pulse Resp BP Pulse Ox 04/01/20 08:00 98.0 F 69 18 215/103 H 92 L 04/01/20 05:00 180/80 H 04/01/20 04:00 98.3 F 63 15 92 L Weight Admit Weight 207 lb Weight 179 lb 3.773 oz Most Recent Monitor Data Heart Rate from ECG 60 NIBP 168/90 NIBP BP-Mean 116 Respiration from ECG 4 SpO2 100 I&O: 03/31/20 04/01/20 04/02/20 06:59 06:59 06:59 Intake Total 1106.7 450 Output Total 400 0 Balance 706.7 450 Result Diagrams: 04/01/20 07:23 04/01/20 07:23 Additional Labs: Accuchecks 04/01/20 04/01/20 03/31/20 10:42 06:10 20:38 POC Glucose 91 81 84 03/31/20 03/31/20 17:53 12:57 POC Glucose 80 79 Hospitalist ROS - Medication Medications: Active Medications Generic Name Dose Route Start Last Admin Trade Name Freq PRN Reason Stop Dose Admin Apixaban 2.5 mg 03/31/20 21:00 03/31/20 21:45 Eliquis PO Not Given BID MICHELLE Cephalexin 250 mg 04/01/20 09:00 04/01/20 09:13 Keflex PO 04/07/20 21:01 250 mg TID MICHELLE Administration Epoetin Sergio-epbx 10,000 unit 03/31/20 09:00 03/31/20 11:37 Retacrit IVP 10,000 unit MWF MICHELLE Administration Losartan Potassium 50 mg 04/01/20 09:00 04/01/20 09:13 Cozaar PO 50 mg DAILY MICHELLE Administration Pantoprazole Sodium 40 mg 04/01/20 09:00 04/01/20 09:13 Protonix PO 40 mg DAILY MICHELLE Administration Sevelamer Carbonate 2,400 mg 03/28/20 08:00 04/01/20 09:13 Renvela PO 2,400 mg TID-WM MICHELLE Administration Simvastatin 10 mg 03/28/20 21:00 03/31/20 21:29 Zocor PO 10 mg HS MICHELLE Administration Sodium Chloride 10 ml 03/27/20 21:00 03/31/20 21:29 Flush - Normal Saline IVF 10 ml Q12HR MICHELLE Administration - Exam General Appearance: awake alert Eye: PERRL, anicteric sclera ENT: no oropharyngeal lesions, dry oral mucosa Neck: supple, no JVD Heart: RRR, no murmur Respiratory: no wheezes, no rales Gastrointestinal: soft, non-tender, non-distended, normal bowel sounds Extremities: no cyanosis, 1+ LE edema Neurological: cranial nerve grossly intact, no focal deficits Hosp A/P (1) Cardiac arrest Code(s): I46.9 - CARDIAC ARREST, CAUSE UNSPECIFIED Status: Acute (2) V-tach Code(s): I47.2 - VENTRICULAR TACHYCARDIA Status: Acute (3) Anemia of chronic disease Code(s): D63.8 - ANEMIA IN OTHER CHRONIC DISEASES CLASSIFIED ELSEWHERE Status : Chronic (4) CHF (congestive heart failure) Code(s): I50.9 - HEART FAILURE, UNSPECIFIED Status: Chronic Qualifiers: Heart failure type: diastolic Heart failure chronicity: acute on chronic Qualified Code(s): I50.33 - Acute on chronic diastolic (congestive) heart failure (5) ESRD (end stage renal disease) on dialysis Code(s): N18.6 - END STAGE RENAL DISEASE; Z99.2 - DEPENDENCE ON RENAL DIALYSIS Status: Chronic (6) HLD (hyperlipidemia) Code(s): E78.5 - HYPERLIPIDEMIA, UNSPECIFIED Status: Chronic (7) HTN (hypertension) Code(s): I10 - ESSENTIAL (PRIMARY) HYPERTENSION Status: Chronic Qualifiers: Hypertension type: essential hypertension Qualified Code(s): I10 - Essential (primary) hypertension (8) Obesity (BMI 30-39.9) Code(s): E66.9 - OBESITY, UNSPECIFIED Status: Chronic (9) PAF (paroxysmal atrial fibrillation) Code(s): I48.0 - PAROXYSMAL ATRIAL FIBRILLATION Status: Chronic (10) Type 2 diabetes mellitus Status: Chronic Qualifiers: Diabetes mellitus fpc insulin use: without fpc use (11) Vision loss of left eye Code(s): H54.62 - UNQUALIFIED VISUAL LOSS, LEFT EYE, NORMAL VISION RIGHT EYE Status: Chronic (12) Physical deconditioning Code(s): R53.81 - OTHER MALAISE Status: Acute - Plan s/p cardiac arrest with cpr of 4 minutes per records s/p aicd (03/31) with h/o prior pcm done for above is on eliquis, cozaar, renvela PT to mobilize as tolerated if cleared by cardio/ep ef of 50%, extubated on 03/30 hemostable is deconditioned, may need placement, await PT eval
[2020-04-01] MEDS ORDERED: Loperamide HCl 1 MG/7.5 ML UDCUP PO PRN (12:36)
[2020-04-01] MEDS: hydrALAZINE 20 MG/ML VIAL SLOW IVP PRN ×2 (12:38→21:34)
--- NOTE | 2020-04-01 14:21 | PRG ---
DATE OF SERVICE: 04/01/2020 SUBJECTIVE: Patient was seen and examined at bedside and overnight events noted. Patient denies any shortness of breath or chest pain or palpitation. No history of nausea or vomiting or diarrhea or fever or chills or cramps. OBJECTIVE: GENERAL: This is a well-built female, in no apparent distress. VITAL SIGNS: Temperature 98.3. Heart rate 63. Respiratory rate 18. Blood pressure 180/80. HEENT: Atraumatic, normocephalic. Oral mucosa is moist NECK: Supple. CARDIOVASCULAR: S1, S2 heard. Rate and rhythm regular. RESPIRATORY: Clear to auscultation. GASTROINTESTINAL: Abdomen is soft. MUSCULOSKELETAL: No tenderness. No edema. DERMATOLOGIC: No skin rash. NEUROLOGIC: Alert and awake and oriented X3. No focal neurologic deficits. Moving all the extremities. PSYCHIATRIC: Mood and affect normal. LABORATORY DATA: Potassium 4.1, BUN is 15, creatinine is 3.89. ASSESSMENT AND PLAN: 1. End-stage renal disease. Continue dialysis. 2. Anemia of chronic disease. 3. Hypertension. 4. Edema, controlled. 5. Plan to continue dialysis Friday, Friday, and Friday. Job ID: [id number]
--- NOTE | 2020-04-01 15:02 | PDOC.CPN ---
- Subjective Date: 04/01/20 Time: 15:12 Interval history: the pt seen and examined. No overnight events. No cardiac complaints. - Objective Allergies/Adverse Reactions: Allergies Allergy/AdvReac Type Severity Reaction Status Date / Time iodine Allergy Verified 01/14/20 07:39 Visit Medications: Current Medications Acetaminophen (Tylenol) 1,000 mg PO Q6H PRN PRN Reason: Moderate to Severe Pain (6-10) Acetaminophen/Codeine Phosphate (Tylenol #3) 1 tab PO Q4H PRN PRN Reason: Mild Pain (1-3) Acetaminophen/Codeine Phosphate (Tylenol #3) 2 tab PO Q4H PRN PRN Reason: Moderate Pain (4-6) Apixaban (Eliquis) 2.5 mg PO BID [facility] Last Admin: 04/01/20 09:13 Dose: Not Given Cephalexin (Keflex) 250 mg PO TID [facility] Stop: 04/07/20 21:01 Last Admin: 04/01/20 09:13 Dose: 250 mg Dextrose/Water (Dextrose 50%) 25 gm SLOW IVP PRN PRN PRN Reason: Hypoglycemia Epoetin Sergio-epbx (Retacrit) 10,000 unit IVP MWF [facility] Last Admin: 03/31/20 11:37 Dose: 10,000 unit Glucagon (Glucagon) 1 mg IM PRN PRN PRN Reason: Hypoglycemia Hydralazine HCl (Apresoline) 20 mg SLOW IVP Q6H PRN PRN Reason: BP > 180/110 Last Admin: 04/01/20 12:38 Dose: 20 mg Norepinephrine Bitartrate (Levophed) 250 mls @ 0 mls/hr IVPB PRN PRN; Protocol PRN Reason: To maintain MAP > 65 Dextrose/Water (D5w) 1,000 mls @ 0 mls/hr IV .Q0M PRN PRN Reason: Hypoglycemia Insulin Human Lispro (Humalog) 0 units SC .MILD SLIDING SCALE PRN PRN Reason: Mild Correctional Scale Loperamide HCl (Imodium) 1 mg PO Q4H PRN PRN Reason: Diarrhea/Loose Stools Losartan Potassium (Cozaar) 50 mg PO DAILY [facility] Last Admin: 04/01/20 09:13 Dose: 50 mg Hold Vancomycin For (Level >20) 0 each FS .AT DIALYSIS [facility] Pantoprazole Sodium (Protonix) 40 mg PO DAILY [facility] Last Admin: 04/01/20 09:13 Dose: 40 mg Sevelamer Carbonate (Renvela) 2,400 mg PO TID-WM [facility] Last Admin: 04/01/20 12:46 Dose: 2,400 mg Simvastatin (Zocor) 10 mg PO HS [facility] Last Admin: 03/31/20 21:29 Dose: 10 mg Sodium Chloride (Flush - Normal Saline) 10 ml IVF Q12HR [facility] Last Admin: 04/01/20 12:47 Dose: 10 ml Sodium Chloride (Flush - Normal Saline) 10 ml IVF PRN PRN PRN Reason: Saline Flush Sodium Chloride (Flush - Normal Saline) 10 ml IVF PRN PRN PRN Reason: Saline Flush Vital Signs & Weight: Vital Signs Temp Pulse Resp BP Pulse Ox 04/01/20 13:40 167/85 H 04/01/20 13:20 188/89 H 04/01/20 12:38 69 04/01/20 11:50 98.1 F 65 18 188/89 H 92 L 04/01/20 08:00 98.0 F 69 18 215/103 H 92 L 04/01/20 05:00 180/80 H 04/01/20 04:00 98.3 F 63 15 92 L Admit Weight 207 lb Weight 179 lb 3.773 oz - Physical Exam General: alert & oriented x3 HEENT: mucus membranes moist Neck: supple neck Cardiac: S1/S2 Lungs: decreased breath sounds Extremities: no edema - Labs Result Diagrams: 04/01/20 07:23 04/01/20 07:23 Troponin/CKMB CK-MB (CK-2) 1.6 ng/mL (0-6.6) 03/27/20 06:06 Troponin I 0.207 ng/mL (< 0.028) H 03/27/20 17:35 - Telemetry Sinus rhythms and dysrhythmias: sinus rhythm - Assessment/Plan Assessment/Plan: 1. s/p Out of hospital Cardiac recurrent arrest with CPR for 4 mins with s/p [facility] AICD upgrade on 03/31/2020 2. Parox Afib - remains in SR with 1st AVB; on Eliquis2.5mg BID; flecainide is off for now for possible flecainide toxicity; Will start Coreg 3. HTN - will start coreg 6.25mg BID 4. ESRD with HD 5. Hx of mild CAD 6. anemia with s/p 1 unit PRBC tx on 03/30/2020 7. HLD 8. DM type 2 MAR reviewed
[2020-04-01] MEDS ORDERED: Carvedilol 6.25 MG TAB PO SCH (15:15)
[2020-04-01] MEDS: Acetaminophen/Codeine 30-300mg Tablet PO PRN ×2 (16:21→21:35)
[2020-04-01] MEDS: Carvedilol 6.25 MG TAB PO SCH (21:32)
[2020-04-01] MEDS: Simvastatin 5 MG TAB PO SCH (21:33)
[2020-04-02] MEDS: Acetaminophen/Codeine 30-300mg Tablet PO PRN ×3 (04:42→21:52)
[2020-04-02 05:38] LABS: ALT (SGPT) Less than 7 U/L (8-55); AST (SGOT) 14 U/L (5-34); Albumin 3.3 g/dL (3.5-5.0); Alkaline Phosphatase 425 U/L (40-110); Anion Gap 18 mmol/L (10-20); BUN (Urea Nitrogen) 25 mg/dL (9.8-20.1); Bilirubin, Total 0.4 mg/dL (0.2-1.2); Calc. Creatinine Clearance 17 mL/min (70-130); Carbon Dioxide 27 mmol/L (22-29); Chloride 97 mmol/L (98-107); Estimated GFR-MDRD 9; Globulin 2.6 g/dL (2.4-3.5); Glucose 83 mg/dL (70-105); Potassium 3.8 mmol/L (3.5-5.1); Protein, Total 5.9 g/dL (6.0-8.3); Sodium 138 mmol/L (136-145)
[2020-04-02 05:47] LABS: Band 1 % (5-11); Hemoglobin 8.4 g/dL (12.0-16.0); Lymphocytes 8 % (21-51); MDiff Complete? YES; Mean Corpuscular HGB CONC 32.2 g/dL (32.0-36.0); Mean Corpuscular Hemoglobin 29.7 pg (27.0-31.0); Mean Corpuscular Volume 92.4 fL (78.0-98.0); Mean Platelet Volume 8.9 fL (7.4-10.4); Metamyelocyte 1 % (0-0); Monocytes 2 % (0-10); Neutrophil 88 % (42-75); Platelet Count 189 thou/uL (130-400); Platelet Morphology Comment Appears Adequate; RBC Distribution Width 15.4 % (11.5-14.5); RBC Morphology Normal; Red Blood Cell (RBC) Count 2.81 mill/uL (4.20-5.40); White Blood Cell (WBC) Count 6.1 thou/uL (4.8-10.8)
[2020-04-02] MEDS: Carvedilol 6.25 MG TAB PO SCH ×2 (08:55→21:47)
[2020-04-02] MEDS: Sevelamer Carbonate 800 MG TAB PO SCH ×4 (08:59→16:17)
[2020-04-02] MEDS: Cephalexin 250 MG CAP PO SCH ×3 (08:59→21:48)
[2020-04-02] MEDS: Losartan 25 MG TAB PO SCH (09:03)
--- NOTE | 2020-04-02 10:37 | PDOC.HOSPP ---
- Subjective Encounter Date: 04/02/20 Encounter Time: 09:15 Subjective: no sob, has pain in her chest from cpr has ambulated in room with rw - Objective Vital Signs & Weight: Vital Signs (12 hours) Temp Pulse Resp BP BP Pulse Ox 04/02/20 08:55 140/69 04/02/20 04:00 62 18 177/80 H 04/02/20 03:24 98.4 F 60 14 197/93 H 95 Weight Admit Weight 207 lb Weight 196 lb 3.382 oz Most Recent Monitor Data Heart Rate from ECG 60 NIBP 168/90 NIBP BP-Mean 116 Respiration from ECG 4 SpO2 100 I&O: 04/01/20 04/02/20 04/03/20 06:59 06:59 06:59 Intake Total 450 250 Output Total 0 1 Balance 450 249 Result Diagrams: 04/02/20 04:40 04/02/20 04:40 Additional Labs: Accuchecks 04/02/20 04/01/20 04/01/20 05:19 20:51 17:24 POC Glucose 93 83 85 04/01/20 10:42 POC Glucose 91 Hospitalist ROS - Medication Medications: Active Medications Generic Name Dose Route Start Last Admin Trade Name Freq PRN Reason Stop Dose Admin Acetaminophen/Codeine Phosphate 1 tab 03/31/20 18:00 04/02/20 08:46 Tylenol #3 PO 1 tab Q4H PRN Administration Mild Pain (1-3) Apixaban 2.5 mg 03/31/20 21:00 04/01/20 21:30 Eliquis PO Not Given BID MICHELLE Carvedilol 6.25 mg 04/01/20 21:00 04/02/20 08:55 Coreg PO 6.25 mg BID MICHELLE Administration Cephalexin 250 mg 04/01/20 09:00 04/02/20 08:59 Keflex PO 04/07/20 21:01 250 mg TID MICHELLE Administration Epoetin Sergio-epbx 10,000 unit 03/31/20 09:00 03/31/20 11:37 Retacrit IVP 10,000 unit MWF MICHELLE Administration Hydralazine HCl 20 mg 03/31/20 17:51 04/01/20 21:34 Apresoline SLOW IVP 20 mg Q6H PRN Administration BP > 180/110 Loperamide HCl 1 mg 04/01/20 12:36 04/01/20 16:22 Imodium PO 1 mg Q4H PRN Administration Diarrhea/Loose Stools Losartan Potassium 50 mg 04/01/20 09:00 04/02/20 09:03 Cozaar PO 50 mg DAILY MICHELLE Administration Pantoprazole Sodium 40 mg 04/01/20 09:00 04/02/20 08:59 Protonix PO 40 mg DAILY MICHELLE Administration Sevelamer Carbonate 2,400 mg 03/28/20 08:00 04/02/20 09:00 Renvela PO 2,400 mg TID-WM MICHELLE Administration Simvastatin 10 mg 03/28/20 21:00 04/01/20 21:33 Zocor PO 10 mg HS MICHELLE Administration Sodium Chloride 10 ml 03/27/20 21:00 04/02/20 09:03 Flush - Normal Saline IVF 10 ml Q12HR MICHELLE Administration - Exam General Appearance: awake alert Eye: PERRL, anicteric sclera ENT: no oropharyngeal lesions, moist mucosa Neck: supple, no JVD Heart: RRR, no murmur Respiratory: no wheezes, no rales Gastrointestinal: soft, non-tender, non-distended, normal bowel sounds Extremities: no cyanosis, 1+ LE edema Neurological: cranial nerve grossly intact, no focal deficits Psychiatric: normal affect, A&O x 3 Hosp A/P (1) Cardiac arrest Code(s): I46.9 - CARDIAC ARREST, CAUSE UNSPECIFIED Status: Acute (2) V-tach Code(s): I47.2 - VENTRICULAR TACHYCARDIA Status: Acute (3) Anemia of chronic disease Code(s): D63.8 - ANEMIA IN OTHER CHRONIC DISEASES CLASSIFIED ELSEWHERE Status : Chronic (4) CHF (congestive heart failure) Code(s): I50.9 - HEART FAILURE, UNSPECIFIED Status: Chronic Qualifiers: Heart failure type: diastolic Heart failure chronicity: acute on chronic Qualified Code(s): I50.33 - Acute on chronic diastolic (congestive) heart failure (5) ESRD (end stage renal disease) on dialysis Code(s): N18.6 - END STAGE RENAL DISEASE; Z99.2 - DEPENDENCE ON RENAL DIALYSIS Status: Chronic (6) HLD (hyperlipidemia) Code(s): E78.5 - HYPERLIPIDEMIA, UNSPECIFIED Status: Chronic (7) HTN (hypertension) Code(s): I10 - ESSENTIAL (PRIMARY) HYPERTENSION Status: Chronic Qualifiers: Hypertension type: essential hypertension Qualified Code(s): I10 - Essential (primary) hypertension (8) Obesity (BMI 30-39.9) Code(s): E66.9 - OBESITY, UNSPECIFIED Status: Chronic (9) PAF (paroxysmal atrial fibrillation) Code(s): I48.0 - PAROXYSMAL ATRIAL FIBRILLATION Status: Chronic (10) Type 2 diabetes mellitus Status: Chronic Qualifiers: 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 is on eliquis, cozaar, renvela and coreg. HD on Mon/fri/frid PT to mobilize as tolerated ef of 50%, extubated on 03/30 hemostable is deconditioned, may need placement, await PT eval. Has started to mobilize from yesterday.
--- NOTE | 2020-04-02 13:48 | PRG ---
DATE OF SERVICE: 04/02/2020 SUBJECTIVE: Patient was seen and examined at bedside and overnight events noted. Patient denies any shortness of breath or chest pain or palpitation. No history of nausea or vomiting or diarrhea or fever or chills or cramps. OBJECTIVE: General: This is well-built female, in no apparent distress. Vital Signs: Temperature 98.3. Heart Rate 60. Respiratory rate 18. Blood pressure 154/79. HEENT: Atraumatic, normocephalic. Oral mucosa is moist. Neck: Supple. Cardiovascular: S1, S2 heard. Rate and rhythm regular. Respiratory: Clear to auscultation. Gastrointestinal: Abdomen is soft. Musculoskeletal: No tenderness. No edema. Dermatologic: No skin rash. Neurologic: Alert and awake and oriented x3. No focal neurologic deficits. Moving all the extremities. Psychiatric: Mood and affect normal. LABORATORY DATA: Potassium 3.8, BUN is 25, and creatinine is 5.2. ASSESSMENT AND PLAN: 1. End-stage renal disease. Continue on dialysis, Friday, Friday, and Friday. 2. Edema, controlled. 3. Hypertension. 4. Anemia, status post transfusion. Monitor hemoglobin. 5. Continue on dialysis, Friday, Friday, and Friday. Job ID: [id number]
--- NOTE | 2020-04-02 15:20 | PDOC.CPN ---
- Subjective Date: 04/02/20 Time: 15:22 Interval history: The pt seen and examined. No overnight events. No cardiac complaints. - Objective Allergies/Adverse Reactions: Allergies Allergy/AdvReac Type Severity Reaction Status Date / Time iodine Allergy Verified 01/14/20 07:39 Visit Medications: Current Medications Acetaminophen (Tylenol) 1,000 mg PO Q6H PRN PRN Reason: Moderate to Severe Pain (6-10) Acetaminophen/Codeine Phosphate (Tylenol #3) 1 tab PO Q4H PRN PRN Reason: Mild Pain (1-3) Last Admin: 04/02/20 08:46 Dose: 1 tab Acetaminophen/Codeine Phosphate (Tylenol #3) 2 tab PO Q4H PRN PRN Reason: Moderate Pain (4-6) Apixaban (Eliquis) 2.5 mg PO BID [facility] Last Admin: 04/01/20 21:30 Dose: Not Given Carvedilol (Coreg) 12.5 mg PO BID [facility] Carvedilol (Coreg) 6.25 mg PO NOW [facility] Cephalexin (Keflex) 250 mg PO TID [facility] Stop: 04/07/20 21:01 Last Admin: 04/02/20 08:59 Dose: 250 mg Dextrose/Water (Dextrose 50%) 25 gm SLOW IVP PRN PRN PRN Reason: Hypoglycemia Epoetin Sergio-epbx (Retacrit) 10,000 unit IVP [facility] [place] Last Admin: 03/31/20 11:37 Dose: 10,000 unit Glucagon (Glucagon) 1 mg IM PRN PRN PRN Reason: Hypoglycemia Hydralazine HCl (Apresoline) 20 mg SLOW IVP Q6H PRN PRN Reason: BP > 180/110 Last Admin: 04/01/20 21:34 Dose: 20 mg Dextrose/Water (D5w) 1,000 mls @ 0 mls/hr IV .Q0M PRN PRN Reason: Hypoglycemia Insulin Human Lispro (Humalog) 0 units SC .MILD SLIDING SCALE PRN PRN Reason: Mild Correctional Scale Loperamide HCl (Imodium) 1 mg PO Q4H PRN PRN Reason: Diarrhea/Loose Stools Last Admin: 04/01/20 16:22 Dose: 1 mg Losartan Potassium (Cozaar) 50 mg PO DAILY [facility] Last Admin: 09/06/20 09:03 Dose: 50 mg Hold Vancomycin For (Level >20) 0 each FS .AT DIALYSIS [facility] Pantoprazole Sodium (Protonix) 40 mg PO DAILY [facility] Last Admin: 04/02/20 08:59 Dose: 40 mg Sevelamer Carbonate (Renvela) 2,400 mg PO TID-WM [facility] Last Admin: 04/02/20 13:17 Dose: 2,400 mg Simvastatin (Zocor) 10 mg PO HS [facility] Last Admin: 04/01/20 21:33 Dose: 10 mg Sodium Chloride (Flush - Normal Saline) 10 ml IVF Q12HR [facility] Last Admin: 04/02/20 09:03 Dose: 10 ml Sodium Chloride (Flush - Normal Saline) 10 ml IVF PRN PRN PRN Reason: Saline Flush Sodium Chloride (Flush - Normal Saline) 10 ml IVF PRN PRN PRN Reason: Saline Flush Vital Signs & Weight: Vital Signs Temp Pulse Pulse Resp BP BP BP 04/02/20 11:55 98.3 F 60 19 04/02/20 10:37 60 136/74 194/88 H 04/02/20 08:55 140/69 04/02/20 07:08 98.6 F 60 16 04/02/20 04:00 62 18 04/02/20 03:24 98.4 F 60 14 BP Pulse Ox 04/02/20 11:55 154/79 H 92 L 04/02/20 10:37 04/02/20 08:55 04/02/20 07:08 140/69 90 L 04/02/20 04:00 177/80 H 04/02/20 03:24 197/93 H 95 Admit Weight 207 lb Weight 196 lb 3.382 oz - Physical Exam General: alert & oriented x3 HEENT: mucus membranes moist Neck: supple neck Cardiac: regular rate and rhythm, S1/S2 Lungs: decreased breath sounds Extremities: no edema - Labs Result Diagrams: 04/02/20 04:40 04/02/20 04:40 Troponin/CKMB CK-MB (CK-2) 1.6 ng/mL (0-6.6) 03/27/20 06:06 Troponin I 0.207 ng/mL (< 0.028) H 03/27/20 17:35 - Telemetry Sinus rhythms and dysrhythmias: sinus rhythm - Assessment/Plan Assessment/Plan: 1. s/p Out of hospital Cardiac recurrent arrest with CPR for 4 mins with s/p [facility] AICD upgrade on 03/31/2020 2. Parox Afib - remains in SR with 1st AVB; on Eliquis2.5mg BID; flecainide is off for now for possible flecainide toxicity; On Coreg 3. HTN - will increase Coreg from 6.25mg to 12.5mg BID 4. ESRD with HD on MWF 5. Hx of mild CAD 6. anemia with s/p 1 unit PRBC tx on 03/30/2020 7. HLD 8. DM type 2 MAR reviewed * Dr Cowart' pt * ? waiting for replacement? await PT eval.
[2020-04-02] MEDS ORDERED: Carvedilol 6.25 MG TAB PO SCH (15:30)
[2020-04-02] MEDS: Apixaban 2.5 MG TAB PO SCH ×2 (16:10→21:48)
[2020-04-02] MEDS: Simvastatin 5 MG TAB PO SCH (21:48)
[2020-04-02] MEDS: hydrALAZINE 20 MG/ML VIAL SLOW IVP PRN (23:48)
[2020-04-03] MEDS: Apixaban 2.5 MG TAB PO SCH ×3 (09:57→20:23)
[2020-04-03] MEDS: Cephalexin 250 MG CAP PO SCH ×3 (09:57→20:28)
[2020-04-03] MEDS: Acetaminophen 500 MG TAB PO PRN (09:58)
[2020-04-03] MEDS ORDERED: Heparin 10,000 UNITS/ 10 ML VIAL ONE (11:09)
--- NOTE | 2020-04-03 11:21 | PRG ---
DATE OF SERVICE: 04/03/2020 SUBJECTIVE: A 54-year-old female being seen for end-stage renal disease. The patient denies nausea, vomiting, or chest pain. OBJECTIVE: GENERAL: On exam, the patient is awake and alert. VITAL SIGNS: Afebrile, pulse 75, breathing at 16, and blood pressure 152/87. HEENT: Head normocephalic and atraumatic. Eyes intact, no ulcers. Nose intact, no ulcers. Ears intact, no ulcers. NECK: Supple. No JVD. CHEST: Symmetrical and clear. CARDIOVASCULAR: Shows S1 and S2, no rub, no murmur. GASTROINTESTINAL: Abdomen is soft, bowel sounds positive. EXTREMITIES: Show no edema or ulcers. SKIN: Shows no rash or petechiae. MUSCULOSKELETAL: Shows no joint swelling or stiffness. GENITOURINARY: Shows no Perea or CVA tenderness. NEUROLOGIC: Motor intact. Cranial nerves intact. LABORATORY DATA: Show hemoglobin 8.4. Creatinine 5.27. ASSESSMENT AND PLAN: 1. Stage 6 chronic kidney disease, stable. 2. Hypertension, stable. 3. Anemia, stable. Medications based on GFR are appropriate. Plan dialysis. Job ID: [id number]
--- NOTE | 2020-04-03 11:46 | PDOC.HOSPP ---
- Subjective Encounter Date: 04/03/20 Encounter Time: 09:45 Subjective: is getting HD, no sob no new complaints - Objective Vital Signs & Weight: Vital Signs (12 hours) Temp Pulse Resp BP BP Pulse Ox 04/03/20 09:57 98 F 60 18 158/87 H 98 04/03/20 03:34 98.3 F 60 15 176/83 H 98 04/03/20 01:39 94 L 04/02/20 23:48 60 177/87 H Weight Admit Weight 207 lb Weight 191 lb 12.835 oz Most Recent Monitor Data Heart Rate from ECG 60 NIBP 168/90 NIBP BP-Mean 116 Respiration from ECG 4 SpO2 100 I&O: 04/02/20 04/03/20 04/04/20 06:59 06:59 06:59 Intake Total 250 940 Output Total 1 Balance 249 940 Result Diagrams: 04/02/20 04:40 04/02/20 04:40 Additional Labs: Accuchecks 04/03/20 04/03/20 04/02/20 11:04 05:43 20:20 POC Glucose 87 100 121 H 04/02/20 16:43 POC Glucose 111 H Hospitalist ROS - Medication Medications: Active Medications Generic Name Dose Route Start Last Admin Trade Name Freq PRN Reason Stop Dose Admin Acetaminophen 1,000 mg 03/30/20 18:02 04/03/20 09:58 Tylenol PO 1,000 mg Q6H PRN Administration Moderate to Severe Pain (6-10) Acetaminophen/Codeine Phosphate 1 tab 03/31/20 18:00 04/02/20 21:52 Tylenol #3 PO 1 tab Q4H PRN Administration Mild Pain (1-3) Apixaban 2.5 mg 03/31/20 21:00 04/02/20 21:48 Eliquis PO Not Given BID MICHELLE Carvedilol 12.5 mg 04/02/20 21:00 04/02/20 21:47 Coreg PO 12.5 mg BID [facility] Administration Cephalexin 250 mg 04/01/20 09:00 04/03/20 09:57 Keflex PO 04/07/20 21:01 250 mg TID MICHELLE Administration Epoetin Sergio-epbx 10,000 unit 03/31/20 09:00 03/31/20 11:37 Retacrit IVP 10,000 unit MWF [facility] Administration Hydralazine HCl 20 mg 03/31/20 17:51 04/02/20 23:48 Apresoline SLOW IVP 20 mg Q6H PRN Administration BP > 180/110 Loperamide HCl 1 mg 04/01/20 12:36 04/01/20 16:22 Imodium PO 1 mg Q4H PRN Administration Diarrhea/Loose Stools Losartan Potassium 50 mg 04/01/20 09:00 04/02/20 09:03 Cozaar PO 50 mg DAILY [facility] Administration Pantoprazole Sodium 40 mg 04/01/20 09:00 04/03/20 09:57 Protonix PO 40 mg DAILY [facility] Administration Sevelamer Carbonate 2,400 mg 03/28/20 08:00 04/02/20 16:17 Renvela PO 2,400 mg TID-WM MICHELLE Administration Simvastatin 10 mg 03/28/20 21:00 04/02/20 21:48 Zocor PO 10 mg HS [facility]LE Administration Sodium Chloride 10 ml 03/27/20 21:00 04/02/20 21:48 Flush - Normal Saline IVF 10 ml Q12HR [facility]LE Administration - Exam General Appearance: awake alert Eye: PERRL, anicteric sclera ENT: no oropharyngeal lesions, moist mucosa Neck: supple, no JVD Heart: RRR, no murmur Respiratory: no wheezes, no rales Gastrointestinal: soft, non-tender, non-distended, normal bowel sounds Extremities: no cyanosis, no edema Neurological: cranial nerve grossly intact, no focal deficits Hosp A/P (1) Cardiac arrest Code(s): I46.9 - CARDIAC ARREST, CAUSE UNSPECIFIED Status: Acute (2) V-tach Code(s): I47.2 - VENTRICULAR TACHYCARDIA Status: Acute (3) Anemia of chronic disease Code(s): D63.8 - ANEMIA IN OTHER CHRONIC DISEASES CLASSIFIED ELSEWHERE Status : Chronic (4) CHF (congestive heart failure) Code(s): I50.9 - HEART FAILURE, UNSPECIFIED Status: Chronic Qualifiers: Heart failure type: diastolic Heart failure chronicity: acute on chronic Qualified Code(s): I50.33 - Acute on chronic diastolic (congestive) heart failure (5) ESRD (end stage renal disease) on dialysis Code(s): N18.6 - END STAGE RENAL DISEASE; Z99.2 - DEPENDENCE ON RENAL DIALYSIS Status: Chronic (6) HLD (hyperlipidemia) Code(s): E78.5 - HYPERLIPIDEMIA, UNSPECIFIED Status: Chronic (7) HTN (hypertension) Code(s): I10 - ESSENTIAL (PRIMARY) HYPERTENSION Status: Chronic Qualifiers: Hypertension type: essential hypertension Qualified Code(s): I10 - Essential (primary) hypertension (8) Obesity (BMI 30-39.9) Code(s): E66.9 - OBESITY, UNSPECIFIED Status: Chronic (9) PAF (paroxysmal atrial fibrillation) Code(s): I48.0 - PAROXYSMAL ATRIAL FIBRILLATION Status: Chronic (10) Type 2 diabetes mellitus Status: Chronic Qualifiers: Diabetes mellitus alf insulin use: without middle or intermediate school principal use (11) Vision loss of left eye Code(s): H54.62 - UNQUALIFIED VISUAL LOSS, LEFT EYE, NORMAL VISION RIGHT EYE Status: Chronic (12) Physical deconditioning Code(s): R53.81 - OTHER MALAISE Status: Acute - Plan s/p cardiac arrest with cpr of 4 minutes per records s/p aicd (03/31) with h/o prior pcm [facility]. is on eliquis, cozaar, renvela and coreg. HD on Mon/wed/frid PT to mobilize as tolerated ef of 50%, extubated on 03/30 hemostable is deconditioned, ambulated 20ft with help, will need placement to swing or rehab.
[2020-04-03] MEDS: Sevelamer Carbonate 800 MG TAB PO SCH ×4 (11:58→16:28)
[2020-04-03] MEDS: EPOETIN ALFA-EPBX (ESRD) 10,000 UNIT/ML VIAL IVP SCH (12:37)
[2020-04-03] MEDS: Losartan 25 MG TAB PO SCH (12:54)
[2020-04-03 12:55] VITALS: BMI 34.0
[2020-04-03] MEDS: Carvedilol 6.25 MG TAB PO SCH ×2 (12:55→20:28)
[2020-04-03] MEDS: hydrALAZINE 20 MG/ML VIAL SLOW IVP PRN (16:02)
[2020-04-03] MEDS: Acetaminophen/Codeine 30-300mg Tablet PO PRN (16:45)
--- NOTE | 2020-04-03 17:52 | PDOC.CPN ---
- Subjective Date: 04/03/20 Time: 17:51 Interval history: No new issues, she is doing well. - Review of Systems General: denies: fever/chills, weight/appetite/sleep changes, night sweats, fatigue Respiratory: denies: cough, congestion, shortness of breath, exercise intolerance Cardiovascular: denies: chest pain, palpitation, edema, paroxysmal nocturnal dyspnea, orthopnea Gastrointestinal: denies: nausea, vomiting, diarrhea, constipation, abd pain, GI bleeding Musculoskeletal: denies: pain, tenderness, stiffness, swelling, arthritis/ arthralgias Neurological: denies: numbness, syncope, seizure, weakness - Objective Allergies/Adverse Reactions: Allergies Allergy/AdvReac Type Severity Reaction Status Date / Time iodine Allergy Verified 01/14/20 07:39 Visit Medications: Current Medications Acetaminophen (Tylenol) 1,000 mg PO Q6H PRN PRN Reason: Moderate to Severe Pain (6-10) Last Admin: 04/03/20 09:58 Dose: 1,000 mg Acetaminophen/Codeine Phosphate (Tylenol #3) 1 tab PO Q4H PRN PRN Reason: Mild Pain (1-3) Last Admin: 04/03/20 16:45 Dose: 1 tab Acetaminophen/Codeine Phosphate (Tylenol #3) 2 tab PO Q4H PRN PRN Reason: Moderate Pain (4-6) Apixaban (Eliquis) 2.5 mg PO BID [facility] Last Admin: 04/03/20 13:55 Dose: Not Given Carvedilol (Coreg) 12.5 mg PO BID [facility] Last Admin: 04/03/20 12:55 Dose: 12.5 mg Cephalexin (Keflex) 250 mg PO TID [facility] Stop: 04/07/20 21:01 Last Admin: 04/03/20 16:13 Dose: 250 mg Dextrose/Water (Dextrose 50%) 25 gm SLOW IVP PRN PRN PRN Reason: Hypoglycemia Epoetin Sergio-epbx (Retacrit) 10,000 unit IVP [facility] [place] Last Admin: 04/03/20 12:37 Dose: 10,000 unit Glucagon (Glucagon) 1 mg IM PRN PRN PRN Reason: Hypoglycemia Hydralazine HCl (Apresoline) 20 mg SLOW IVP Q6H PRN PRN Reason: BP > 180/110 Last Admin: 04/03/20 16:02 Dose: 20 mg Dextrose/Water (D5w) 1,000 mls @ 0 mls/hr IV .Q0M PRN PRN Reason: Hypoglycemia Insulin Human Lispro (Humalog) 0 units SC .MILD SLIDING SCALE PRN PRN Reason: Mild Correctional Scale Loperamide HCl (Imodium) 1 mg PO Q4H PRN PRN Reason: Diarrhea/Loose Stools Last Admin: 04/01/20 16:22 Dose: 1 mg Losartan Potassium (Cozaar) 50 mg PO DAILY [facility] Last Admin: 04/03/20 12:54 Dose: 50 mg Hold Vancomycin For (Level >20) 0 each FS .AT DIALYSIS [facility] Pantoprazole Sodium (Protonix) 40 mg PO DAILY [facility] Last Admin: 04/03/20 09:57 Dose: 40 mg Sevelamer Carbonate (Renvela) 2,400 mg PO TID-WM [facility] Last Admin: 04/03/20 16:28 Dose: 2,400 mg Simvastatin (Zocor) 10 mg PO HS [facility] Last Admin: 04/02/20 21:48 Dose: 10 mg Sodium Chloride (Flush - Normal Saline) 10 ml IVF Q12HR [facility] Last Admin: 04/03/20 12:58 Dose: Not Given Sodium Chloride (Flush - Normal Saline) 10 ml IVF PRN PRN PRN Reason: Saline Flush Sodium Chloride (Flush - Normal Saline) 10 ml IVF PRN PRN PRN Reason: Saline Flush Vital Signs & Weight: Vital Signs Temp Pulse Pulse Pulse Resp BP BP 04/03/20 17:39 04/03/20 16:17 98.2 F 60 18 04/03/20 16:02 199/105 H 04/03/20 13:43 60 60 185/110 H 04/03/20 12:55 199/105 H 04/03/20 12:51 98.4 F 60 16 04/03/20 09:57 98 F 60 18 BP BP BP Pulse Ox 04/03/20 17:39 183/88 H 04/03/20 16:17 197/95 H 98 04/03/20 16:02 04/03/20 13:43 205/114 H 04/03/20 12:55 04/03/20 12:51 199/105 H 94 L 04/03/20 09:57 158/87 H 98 Admit Weight 207 lb 14.334 oz Weight 191 lb 12.835 oz - Physical Exam General: no apparent distress HEENT: mucus membranes moist Neck: supple neck Cardiac: regular rate and rhythm Lungs: normal breath sounds Neuro: no lateralizing findings Abdomen: active bowel sounds Extremities: no edema Skin: clear Musculoskeletal: no pain - Labs Result Diagrams: 04/02/20 04:40 04/02/20 04:40 Troponin/CKMB CK-MB (CK-2) 1.6 ng/mL (0-6.6) 03/27/20 06:06 Troponin I 0.207 ng/mL (< 0.028) H 03/27/20 17:35 - Telemetry Sinus rhythms and dysrhythmias: sinus rhythm - Assessment/Plan Assessment/Plan: 1. s/p Out of hospital Cardiac recurrent arrest. 2. Parox Afib 3. HTN 4. ESRD with HD on MWF 5. Hx of mild CAD 6. Anemia with s/p 1 unit PRBC tx on 03/30/2020 7. S/P AICD placement. PLAN: - CV stable. No new recs.
[2020-04-03 17:56] LABS: Hemoglobin 8.8 g/dL (12.0-16.0); Mean Corpuscular HGB CONC 33.2 g/dL (32.0-36.0); Mean Corpuscular Hemoglobin 30.6 pg (27.0-31.0); Mean Corpuscular Volume 92.1 fL (78.0-98.0); Mean Platelet Volume 9.4 fL (7.4-10.4); Platelet Count 166 thou/uL (130-400); RBC Distribution Width 15.9 % (11.5-14.5); Red Blood Cell (RBC) Count 2.86 mill/uL (4.20-5.40); White Blood Cell (WBC) Count 5.1 thou/uL (4.8-10.8)
[2020-04-03 17:57] LABS: ALT (SGPT) Less than 7 U/L (8-55); AST (SGOT) 13 U/L (5-34); Albumin 3.4 g/dL (3.5-5.0); Alkaline Phosphatase 441 U/L (40-110); Anion Gap 17 mmol/L (10-20); BUN (Urea Nitrogen) 14 mg/dL (9.8-20.1); Bilirubin, Total 0.5 mg/dL (0.2-1.2); Calc. Creatinine Clearance 26 mL/min (70-130); Carbon Dioxide 25 mmol/L (22-29); Chloride 98 mmol/L (98-107); Estimated GFR-MDRD 14; Globulin 2.7 g/dL (2.4-3.5); Glucose 93 mg/dL (70-105); Potassium 4.4 mmol/L (3.5-5.1); Protein, Total 6.1 g/dL (6.0-8.3); Sodium 136 mmol/L (136-145)
[2020-04-03 17:59] LABS: Anisocytosis SLIGHT = 6-15 cells (100X) (0-5/hpf); Eosinophils 1 % (0-10); Lymphocytes 5 % (21-51); MDiff Complete? YES; Metamyelocyte 1 % (0-0); Monocytes 5 % (0-10); Myelocyte 1 % (0-0); Neutrophil 86 % (42-75); Ovalocytes SLIGHT = 2-5 cells (100X) (0-1/hpf); Platelet Morphology Comment Appears Adequate; Polychromasia MODERATE = 3-4 cells (100X) (0-2/hpf)
[2020-04-03] MEDS: Simvastatin 5 MG TAB PO SCH (20:28)
[2020-04-04] MEDS: Acetaminophen/Codeine 30-300mg Tablet PO PRN ×2 (00:03→04:23)
[2020-04-04] MEDS: hydrALAZINE 20 MG/ML VIAL SLOW IVP PRN (00:03)
[2020-04-04] MEDS ORDERED: cloNIDine 0.1 MG TAB PO SCH (04:30)
[2020-04-04 06:18] LABS: ALT (SGPT) Less than 7 U/L (8-55); AST (SGOT) 11 U/L (5-34); Albumin 3.1 g/dL (3.5-5.0); Alkaline Phosphatase 415 U/L (40-110); Anion Gap 15 mmol/L (10-20); BUN (Urea Nitrogen) 20 mg/dL (9.8-20.1); Bilirubin, Total 0.5 mg/dL (0.2-1.2); Calc. Creatinine Clearance 20 mL/min (70-130); Calcium 7.9 mg/dL (7.8-10.44); Carbon Dioxide 25 mmol/L (22-29); Chloride 100 mmol/L (98-107); Estimated GFR-MDRD 10; Globulin 2.6 g/dL (2.4-3.5); Glucose 93 mg/dL (70-105); Potassium 4.4 mmol/L (3.5-5.1); Protein, Total 5.7 g/dL (6.0-8.3); Sodium 136 mmol/L (136-145)
[2020-04-04 06:28] LABS: Eosinophils 3 % (0-10); Hemoglobin 8.1 g/dL (12.0-16.0); Hypochromia SLIGHT = 6-15 cells (100X) (0-5/hpf); Lymphocytes 20 % (21-51); MDiff Complete? YES; Mean Corpuscular HGB CONC 32.4 g/dL (32.0-36.0); Mean Corpuscular Hemoglobin 30.1 pg (27.0-31.0); Mean Corpuscular Volume 92.9 fL (78.0-98.0); Mean Platelet Volume 9.1 fL (7.4-10.4); Metamyelocyte 1 % (0-0); Monocytes 9 % (0-10); Neutrophil 67 % (42-75); Platelet Count 132 thou/uL (130-400); Platelet Morphology Comment Appears Adequate; RBC Distribution Width 15.9 % (11.5-14.5); Red Blood Cell (RBC) Count 2.69 mill/uL (4.20-5.40); White Blood Cell (WBC) Count 3.8 thou/uL (4.8-10.8)
[2020-04-04] MEDS: Losartan 25 MG TAB PO SCH (08:20)
[2020-04-04] MEDS: Carvedilol 6.25 MG TAB PO SCH ×2 (08:20→20:24)
[2020-04-04] MEDS: Sevelamer Carbonate 800 MG TAB PO SCH ×4 (08:20→15:56)
[2020-04-04] MEDS: Cephalexin 250 MG CAP PO SCH ×3 (08:20→20:25)
[2020-04-04] MEDS: Apixaban 2.5 MG TAB PO SCH ×2 (08:21→20:23)
[2020-04-04] MEDS: Acetaminophen 500 MG TAB PO PRN ×2 (09:14→15:55)
--- NOTE | 2020-04-04 11:10 | PRG ---
DATE OF SERVICE: SUBJECTIVE: A 54-year-old female being seen for end-stage renal disease. The patient denies any nausea, vomiting, or chest pain. PHYSICAL EXAMINATION: General: The patient is awake and alert. Vital Signs: Afebrile, pulse 84, breathing 16, blood pressure 159/86. HEENT: Head normocephalic and atraumatic. Eyes intact, no ulcers. Nose intact , no ulcers. Ears intact, no ulcers. Neck: Supple. No JVD. Chest: Symmetrical and clear. Cardiovascular: Shows S1 and S2, no rub, no murmur. Gastrointestinal: Abdomen is soft, bowel sounds positive. Extremities: Show no edema or ulcers. Skin: Shows no rash or petechiae. Musculoskeletal: Shows no joint swelling or stiffness. Genitourinary: Shows no Perea or CVA tenderness. Neurologic: Motor intact. Cranial nerves intact. LABORATORY DATA: Labs show hemoglobin 8.1. ASSESSMENT AND PLAN: 1. Stage 6 chronic kidney disease, plan dialysis per schedule. 2. Anemia recommend transfusion. 3. Hypertension. Titrate home medication. 4. Medication based on GFR appropriate. Job ID: [id number] [facility]
--- NOTE | 2020-04-04 11:32 | PDOC.HOSPP ---
- Subjective Encounter Date: 04/04/20 Encounter Time: 11:00 Subjective: no sob or palp has chest wall pain due to cpr - Objective Vital Signs & Weight: Vital Signs (12 hours) Temp Pulse Resp BP BP BP BP 04/04/20 08:20 199/105 H 04/04/20 07:40 97.3 F L 62 18 178/91 H 04/04/20 05:20 159/86 H 04/04/20 03:36 98.0 F 60 14 193/92 H 04/03/20 23:51 17 202/91 H Pulse Ox 04/04/20 08:20 04/04/20 07:40 96 04/04/20 05:20 04/04/20 03:36 95 04/03/20 23:51 Weight Admit Weight 207 lb 14.334 oz Weight 191 lb 5.78 oz Most Recent Monitor Data Heart Rate from ECG 60 NIBP 168/90 NIBP BP-Mean 116 Respiration from ECG 4 SpO2 100 I&O: 04/03/20 04/04/20 04/05/20 06:59 06:59 06:59 Intake Total 940 130 Balance 940 130 Result Diagrams: 04/04/20 05:54 04/04/20 05:54 Additional Labs: Accuchecks 04/04/20 04/03/20 04/03/20 06:08 20:33 16:48 POC Glucose 93 94 98 Hospitalist ROS - Medication Medications: Active Medications Generic Name Dose Route Start Last Admin Trade Name Freq PRN Reason Stop Dose Admin Acetaminophen 1,000 mg 03/30/20 18:02 04/04/20 09:14 Tylenol PO 1,000 mg Q6H PRN Administration Moderate to Severe Pain (6-10) Acetaminophen/Codeine Phosphate 1 tab 03/31/20 18:00 04/04/20 04:23 Tylenol #3 PO 1 tab Q4H PRN Administration Mild Pain (1-3) Acetaminophen/Codeine Phosphate 2 tab 03/31/20 18:00 04/04/20 00:03 Tylenol #3 PO 2 tab Q4H PRN Administration Moderate Pain (4-6) Apixaban 2.5 mg 03/31/20 21:00 04/04/20 08:21 Eliquis PO Not Given BID MICHELLE Carvedilol 12.5 mg 04/02/20 21:00 04/04/20 08:20 Coreg PO 12.5 mg BID MICHELLE Administration Cephalexin 250 mg 04/01/20 09:00 04/04/20 08:20 Keflex PO 04/07/20 21:01 250 mg TID MICHELLE Administration Epoetin Sergio-epbx 10,000 unit 03/31/20 09:00 04/03/20 12:37 Retacrit IVP 10,000 unit MWF [facility]LE Administration Hydralazine HCl 20 mg 03/31/20 17:51 04/04/20 00:03 Apresoline SLOW IVP 20 mg Q6H PRN Administration BP > 180/110 Loperamide HCl 1 mg 04/01/20 12:36 04/01/20 16:22 Imodium PO 1 mg Q4H PRN Administration Diarrhea/Loose Stools Losartan Potassium 50 mg 04/01/20 09:00 04/04/20 08:20 Cozaar PO 50 mg DAILY MICHELLE Administration Pantoprazole Sodium 40 mg 04/01/20 09:00 04/04/20 08:21 Protonix PO 40 mg DAILY [facility]LE Administration Sevelamer Carbonate 2,400 mg 03/28/20 08:00 04/04/20 08:20 Renvela PO 2,400 mg TID-WM MICHELLE Administration Simvastatin 10 mg 03/28/20 21:00 04/03/20 20:28 Zocor PO 10 mg HS MICHELLE Administration Sodium Chloride 10 ml 03/27/20 21:00 04/04/20 08:26 Flush - Normal Saline IVF 10 ml Q12HR MICHELLE Administration - Exam General Appearance: awake alert Eye: PERRL, anicteric sclera ENT: no oropharyngeal lesions, moist mucosa Neck: supple, no JVD Heart: RRR, no murmur Respiratory: no wheezes, no rales Gastrointestinal: soft, non-tender, non-distended, normal bowel sounds Extremities: no cyanosis, no edema Neurological: cranial nerve grossly intact, no focal deficits Psychiatric: A&O x 3 Hosp A/P (1) Cardiac arrest Code(s): I46.9 - CARDIAC ARREST, CAUSE UNSPECIFIED Status: Acute (2) V-tach Code(s): I47.2 - VENTRICULAR TACHYCARDIA Status: Acute (3) Anemia of chronic disease Code(s): D63.8 - ANEMIA IN OTHER CHRONIC DISEASES CLASSIFIED ELSEWHERE Status : Chronic (4) CHF (congestive heart failure) Code(s): I50.9 - HEART FAILURE, UNSPECIFIED Status: Chronic Qualifiers: Heart failure type: diastolic Heart failure chronicity: acute on chronic Qualified Code(s): I50.33 - Acute on chronic diastolic (congestive) heart failure (5) ESRD (end stage renal disease) on dialysis Code(s): N18.6 - END STAGE RENAL DISEASE; Z99.2 - DEPENDENCE ON RENAL DIALYSIS Status: Chronic (6) HLD (hyperlipidemia) Code(s): E78.5 - HYPERLIPIDEMIA, UNSPECIFIED Status: Chronic (7) HTN (hypertension) Code(s): I10 - ESSENTIAL (PRIMARY) HYPERTENSION Status: Chronic Qualifiers: Hypertension type: essential hypertension Qualified Code(s): I10 - Essential (primary) hypertension (8) Obesity (BMI 30-39.9) Code(s): E66.9 - OBESITY, UNSPECIFIED Status: Chronic (9) PAF (paroxysmal atrial fibrillation) Code(s): I48.0 - PAROXYSMAL ATRIAL FIBRILLATION Status: Chronic (10) Type 2 diabetes mellitus Status: Chronic Qualifiers: Diabetes mellitus truck terminal manager insulin use: without custodial use (11) Vision loss of left eye Code(s): H54.62 - UNQUALIFIED VISUAL LOSS, LEFT EYE, NORMAL VISION RIGHT EYE Status: Chronic (12) Physical deconditioning Code(s): R53.81 - OTHER MALAISE Status: Acute - Plan s/p cardiac arrest with cpr of 4 minutes per records, likely sec to hyperkalemia and vol overload on admission. s/p aicd (03/31) with h/o prior pcm [facility]. is on eliquis, cozaar, renvela and coreg. HD on Mon/wed/frid PT to mobilize as tolerated ef of 50%, extubated on 03/30 hemostable is deconditioned, ambulated 20ft with help, will need placement to swing or rehab, d/w CM may dc anytime placement is ready
--- NOTE | 2020-04-04 13:28 | PRG ---
DATE OF SERVICE: 04/04/2020 SUBJECTIVE: Ms. Ness's status is stable. No current complaints. OBJECTIVE: VITAL SIGNS: Blood pressure 173/93, pulse 61, temperature 98.3. LUNGS: Clear to auscultation. HEART: Regular rate and rhythm. ABDOMEN: Soft, nontender, nondistended. EXTREMITIES: No edema. IMPRESSION: 1. [id number] arrest. 2. Ventricular tachycardia. 3. Anemia. 4. End-stage renal disease. RECOMMENDATIONS: From a CV standpoint, she is stable. She is status post ICD on Friday. She has not had any further events. At this point, we would avoid flecainide based on her end-stage renal disease. She is fairly young for long-term amio treatment and may need to just monitor for atrial fibrillation on her ICD. Any further recommendations will be per Dr. Jose Orellana, who is her primary catering operations manager. Again, we would not recommend any further antiarrhythmic therapy based on recent events. Continue on carvedilol in addition to Eliquis. Otherwise, I have no recommendations. Further recommendation per Dr. Jose Orellana. Please re-consult if needed. Job ID: [id number]
[2020-04-04] MEDS: hydrALAZINE 25 MG TAB PO SCH ×2 (15:55→20:25)
[2020-04-04] MEDS: Simvastatin 5 MG TAB PO SCH (20:25)
[2020-04-04] MEDS: cloNIDine 0.1 MG TAB PO SCH (20:25)
--- NOTE | 2020-04-04 20:27 | PDOC.EP ---
- Subjective Date: 03/30/20 Time: 08:00 Interval History: extubated yesterday. she is alert responsive voices no specific cardiac concerns or complaints. She is experiencing no heart racing, palpitations, chest pain, pressure, syncope from a near-syncope stroke or stroke-like symptoms. - Objective Allergies/Adverse Reactions: Allergies Allergy/AdvReac Type Severity Reaction Status Date / Time iodine Allergy Verified 01/14/20 07:39 Current Medications Acetaminophen (Tylenol) 1,000 mg PO Q6H PRN PRN Reason: Moderate to Severe Pain (6-10) Last Admin: 04/04/20 15:55 Dose: 1,000 mg Acetaminophen/Codeine Phosphate (Tylenol #3) 1 tab PO Q4H PRN PRN Reason: Mild Pain (1-3) Last Admin: 04/04/20 04:23 Dose: 1 tab Acetaminophen/Codeine Phosphate (Tylenol #3) 2 tab PO Q4H PRN PRN Reason: Moderate Pain (4-6) Last Admin: 04/04/20 00:03 Dose: 2 tab Apixaban (Eliquis) 2.5 mg PO BID [facility] Last Admin: 04/04/20 08:21 Dose: Not Given Carvedilol (Coreg) 12.5 mg PO BID [facility] Last Admin: 04/04/20 08:20 Dose: 12.5 mg Cephalexin (Keflex) 250 mg PO TID [facility] Stop: 04/07/20 21:01 Last Admin: 04/04/20 15:55 Dose: 250 mg Clonidine (Catapres) 0.1 mg PO BID [facility] Dextrose/Water (Dextrose 50%) 25 gm SLOW IVP PRN PRN PRN Reason: Hypoglycemia Epoetin Sergio-epbx (Retacrit) 10,000 unit IVP MWF [facility] Last Admin: 04/03/20 12:37 Dose: 10,000 unit Glucagon (Glucagon) 1 mg IM PRN PRN PRN Reason: Hypoglycemia Hydralazine HCl (Apresoline) 20 mg SLOW IVP Q6H PRN PRN Reason: BP > 180/110 Last Admin: 04/04/20 00:03 Dose: 20 mg Hydralazine HCl (Apresoline) 25 mg PO TID [facility] Last Admin: 04/04/20 15:55 Dose: 25 mg Dextrose/Water (D5w) 1,000 mls @ 0 mls/hr IV .Q0M PRN PRN Reason: Hypoglycemia Insulin Human Lispro (Humalog) 0 units SC .MILD SLIDING SCALE PRN PRN Reason: Mild Correctional Scale Loperamide HCl (Imodium) 1 mg PO Q4H PRN PRN Reason: Diarrhea/Loose Stools Last Admin: 04/01/20 16:22 Dose: 1 mg Losartan Potassium (Cozaar) 50 mg PO DAILY [facility] Last Admin: 04/04/20 08:20 Dose: 50 mg Pantoprazole Sodium (Protonix) 40 mg PO DAILY [facility] Last Admin: 04/04/20 08:21 Dose: 40 mg Sevelamer Carbonate (Renvela) 2,400 mg PO TID-WM [facility] Last Admin: 04/04/20 15:56 Dose: 2,400 mg Simvastatin (Zocor) 10 mg PO HS [facility] Last Admin: 04/03/20 20:28 Dose: 10 mg Sodium Chloride (Flush - Normal Saline) 10 ml IVF Q12HR [facility] Last Admin: 04/04/20 08:26 Dose: 10 ml Sodium Chloride (Flush - Normal Saline) 10 ml IVF PRN PRN PRN Reason: Saline Flush Sodium Chloride (Flush - Normal Saline) 10 ml IVF PRN PRN PRN Reason: Saline Flush Vital Signs & Weight: Vital Signs Temp Pulse Resp BP BP BP Pulse Ox 04/04/20 15:30 98.0 F 60 16 159/77 H 97 04/04/20 12:14 173/93 H 04/04/20 11:50 98.3 F 61 14 188/107 H 98 04/04/20 10:37 147/70 H Admit Weight 207 lb 14.334 oz Weight 191 lb 5.78 oz I/O: I/O 04/03/20 04/04/20 04/05/20 06:59 06:59 06:59 Intake Total 940 130 320 Balance 940 130 320 - Quality Measures Condition: Atrial Fibrillation/Flutter (hx or current) CV meds: Eliquis: Yes (on hold) - Physical Exam General: alert & oriented x3, appears well, no apparent distress, affect appropriate HEENT: mucus membranes moist, normocephaly Neck: supple neck, midline trachea, no lymphadenopathy Cardiology: regular rate and rhythm, no murmur, PMI nondisplaced Lungs: clear to auscultation, normal breath sounds, no wheeze, rales, rhonchi Neurology: cranial nerve 2-12 intact, grossly intact, sensory function intact Abdomen: unremarkable, active bowel sounds, no pulsations/bruits Extremities: dry, strong pulses, warm Skin: device site stable w/o swelling - Chadsvasc Risk factors Congestive heart failure: 1 Hypertension: 1 Diabetes mellitus: 1 Vascular disease: 1 Female: 1 Risk Score: 5 - Labs Result Diagrams: 04/04/20 05:54 04/04/20 05:54 - EKG Interpretation EKG Method: Telemetry EKG shows: Sinus rhythm - Assessment/Plan Assessment/Plan: 1. Cardiac arrest out of hospital requiring resuscitation CPR for 4 minutes. a. Recurrent ventricular tachycardia with repeat cardioversion en route and in the ER. b. Synchronized ventricular tachycardia nonsustained noted in December 2019. 2. Paroxysmal atrial fibrillation, a. previously on chronic flecainide therapy, managed at [facility]. b. CHADS2-VASC: 5 3. End-stage renal disease, on hemodialysis. 4. History of CHF with preserved LVEF. a. 2D echo from 03/28/2020 shows LVEF 50% to 55%, mildly dilated left atrium, mild LVH, diastolic dysfunction, [id number] aortic stenosis, mild tricuspid regurgitation. Pacer wires in the right-sided chambers. 5. History of sinus node dysfunction, status post dual-chamber [employer] pacemaker this year -with elevated RA and RV thresholds. 6. History of mild coronary artery disease by prior workup. 7. History of diabetes and hyperlipidemia. Plan for upgrade to ICD tomorrow. Patient and give consent. NPO after MN. Hold blood thinner until post implant.
--- NOTE | 2020-04-04 20:37 | PDOC.EP ---
- Subjective Date: 04/04/20 Time: 08:00 - Review of Systems Constitutional: denies: chills, fever, malaise, sweats, weakness Respiratory: denies: cough, dry, hemoptysis, pleuritic pain, shortness of breath , SOB with excertion, sputum, wheezing Cardiology: denies: chest pain, edema, heart racing, light headedness, palpitations, passing out Gastrointestinal: denies: abdominal pain, constipation, vomitting - Objective Allergies/Adverse Reactions: Allergies Allergy/AdvReac Type Severity Reaction Status Date / Time iodine Allergy Verified 01/14/20 07:39 Current Medications Acetaminophen (Tylenol) 1,000 mg PO Q6H PRN PRN Reason: Moderate to Severe Pain (6-10) Last Admin: 04/04/20 15:55 Dose: 1,000 mg Acetaminophen/Codeine Phosphate (Tylenol #3) 1 tab PO Q4H PRN PRN Reason: Mild Pain (1-3) Last Admin: 04/04/20 04:23 Dose: 1 tab Acetaminophen/Codeine Phosphate (Tylenol #3) 2 tab PO Q4H PRN PRN Reason: Moderate Pain (4-6) Last Admin: 04/04/20 00:03 Dose: 2 tab Apixaban (Eliquis) 2.5 mg PO BID [facility] Last Admin: 04/04/20 20:23 Dose: Not Given Carvedilol (Coreg) 12.5 mg PO BID [facility] Last Admin: 04/04/20 20:24 Dose: 12.5 mg Cephalexin (Keflex) 250 mg PO TID [facility] Stop: 04/07/20 21:01 Last Admin: 04/04/20 20:25 Dose: 250 mg Clonidine (Catapres) 0.1 mg PO BID [facility] Last Admin: 04/04/20 20:25 Dose: 0.1 mg Dextrose/Water (Dextrose 50%) 25 gm SLOW IVP PRN PRN PRN Reason: Hypoglycemia Epoetin Sergio-epbx (Retacrit) 10,000 unit IVP [facility] [place] Last Admin: 04/03/20 12:37 Dose: 10,000 unit Glucagon (Glucagon) 1 mg IM PRN PRN PRN Reason: Hypoglycemia Hydralazine HCl (Apresoline) 20 mg SLOW IVP Q6H PRN PRN Reason: BP > 180/110 Last Admin: 04/04/20 00:03 Dose: 20 mg Hydralazine HCl (Apresoline) 25 mg PO TID [facility] Last Admin: 04/04/20 20:25 Dose: 25 mg Dextrose/Water (D5w) 1,000 mls @ 0 mls/hr IV .Q0M PRN PRN Reason: Hypoglycemia Insulin Human Lispro (Humalog) 0 units SC .MILD SLIDING SCALE PRN PRN Reason: Mild Correctional Scale Loperamide HCl (Imodium) 1 mg PO Q4H PRN PRN Reason: Diarrhea/Loose Stools Last Admin: 04/01/20 16:22 Dose: 1 mg Losartan Potassium (Cozaar) 50 mg PO DAILY [facility] Last Admin: 04/04/20 08:20 Dose: 50 mg Pantoprazole Sodium (Protonix) 40 mg PO DAILY [facility] Last Admin: 04/04/20 08:21 Dose: 40 mg Sevelamer Carbonate (Renvela) 2,400 mg PO TID-WM [facility] Last Admin: 04/04/20 15:56 Dose: 2,400 mg Simvastatin (Zocor) 10 mg PO HS [facility] Last Admin: 04/04/20 20:25 Dose: 10 mg Sodium Chloride (Flush - Normal Saline) 10 ml IVF Q12HR [facility] Last Admin: 04/04/20 20:25 Dose: 10 ml Sodium Chloride (Flush - Normal Saline) 10 ml IVF PRN PRN PRN Reason: Saline Flush Sodium Chloride (Flush - Normal Saline) 10 ml IVF PRN PRN PRN Reason: Saline Flush Vital Signs & Weight: Vital Signs Temp Pulse Resp BP BP BP Pulse Ox 04/04/20 15:30 98.0 F 60 16 159/77 H 97 04/04/20 12:14 173/93 H 04/04/20 11:50 98.3 F 61 14 188/107 H 98 04/04/20 10:37 147/70 H Admit Weight 207 lb 14.334 oz Weight 191 lb 5.78 oz I/O: I/O 04/03/20 04/04/20 04/05/20 06:59 06:59 06:59 Intake Total 940 130 320 Balance 940 130 320 - Quality Measures Condition: Atrial Fibrillation/Flutter (hx or current) CV meds: Eliquis: Yes (on hold) - Physical Exam General: alert & oriented x3, appears well, no apparent distress, speech clear, affect appropriate HEENT: mucus membranes moist, normocephaly Neck: supple neck, midline trachea, no lymphadenopathy Cardiology: regular rate and rhythm, no murmur, PMI nondisplaced Lungs: clear to auscultation, normal breath sounds, no wheeze, rales, rhonchi Neurology: cranial nerve 2-12 intact, grossly intact, sensory function intact, no lateralizing findings - Chadsvasc Risk factors Congestive heart failure: 1 Hypertension: 1 Diabetes mellitus: 1 Vascular disease: 1 Female: 1 Risk Score: 5 - Labs Result Diagrams: 04/04/20 05:54 04/04/20 05:54 - EKG Interpretation EKG Method: Telemetry EKG shows: Sinus rhythm - Device Device: dual, defibrillator Device Result: [employer]/[facility] - Assessment/Plan Assessment/Plan: 1. Cardiac arrest out of hospital requiring resuscitation CPR for 4 minutes. a. Recurrent ventricular tachycardia with repeat cardioversion en route and in the ER. b. Synchronized ventricular tachycardia nonsustained noted in December 2019. 2. Paroxysmal atrial fibrillation, on chronic flecainide therapy, managed at [facility]. 3. End-stage renal disease, on hemodialysis. 4. History of CHF with preserved LVEF. a. 2D echo from 03/28/2020 shows LVEF 50% to 55%, mildly dilated left atrium, mild LVH, diastolic dysfunction, [id number] aortic stenosis, mild tricuspid regurgitation. Pacer wires in the right-sided chambers. 5. History of sinus node dysfunction, status post dual-chamber [employer] pacemaker this year -with elevated RA and RV thresholds. 6. History of mild coronary artery disease by prior workup. 7. History of diabetes and hyperlipidemia. s/p upgrade to dual chamber ICD on Friday. No recurrent arrhythmia episodes have been seen. She is ok to resume OAC post ICD implant but at this time declines at this time stating she was told not to take this medication by her solar sales. I am seeking further clarification. At this point she remains in SR.
[2020-04-05 04:05] LABS: Band 3 % (5-11); Eosinophils 3 % (0-10); Hemoglobin 7.7 g/dL (12.0-16.0); Hypochromia SLIGHT = 6-15 cells (100X) (0-5/hpf); Lymphocytes 26 % (21-51); MDiff Complete? YES; Mean Corpuscular HGB CONC 32.3 g/dL (32.0-36.0); Mean Corpuscular Hemoglobin 30.1 pg (27.0-31.0); Mean Corpuscular Volume 93.3 fL (78.0-98.0); Monocytes 10 % (0-10); Neutrophil 58 % (42-75); Platelet Count 126 thou/uL (130-400); Platelet Morphology Comment Appears Adequate; RBC Distribution Width 15.9 % (11.5-14.5); Red Blood Cell (RBC) Count 2.55 mill/uL (4.20-5.40); Tear Drops SLIGHT = 2-5 cells (100X) (0-1/hpf); White Blood Cell (WBC) Count 3.5 thou/uL (4.8-10.8)
[2020-04-05 04:09] LABS: ALT (SGPT) Less than 7 U/L (8-55); AST (SGOT) 11 U/L (5-34); Alkaline Phosphatase 416 U/L (40-110); Anion Gap 19 mmol/L (10-20); BUN (Urea Nitrogen) 30 mg/dL (9.8-20.1); Bilirubin, Total 0.4 mg/dL (0.2-1.2); Calc. Creatinine Clearance 15 mL/min (70-130); Calcium 7.8 mg/dL (7.8-10.44); Carbon Dioxide 22 mmol/L (22-29); Chloride 100 mmol/L (98-107); Estimated GFR-MDRD 8; Globulin 2.4 g/dL (2.4-3.5); Glucose 91 mg/dL (70-105); Potassium 4.7 mmol/L (3.5-5.1); Protein, Total 5.4 g/dL (6.0-8.3); Sodium 136 mmol/L (136-145)
--- NOTE | 2020-04-05 09:40 | PRG ---
DATE OF SERVICE: SUBJECTIVE: A 54-year-old female, being seen for end-stage renal disease. The patient denied nausea, vomiting, or chest pain. OBJECTIVE: GENERAL: The patient is awake and alert. VITAL SIGNS: Afebrile, pulse 75, breathing at 16, blood pressure was 141/69. HEENT: Head normocephalic and atraumatic. Eyes intact, no ulcers. Nose intact, no ulcers. Ears intact, no ulcers. Neck: Supple. No JVD. Chest: Symmetrical and clear. Cardiovascular: Shows S1 and S2, no rub, no murmur. Gastrointestinal: Abdomen is soft, bowel sounds positive. Extremities: Show no edema or ulcers. Skin: Shows no rash or petechiae. Musculoskeletal: Shows no joint swelling or stiffness. Genitourinary: Shows no [place] or CVA tenderness. Neurologic: Motor intact. Cranial nerves intact. LABORATORY DATA: Reviewed. ASSESSMENT: 1. Stage 6 chronic kidney disease. Plan dialysis. 2. Hypertension, stable. 3. Anemia. Recommend 2 units of packed red blood cell transfusion. Job ID: [id number]
--- NOTE | 2020-04-05 09:41 | PDOC.EP ---
- Subjective Date: 04/05/20 Time: 09:34 Interval History: recovering well after ICD upgrade last week. Voices no cardiac complaints today. - Objective Allergies/Adverse Reactions: Allergies Allergy/AdvReac Type Severity Reaction Status Date / Time iodine Allergy Verified 01/14/20 07:39 Current Medications Acetaminophen (Tylenol) 1,000 mg PO Q6H PRN PRN Reason: Moderate to Severe Pain (6-10) Last Admin: 04/04/20 15:55 Dose: 1,000 mg Acetaminophen/Codeine Phosphate (Tylenol #3) 1 tab PO Q4H PRN PRN Reason: Mild Pain (1-3) Last Admin: 04/04/20 04:23 Dose: 1 tab Acetaminophen/Codeine Phosphate (Tylenol #3) 2 tab PO Q4H PRN PRN Reason: Moderate Pain (4-6) Last Admin: 04/04/20 00:03 Dose: 2 tab Apixaban (Eliquis) 2.5 mg PO BID [facility] Last Admin: 04/04/20 20:23 Dose: Not Given Carvedilol (Coreg) 12.5 mg PO BID [facility] Last Admin: 04/04/20 20:24 Dose: 12.5 mg Cephalexin (Keflex) 250 mg PO TID [facility] Stop: 04/07/20 21:01 Last Admin: 04/04/20 20:25 Dose: 250 mg Clonidine (Catapres) 0.1 mg PO BID [facility] Last Admin: 04/04/20 20:25 Dose: 0.1 mg Dextrose/Water (Dextrose 50%) 25 gm SLOW IVP PRN PRN PRN Reason: Hypoglycemia Epoetin Sergio-epbx (Retacrit) 10,000 [place] [facility] Last Admin: 04/03/20 12:37 Dose: 10,000 unit Glucagon (Glucagon) 1 mg IM PRN PRN PRN Reason: Hypoglycemia Hydralazine HCl (Apresoline) 20 mg SLOW IVP Q6H PRN PRN Reason: BP > 180/110 Last Admin: 04/04/20 00:03 Dose: 20 mg Hydralazine HCl (Apresoline) 25 mg PO TID [facility] Last Admin: 04/04/20 20:25 Dose: 25 mg Dextrose/Water (D5w) 1,000 mls @ 0 mls/hr IV .Q0M PRN PRN Reason: Hypoglycemia Insulin Human Lispro (Humalog) 0 units SC .MILD SLIDING SCALE PRN PRN Reason: Mild Correctional Scale Loperamide HCl (Imodium) 1 mg PO Q4H PRN PRN Reason: Diarrhea/Loose Stools Last Admin: 04/01/20 16:22 Dose: 1 mg Losartan Potassium (Cozaar) 50 mg PO DAILY [facility] Last Admin: 04/04/20 08:20 Dose: 50 mg Pantoprazole Sodium (Protonix) 40 mg PO DAILY [facility] Last Admin: 04/04/20 08:21 Dose: 40 mg Sevelamer Carbonate (Renvela) 2,400 mg PO TID-WM [facility] Last Admin: 04/04/20 15:56 Dose: 2,400 mg Simvastatin (Zocor) 10 mg PO HS [facility] Last Admin: 04/04/20 20:25 Dose: 10 mg Sodium Chloride (Flush - Normal Saline) 10 ml IVF Q12HR [facility] Last Admin: 04/04/20 20:25 Dose: 10 ml Sodium Chloride (Flush - Normal Saline) 10 ml IVF PRN PRN PRN Reason: Saline Flush Sodium Chloride (Flush - Normal Saline) 10 ml IVF PRN PRN PRN Reason: Saline Flush Vital Signs & Weight: Vital Signs Temp Pulse Resp BP Pulse Ox 04/05/20 07:22 99.0 F 60 17 197/91 H 96 04/05/20 03:00 98.6 F 60 14 160/79 H 96 04/04/20 23:00 60 15 141/69 H Admit Weight 207 lb 14.334 oz Weight 191 lb 2.252 oz I/O: I/O 04/04/20 04/05/20 04/06/20 06:59 06:59 06:59 Intake Total 130 440 Balance 130 440 - Quality Measures Condition: Atrial Fibrillation/Flutter (hx or current) CV meds: Eliquis: Yes (on hold) - Labs Result Diagrams: 04/05/20 03:46 04/05/20 03:46 - Assessment/Plan Assessment/Plan: 1. Cardiac arrest out of hospital requiring resuscitation CPR for 4 minutes. a. Recurrent ventricular tachycardia with repeat cardioversion en route and in the ER. b. ventricular tachycardia nonsustained noted in December 2019. 2. Paroxysmal atrial fibrillation, on chronic flecainide therapy, managed at [facility]. 3. End-stage renal disease, on hemodialysis. 4. History of CHF with preserved LVEF. a. 2D echo from 03/28/2020 shows LVEF 50% to 55%, mildly dilated left atrium, mild LVH, diastolic dysfunction, [id number] aortic stenosis, mild tricuspid regurgitation. Pacer wires in the right-sided chambers. 5. History of sinus node dysfunction, status post dual-chamber [employer] pacemaker this year -with elevated RA and RV thresholds. 6. History of mild coronary artery disease by prior workup. 7. History of diabetes and hyperlipidemia. s/p upgrade to dual chamber ICD. Rhythm status stable. Was not taking eliquis at home as AF was previously quiescent on flecainide and there was concern over frequent falls. According to neurophysiological technician office no prior bleeding, just concern about potential bleeding with falls. Could consider left atrial appendage closure with a watchman Flex as an outpatient given the concern over senior care OAC therapy but need to wait at least 30 days post ICD implant to minimize chance for lead dislodgement.
[2020-04-05] MEDS ORDERED: Heparin 10,000 UNITS/ 10 ML VIAL ONE (11:02)
[2020-04-05] MEDS: Cephalexin 250 MG CAP PO SCH ×2 (12:11→14:05)
[2020-04-05] MEDS: Apixaban 2.5 MG TAB PO SCH (12:11)
[2020-04-05] MEDS: Sevelamer Carbonate 800 MG TAB PO SCH ×2 (12:11→12:23)
[2020-04-05] MEDS: EPOETIN ALFA-EPBX (ESRD) 10,000 UNIT/ML VIAL IVP SCH (12:12)
[2020-04-05] MEDS: hydrALAZINE 25 MG TAB PO SCH ×2 (12:12→14:06)
[2020-04-05 12:20] VITALS: TEMP 98.7
[2020-04-05] MEDS: Carvedilol 6.25 MG TAB PO SCH (12:23)
[2020-04-05] MEDS: Losartan 25 MG TAB PO SCH (12:23)
[2020-04-05] MEDS: cloNIDine 0.1 MG TAB PO SCH (12:23)
[2020-04-05 12:26] VITALS: BP 199/105
[2020-04-05] MEDS: Acetaminophen/Codeine 30-300mg Tablet PO PRN (12:31)
--- NOTE | 2020-04-05 13:22 | EKG ---
Test Reason : Blood Pressure : / mmHG Vent. Rate : 122 BPM Atrial Rate : 081 BPM P-R Int : 000 ms QRS Dur : 076 ms QT Int : 348 ms P-R-T Axes : 000 060 174 degrees QTc Int : 495 ms Age and gender specific ECG analysis Accelerated Junctional rhythm with frequent Premature ventricular complexes Wide complex rhythm Consider right ventricular involvement in acute inferior infarct Abnormal ECG When compared with ECG of 27-MAR-2020 06:23, (Unconfirmed) Significant changes have occurred Confirmed by ZOHREH BECERRIL, . SFuad ([id number]) on 04/05/2020 1:21:44 PM Referred By: LESLEY Confirmed By:DR. Marilu BRUNER MD
--- NOTE | 2020-04-05 15:26 | DIS ---
DATE OF ADMISSION: 03/27/2020 DATE OF DISCHARGE: 04/05/2020 DISCHARGE DISPOSITION: To home with [facility]. PRIMARY DISCHARGE DIAGNOSES: 1. Status post cardiac arrest with ventricular tachycardia secondary to hyperkalemia and volume overload. 2. Status post automatic implantable cardioverter-defibrillator placement with prior history of [employer] pacemaker. 3. End-stage renal disease, on hemodialysis. 4. Acute on chronic congestive heart failure exacerbation with diastolic dysfunction. 5. Chronic anemia with renal disease. 6. Dyslipidemia. 7. Hypertension. 8. Obesity. 9. Paroxysmal atrial fibrillation, in sinus rhythm. 10. Diabetes mellitus, type 2. 11. Left eye visual loss. 12. Deconditioning. PROCEDURES DONE DURING HOSPITALIZATION: The patient has had placement of AICD on 03/31/[address] Sebastian Patterson. Echo done shows ejection fraction of 50%. Blood cultures x2, no growth. Urine culture, no growth. H and H on discharge are 7.7 and 23.7. She has received 2 units of packed cell after this. Platelet count 126. Initial blood gas done on admission showed a pH of 7.23, pCO2 of 50, pO2 of 139. Discharge BUN and creatinine are 30 and 5.8, serum bicarb 22, potassium 4.7, albumin 3.0. BNP 3103 on admission. COVID-19 PCR was not detected on 03/27/2020. Urine tox screen was negative. DISCHARGE MEDICATIONS: 1. Hydralazine 25 mg 3 times daily. 2. Sevelamer three times daily. 3. Eliquis 2.5 mg twice daily. 4. Coreg 12.5 mg twice daily. 5. Keflex 250 mg p.o. 3 times daily for another 5 days. 6. Clonidine 0.1 mg twice daily. 7. Lidocaine transdermal patch 5% to posterior chest wall for CPR-related pain. 8. Cozaar 50 mg daily. 9. Protonix 40 mg daily. 10. Simvastatin 10 mg p.o. at bedtime. ALLERGIES: ALLERGIC TO IODINE. INPATIENT CONSULTS: 1. Dr. Vasquez for Nephrology. 2. Dr. Cowart for Cardiology. 3. Dr. Mixon for Pulmonology. DISCHARGE PLAN: The patient to follow up with Dr. Orellana, her primary sales representative groceries in 1 to 2 weeks; Dr. Sebastian Patterson, specimen transporter in 2 weeks; Prihoda, her primary care physician in 1 week. BRIEF COURSE DURING HOSPITALIZATION: The patient initially was brought by EMS after she was found down. The patient apparently called EMS for shortness of breath. She is found to be in VFib. She was given shocks and CPR was done for nearly 4 minutes. The patient was transported to the nearest emergency room, where she had another episode of ventricular tachycardia and was cardioverted with 200 joules. The patient was later intubated and transported to ICU here. The patient was initiated on hypothermia protocol on admission. She was successfully extubated on 03/30/2020. The patient has had consultation with Dr. Cowart for Cardiology and Dr. Sebastian Patterson for Electrophysiology. The patient has had AICD placed in addition to her prior pacemaker. She was in paroxysmal atrial fibrillation and has converted to sinus rhythm at the time of discharge. Her medications were optimized during her stay here. The patient has ambulated more than 150 feet prior to discharge. On the day of discharge, the patient's H and H were 7.7 and 23.7, but then reimbursement consultant Dr. Mullen has advised transfusion of 2 units of packed cell. This will be done with hemodialysis and the patient will be discharged after. The patient has refused rehab or further placement services. She would like to go home on [facility], which she already has and will be activated at the time of discharge. Please note, I have seen and examined the patient on the day of discharge. Job ID: [id number]
--- NOTE | 2020-04-08 12:53 | EKG ---
Test Reason : Blood Pressure : / mmHG Vent. Rate : 060 BPM Atrial Rate : 060 BPM P-R Int : 202 ms QRS Dur : 180 ms QT Int : 562 ms P-R-T Axes : 000 -78 092 degrees QTc Int : 562 ms Electronic atrial pacemaker Left axis deviation Non-specific intra-ventricular conduction block Lateral infarct , age undetermined Inferior infarct , age undetermined Abnormal ECG Confirmed by GORDON MEDEIROS ([id number]), editorial cartoonist ENEDINA BELLAMY ([id number]) on 04/08/2020 12:52:15 PM Referred By: Confirmed By:GORDON Guerra
== END 2020-04-05 15:50 | disposition home health service (06) | DRG 265 ==
LOC: ERS 06:03 → CCU 06:04 → 2NO 03-31 17:22
PROVIDERS: ADMIT Internal Medicine; ATTEND Internal Medicine
PROC: 5A1945Z Respiratory Ventilation, 24-96 Consecutive Hours (ICD-10-PCS; principal; 2020-03-27)
PROC: 0BH17EZ Insertion of Endotracheal Airway into Trachea, Via Natural or Artificial Opening (ICD-10-PCS; 2020-03-27)
PROC: 5A2204Z Restoration of Cardiac Rhythm, Single (ICD-10-PCS; 2020-03-27)
PROC: 5A1D70Z Performance of Urinary Filtration, Intermittent, Less than 6 Hours Per Day (ICD-10-PCS; 2020-03-27)
PROC: 05PYX3Z Removal of Infusion Device from Upper Vein, External Approach (ICD-10-PCS; 2020-03-27)
PROC: 06HY33Z Insertion of Infusion Device into Lower Vein, Percutaneous Approach (ICD-10-PCS; 2020-03-27)
PROC: 3E033XZ Introduction of Vasopressor into Peripheral Vein, Percutaneous Approach (ICD-10-PCS; 2020-03-27)
PROC: 0JH63XZ Insertion of Tunneled Vascular Access Device into Chest Subcutaneous Tissue and Fascia, Percutaneous Approach (ICD-10-PCS; 2020-03-29)
PROC: 02HV33Z Insertion of Infusion Device into Superior Vena Cava, Percutaneous Approach (ICD-10-PCS; 2020-03-29)
PROC: B548ZZA Ultrasonography of Superior Vena Cava, Guidance (ICD-10-PCS; 2020-03-29)
PROC: 30233N1 Transfusion of Nonautologous Red Blood Cells into Peripheral Vein, Percutaneous Approach (ICD-10-PCS; 2020-03-30)
PROC: 02H63KZ Insertion of Defibrillator Lead into Right Atrium, Percutaneous Approach (ICD-10-PCS; 2020-03-31)
PROC: 02PA0MZ Removal of Cardiac Lead from Heart, Open Approach (ICD-10-PCS; 2020-03-31)
PROC: 02HK3KZ Insertion of Defibrillator Lead into Right Ventricle, Percutaneous Approach (ICD-10-PCS; 2020-03-31)
DX: I13.2 Hypertensive heart and chronic kidney disease with heart failure and with stage 5 chronic kidney disease, or end stage renal disease (principal); I50.33 Acute on chronic diastolic (congestive) heart failure; I49.01 Ventricular fibrillation; I46.8 Cardiac arrest due to other underlying condition; J96.01 Acute respiratory failure with hypoxia; I47.2 Ventricular tachycardia; E87.2 Acidosis; T82.868A Thrombosis due to vascular prosthetic devices, implants and grafts, initial encounter; D61.818 Other pancytopenia; Z51.5 Encounter for palliative care; Z20.828 Contact with and (suspected) exposure to other viral communicable diseases; E87.5 Hyperkalemia; I48.0 Paroxysmal atrial fibrillation; D63.1 Anemia in chronic kidney disease; E78.5 Hyperlipidemia, unspecified; E66.9 Obesity, unspecified; E11.22 Type 2 diabetes mellitus with diabetic chronic kidney disease; H54.62 Unqualified visual loss, left eye, normal vision right eye; E78.00 Pure hypercholesterolemia, unspecified; K21.9 Gastro-esophageal reflux disease without esophagitis; Y83.2 Surgical operation with anastomosis, bypass or graft as the cause of abnormal reaction of the patient, or of later complication, without mention of misadventure at the time of the procedure; I25.10 Atherosclerotic heart disease of native coronary artery without angina pectoris; E66.01 Morbid (severe) obesity due to excess calories; E11.649 Type 2 diabetes mellitus with hypoglycemia without coma; E87.6 Hypokalemia; Z99.2 Dependence on renal dialysis; Z95.0 Presence of cardiac pacemaker; Z90.710 Acquired absence of both cervix and uterus; Z87.891 Personal history of nicotine dependence; Z79.899 Other long term (current) drug therapy; Z88.8 Allergy status to other drugs, medicaments and biological substances; Z79.51 Long term (current) use of inhaled steroids; Z78.1 Physical restraint status; Z68.33 Body mass index [BMI] 33.0-33.9, adult
CPT/HCPCS: 31500; 33233; 33234; 33249; 36415; 36416; 36430; 36901; 36902; 51702; 71045; 75902; 76942; 80053; 80202; 80306; 81001; 82550; 82553; 82805; 83605; 83735; 83880; 84145; 84443; 84484; 85007; 85025; 85027; 86850; 86900; 86901; 87040; 87070; 87086; 87205; 87340; 90935; 92960; 93005; 93010; 93306; 93970; 94002; 94003; 96365; 96366; 96368; 96376; 99292; C1721; C1725; C1752; C1757; C1777; C9113; G0257; G0365; J0360; J0690; J1200; J1265; J1580; J1642; J1644; J2001; J2060; J2270; J2405; J2543; J2704; J2930; J2997; J3010; J3370; J3490; J7030; J7050; P9016; Q5105; Q9967; S0020; S0028; U0002